=== PATIENT | female | born 1985 | race American Indian/Alaskan Native ===

== ENCOUNTER 2017-01-06 18:04 | Emergency (ER) | payer MEDICAID ==
[2017-01-06 18:30] VITALS: BP 163/99
[2017-01-06] MEDS ORDERED: Diazepam 5 MG Tab ONE (18:40)
[2017-01-06] MEDS ORDERED: Diazepam 5 MG Tab PO ONE (18:43)
[2017-01-06] MEDS ORDERED: Lidocaine 1% 20 ML MDV ONE (18:58)
[2017-01-06] MEDS ORDERED: Lidocaine 1% 20 ML MDV INJECT ONE (19:10)
[2017-01-06] MEDS ORDERED: Bacitracin Oint 30 GM Tube TOP ONE (19:45)
[2017-01-06] MEDS ORDERED: Cephalexin 250 MG Cap PO ONE (19:50)
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
[2017-01-06] MEDS ORDERED: Cephalexin 250 MG Cap ONE (19:56)
== END 2017-01-06 20:10 | disposition home or self-care (01) ==
LOC: KA.ED 18:04
DX: S61.412A Laceration without foreign body of left hand, initial encounter (principal); J45.909 Unspecified asthma, uncomplicated; F41.9 Anxiety disorder, unspecified; F32.9 Major depressive disorder, single episode, unspecified; F17.210 Nicotine dependence, cigarettes, uncomplicated; Z91.09 Other allergy status, other than to drugs and biological substances; Z98.890 Other specified postprocedural states; W26.8XXA Contact with other sharp object(s), not elsewhere classified, initial encounter; Y92.009 Unspecified place in unspecified non-institutional (private) residence as the place of occurrence of the external cause
CPT/HCPCS: 12002; 99283; A9270

== ENCOUNTER 2017-12-05 03:00 | Emergency (ER) | payer MEDICAID ==
[2017-12-05 03:12] VITALS: BP 149/95
[2017-12-05] MEDS: Ibuprofen 600 MG Tab PO ONE (03:30)
[2017-12-05] MEDS: Acetaminophen 500 MG Tab PO ONE (03:30)
[2017-12-05] MEDS ORDERED: Ibuprofen 200 MG Tab PO ONE (03:30)
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
[2017-12-05] MEDS: Ibuprofen 200 MG Tab ONE (03:58)
[2017-12-05] MEDS: Acetaminophen 500 MG Tab ONE (03:58)
== END 2017-12-05 03:50 | disposition home or self-care (01) ==
LOC: KA.ED 03:00
DX: S46.912A Strain of unspecified muscle, fascia and tendon at shoulder and upper arm level, left arm, initial encounter (principal); J45.909 Unspecified asthma, uncomplicated; F17.210 Nicotine dependence, cigarettes, uncomplicated; Z91.011 Allergy to milk products; Z79.899 Other long term (current) drug therapy; X58.XXXA Exposure to other specified factors, initial encounter
CPT/HCPCS: 99283; A9270-GY

== ENCOUNTER 2018-05-27 16:28 | Emergency (ER) | payer MEDICAID ==
[2018-05-27 16:46] VITALS: BP 145/101
[2018-05-27] MEDS: Sodium Chloride 0.9% 1,000 ML IV ONE ×2 (17:00→18:25)
[2018-05-27] MEDS: Ondansetron 4 MG/2 ML SDV IVPUSH ONE ×2 (17:07→18:23)
[2018-05-27 17:25] LABS: ANION GAP 20.3 mmol/L (5-15); CHLORIDE,CL 95 mmol/L (98-115); SODIUM,NA 137 mmol/L (136-145)
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
[2018-05-27] MEDS: HYDROmorphone 1 MG/ML Syringe IVPUSH ONE (18:23)
[2018-05-27] MEDS: LORazepam 2 MG/ML SDV IVPUSH ONE (18:43)
== END 2018-05-27 18:55 ==
LOC: KA.ED 16:33
DX: K81.9 Cholecystitis, unspecified (principal); R11.2 Nausea with vomiting, unspecified; F17.210 Nicotine dependence, cigarettes, uncomplicated; J45.909 Unspecified asthma, uncomplicated; Z91.011 Allergy to milk products
CPT/HCPCS: 80053; 81001; 83690; 85025; 96361; 96374; 96375; 96376; 99285; J1170; J2060; J2405; J7030

== ENCOUNTER 2018-06-07 01:05 | Emergency (ER) | payer MEDICAID ==
[2018-06-07] MEDS: Sodium Chloride 0.9% 5 ML Syringe FLUSH PRN ×2 (01:05→02:05)
[2018-06-07] MEDS ORDERED: Ketorolac 30 MG/ML SDV IVPUSH ONE (02:00)
[2018-06-07 02:02] LABS: ANION GAP 19.8 mmol/L (5-15); CHLORIDE,CL 105 mmol/L (98-115); SODIUM,NA 144 mmol/L (136-145)
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
[2018-06-07] MEDS ORDERED: Sodium Chloride 0.9% 1,000 ML IV ONE (02:05)
[2018-06-07] MEDS ORDERED: Famotidine 20 MG/2 ML SDV IVPUSH ONE (02:25)
[2018-06-07 02:47] VITALS: BP 110/68
== END 2018-06-07 03:00 | disposition home or self-care (01) ==
LOC: KA.ED 01:05
DX: R10.11 Right upper quadrant pain (principal); F10.129 Alcohol abuse with intoxication, unspecified; Y90.8 Blood alcohol level of 240 mg/100 ml or more; Z91.011 Allergy to milk products; Z79.899 Other long term (current) drug therapy
CPT/HCPCS: 80053; 83690; 85025; 85027; 96361; 96374; 96375; 99284; G0480; J1885; J3490; J7030

== ENCOUNTER 2018-07-02 20:25 | Emergency (ER) | payer MEDICAID ==
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
[2018-07-02 21:43] LABS: CHLORIDE,CL 107 mmol/L (98-115); SODIUM,NA 145 mmol/L (136-145)
[2018-07-02] MEDS: Naloxone 0.4 MG/ML Syringe IVPUSH ONE (21:59)
[2018-07-02] MEDS: Naloxone 0.4 MG/ML SDV IVPUSH ONE (21:59)
[2018-07-02 22:44] VITALS: BP 123/78
== END 2018-07-02 22:30 | disposition home or self-care (01) ==
LOC: KA.ED 20:25
DX: F10.920 Alcohol use, unspecified with intoxication, uncomplicated (principal); Z91.011 Allergy to milk products; Z79.899 Other long term (current) drug therapy
CPT/HCPCS: 80053; 80305-QW; 83605; 85025; 96374; 99285; G0480; J2310

== ENCOUNTER 2019-06-18 10:53 | Emergency (ER) | payer MEDICAID ==
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
[2019-06-18] MEDS ORDERED: Sodium Chloride 0.9% 1,000 ML IV ONE (11:10)
[2019-06-18] MEDS ORDERED: Ondansetron 4 MG/2 ML SDV IVPUSH ONE ×2 (11:10→12:25)
[2019-06-18 11:36] VITALS: PULSE 91
[2019-06-18 11:39] LABS: ANION GAP 21.5 mmol/L (5-15); CHLORIDE,CL 100 mmol/L (98-115); SODIUM,NA 141 mmol/L (136-145)
[2019-06-18 11:58] LABS: BARBITURATE SCREEN,URINE NEGATIVE (NEGATIVE); BENZODIAZEPINES SCREEN,URINE NEGATIVE (NEGATIVE); TCA SCREEN,URINE NEGATIVE (NEGATIVE); THC SCREEN,URINE 50 NG/ML NEGATIVE (NEGATIVE)
[2019-06-18 12:20] VITALS: BP 132/69
[2019-06-18] MEDS ORDERED: hydrOXYzine HCl 25 MG Tab PO ONE (14:14)
== END 2019-06-18 14:26 ==
LOC: KA.ED 10:53
DX: F10.230 Alcohol dependence with withdrawal, uncomplicated (principal); K21.9 Gastro-esophageal reflux disease without esophagitis; Z79.899 Other long term (current) drug therapy; Z91.011 Allergy to milk products; Z98.890 Other specified postprocedural states; Z98.51 Tubal ligation status
CPT/HCPCS: 80048; 80305; 80320; 81003; 85025; 96361; 96374; 96376; 99285; A9270; J2405; J7030; G0480

== ENCOUNTER 2019-11-01 17:41 | Inpatient (IN) | payer MEDICAID ==
[2019-11-01] MEDS ORDERED: Sodium Chloride 0.9% 1,000 ML IV ONE (17:48)
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
--- NOTE | 2019-11-01 18:34 | CT ---
[id number] CT/CT Head WO IV EXAM: CT Head WO IV CLINICAL DATA: VOMITING COMPARISON STUDY: CT from 2010. MRI from 2013. FINDINGS: No intracranial hemorrhage, extra-axial fluid collection, mass, or acute ischemia. No hydrocephalus. Mild mucosal thickening in the paranasal sinuses with a small air-fluid level on the left, possibly sinusitis. Mastoid air cells are clear. IMPRESSION: Normal examination of the brain. Mild sinusitis. Kade Velasquez MD 11/01/19 [id number] Thank you for allowing us to participate in the care of your patient.
[2019-11-01 18:48] LABS: ANION GAP 18.9 mmol/L (5-15); CHLORIDE,CL 92 mmol/L (98-115); SODIUM,NA 139 mmol/L (136-145)
[2019-11-01] MEDS ORDERED: D5 1/2 NS w/ 20 mEq/L KCl 1,000 ML IV SCH (19:00)
[2019-11-01] MEDS ORDERED: MVI, Adult with Vitamin K 10 ML in Sodium Chloride 0.9% 1,000 ML IV ONE ×2 (19:01)
[2019-11-01] MEDS ORDERED: Thiamine 100 MG in Sodium Chloride 0.9% 100 ML IV ONE (19:01)
[2019-11-01] MEDS ORDERED: Potassium Chloride 20 MEQ Tab.ER PO ONE (19:02)
[2019-11-01] MEDS ORDERED: chlordiazePOXIDE 25 MG Cap PO ONE (19:02)
[2019-11-01] MEDS ORDERED: Lactulose Soln 10 GM/15 ML 30 ML UD Cup PO PRN (19:04)
[2019-11-01] MEDS ORDERED: Folic Acid 50 MG/10 ML MDV IV SCH (19:15)
[2019-11-01] MEDS ORDERED: Ondansetron 4 MG/2 ML SDV IV PRN (19:22)
[2019-11-01] MEDS ORDERED: chlordiazePOXIDE 25 MG Cap PO PRN (19:24)
[2019-11-01] MEDS ORDERED: THIAMINE IV SCH ×4 (19:26)
[2019-11-01] MEDS ORDERED: FOLIC ACID IV SCH ×4 (19:26)
[2019-11-01] MEDS ORDERED: [UNRECOGNIZED DRUG - OTHER] IV SCH ×4 (19:26)
[2019-11-01] MEDS ORDERED: VITAMIN K IV SCH ×4 (19:26)
[2019-11-01] MEDS ORDERED: MVI IV SCH ×4 (19:26)
[2019-11-01] MEDS ORDERED: FOLIC ACID IV ONE ×4 (19:30)
[2019-11-01] MEDS ORDERED: MVI IV ONE ×4 (19:30)
[2019-11-01] MEDS ORDERED: THIAMINE IV ONE ×4 (19:30)
[2019-11-01] MEDS ORDERED: [UNRECOGNIZED DRUG - OTHER] IV ONE ×4 (19:30)
[2019-11-01] MEDS ORDERED: VITAMIN K IV ONE ×4 (19:30)
[2019-11-01] MEDS ORDERED: Atropine 0.1 MG/ML 10 ML Syringe IVPUSH PRN (20:01)
[2019-11-01] MEDS ORDERED: Lidocaine 2% 100 MG/5 ML Syringe IVPUSH PRN (20:01)
[2019-11-01] MEDS ORDERED: EPINEPHrine 1:10,000 1 MG/10 ML Syringe IVPUSH PRN (20:01)
[2019-11-01] MEDS ORDERED: Nitroglycerin 0.4 MG Tab.SL SL PRN (20:01)
[2019-11-01] MEDS: Non-Formulary Medication 1 Each ONE (20:36)
[2019-11-01] MEDS ORDERED: Mirtazapine 15 MG Tab PO PRN (21:19)
[2019-11-01] MEDS ORDERED: Simethicone 80 MG Tab.Chew PO PRN (21:19)
[2019-11-01] MEDS ORDERED: LORazepam 2 MG/ML SDV IVPUSH PRN (21:23)
[2019-11-02 07:53] LABS: ANION GAP 18.7 mmol/L (5-15); CHLORIDE,CL 97 mmol/L (98-115); SODIUM,NA 141 mmol/L (136-145)
[2019-11-02] MEDS ORDERED: ARIPiprazole 5 MG Tab PO SCH ×3 (09:00→21:00)
[2019-11-02] MEDS: Formoterol/Mometasone 200-5 MCG 8.8 GM Inhaler IH SCH (09:16)
[2019-11-02] MEDS ORDERED: LORazepam 0.5 MG Tab PO PRN (09:34)
[2019-11-02] MEDS ORDERED: Ondansetron 4 MG Tab.DIS PO PRN (09:34)
[2019-11-02] MEDS ORDERED: Albuterol 8 GM Inhaler INH PRN (09:34)
[2019-11-02] MEDS: Omeprazole 20 MG Cap.CR PO SCH (10:27)
[2019-11-02] MEDS: Thiamine 100 MG Tab PO SCH (10:28)
[2019-11-02] MEDS: Meclizine 25 MG Tab PO SCH ×2 (10:28→18:17)
[2019-11-02] MEDS: Potassium Chloride 20 MEQ Tab.ER PO SCH ×2 (10:29→21:21)
[2019-11-02] MEDS: Cholecalciferol (Vitamin D3) 25 MCG Tab PO SCH (10:30)
[2019-11-02] MEDS: Lactulose Soln 10 GM/15 ML 30 ML UD Cup PO SCH (10:30)
[2019-11-02] MEDS: Folic Acid 1 MG Tab PO SCH (10:30)
[2019-11-02] MEDS: Azithromycin 250 MG Tab PO SCH (11:18)
[2019-11-02] MEDS: LORazepam 0.5 MG Tab PO SCH ×2 (15:05→21:20)
[2019-11-02] MEDS: Sodium Chloride 0.9% 10 ML Syringe FLUSH PRN (15:10)
--- NOTE | 2019-11-02 15:10 | US ---
[id number] US/US Abdomen Limited EXAM: ULTRASOUND ABDOMEN LIMITED. INDICATION: ABDOMINAL DISTENTION,RULE OUT ASCITES. COMPARISON: Complete abdominal ultrasound 01/12/2019. DISCUSSION: There is no free fluid identified within the abdomen. It still note is made of gallbladder sludge. No gallbladder wall thickening or pericholecystic fluid. The contestant coordinator reports a positive sonographic Conway's sign. Coarse echotexture of liver consistent with hepatic steatosis. IMPRESSION: 1. No ascites. 2. Hepatic steatosis. 3. Gallbladder sludge without definite sonographic evidence of acute cholecystitis. Raymundo Astorga DO 11/02/19 [id number] Thank you for allowing us to participate in the care of your patient.
[2019-11-02] MEDS: Sodium Chloride 0.9% 1,000 ML IV SCH (15:11)
[2019-11-02] MEDS: Non-Formulary Medication 1 Each ONE (15:59)
[2019-11-02] MEDS: Montelukast 10 MG Tab PO SCH (21:21)
[2019-11-02] MEDS: traZODone 50 MG Tab PO SCH (21:21)
[2019-11-03] MEDS: Meclizine 25 MG Tab PO SCH ×3 (02:39→17:07)
[2019-11-03] MEDS: Sodium Chloride 0.9% 1,000 ML IV SCH ×2 (02:39→16:33)
[2019-11-03 07:49] LABS: ANION GAP 14.7 mmol/L (5-15); CHLORIDE,CL 101 mmol/L (98-115); SODIUM,NA 138 mmol/L (136-145)
--- NOTE | 2019-11-03 08:56 | PN ---
11/02/2019 PATIENT NAME: LA LEA HISTORY OF PRESENT ILLNESS: This is a 34-year-old female, who is admitted through the emergency room last evening, on November 01, 2019, by CHANDRA Ferrara. She was seen in the clinic on 10/30/2019, with vertical and possible labyrinthitis. She was treated with azithromycin as well as meclizine and ondansetron. She had minimal improvement. Apparently last evening, she had a new onset of mild confusion with associated dizziness and nausea and vomiting. The patient states the patient woke up yesterday morning, confused and disoriented. The patient does have a history of significant alcohol use in the past. The reported to the ER provider that the patient has not been drinking a lot lately. The patient did have three glasses of red wine on the day of admission. The reported that he is not clear that that is true since they have no wine in the house. The patient reports to me that her last drink was on . Significant lab data from the emergency room showed a normal CBC with the exception of a mildly low hemoglobin of 11.7 with a normal being 12-16. Her ammonia level was 38 with a normal range being 11-32, and she was given a dose of lactulose 20 mg daily. AST is elevated at 154 with a normal range being 15- 37. ALT is normal at 54 with a normal range being 12-78. Total bilirubin 3.8 with a normal being 0.2-1.0. BUN and creatinine are normal at 15 and 0.65 respectively with a GFR of greater than 60. She did have a blood alcohol level of less than 3. Urine had protein as well as glucose and ketones. Large amount of bilirubin, greater than 8.0, urobilinogen. In the emergency room, she received folic acid, she received IV fluids, a liter bolus of D5 and half with 20 mEq KCl. She was given thiamine as well. She was given a banana bag. She was given a one time dose of potassium. Librium p.r.n. She did have a CT of her brain which was negative. Today, lab work is reviewed and the following abnormalities are noted. Hemoglobin 10.6; potassium 2.7; total bilirubin 3.0. AST 131. Liver function studies have improved. Ammonia level today is 36, previously 38. Janie, the patient's nurse caring for her, is concerned that she does have some abdominal distention and is concerned that she may have some ascites. She does have some jaundice. She is , so the jaundice is only noticed in her sclera. The patient is also complaining of some lower extremity discomfort, possibly related to her hypokalemia. I did frankly address her alcohol intake with her. I had a mariel discussion with her regarding the fact that her alcohol use is starting to affect her overall health with damage to her liver as well as impairment of the liver's ability to filter out ammonia. She did seem to understand the conversation. PHYSICAL EXAMINATION: VITAL SIGNS: Temp is 98, pulse 111, respirations 20, blood pressure 110/70, O2 saturation is 96% on room air. SKIN: Warm and dry to touch. She does have scleral jaundice. CARDIAC: Reveals S1, S2 to be normal. Rate and rhythm are regular. No murmur, click, or gallop is auscultated. LUNGS: Clear with possible diminished lung sounds in the bases. The patient is a smoker. ABDOMEN: Somewhat distended and somewhat bloated. Bowel sounds are present in all four quadrants. There is no pedal edema. IMPRESSION: 1. Labyrinthitis, treated with azithromycin as well as meclizine and ondansetron. Little relief in failure of outpatient treatment. 2. Acute confusion, etiology unclear. Possibly related to alcohol use and elevated ammonia level. 3. Elevated bilirubin as well as AST, most likely related to alcoholism. 4. Hypokalemia. She will be given 40 mg of potassium today orally b.i.d. 5. Abdominal distention, possible ascites. She will be scheduled for an abdominal ultrasound today. 6. Lower extremity discomfort, most likely related to hypokalemia. 7. The nursing staff is also concerned of the concentration of her liver, most likely related to elevated bilirubin. We will start her on IV fluids of normal saline with potassium at 75 mL an hour. We will continue to follow closely. I anticipate her being in the hospital now for the next couple of days. Possible discharge in mid to later in the week. /[id number]/MODL
[2019-11-03] MEDS ORDERED: Potassium Bicarbonate 25 MEQ Tab.EFF PO SCH (09:00)
[2019-11-03] MEDS ORDERED: Non-Formulary Medication 1 Each (Cyanocobalamin (Vitamin B-12) [Vitamin B-12] 100 MCG) PO SCH (09:00)
[2019-11-03] MEDS ORDERED: Iopamidol 755 Mg/ML 100 ML Bottle IV ONE (09:14)
[2019-11-03] MEDS ORDERED: Sodium Chloride 0.9% 50 ML IV SCH (09:15)
[2019-11-03] MEDS: Formoterol/Mometasone 200-5 MCG 8.8 GM Inhaler IH SCH (09:42)
[2019-11-03] MEDS ORDERED: Magnesium Sulfate/Water 2 GM in Premix Bag 1 BAG IV ONE (10:39)
[2019-11-03] MEDS: LORazepam 0.5 MG Tab PO SCH ×2 (11:29→20:48)
[2019-11-03] MEDS: Folic Acid 1 MG Tab PO SCH (11:29)
[2019-11-03] MEDS: Lactulose Soln 10 GM/15 ML 30 ML UD Cup PO SCH (11:29)
[2019-11-03] MEDS: Cholecalciferol (Vitamin D3) 25 MCG Tab PO SCH (11:30)
[2019-11-03] MEDS: Thiamine 100 MG Tab PO SCH (11:30)
[2019-11-03] MEDS: Potassium Chloride 20 MEQ Tab.ER PO SCH ×2 (11:30→20:49)
[2019-11-03] MEDS: Omeprazole 20 MG Cap.CR PO SCH (11:30)
[2019-11-03] MEDS: Azithromycin 250 MG Tab PO SCH (11:30)
--- NOTE | 2019-11-03 12:10 | CT ---
[id number] CT/CT Chest Abdomen Pelvis W IV EXAM: CT Chest Abdomen Pelvis W IV CLINICAL DATA: ELEVATED LIVER ENZYMES, ABDOMINAL DISTENTION. COMPARISON STUDY: CT from June 2018. FINDINGS: No suspicious lung nodules or masses. Subsegmental atelectasis and/or scarring in both lung bases. Heart is normal in size and contour. No pericardial effusion. Thoracic aorta is normal in caliber. No dissection. No mediastinal or hilar lymphadenopathy. Abdomen/pelvis: Liver demonstrates changes of diffuse steatosis and hepatomegaly. There is geographic hyperdensity in the superior right hepatic lobe. However no focal lesions or biliary ductal dilation. Portal vein is normal in caliber. Gallbladder is distended but otherwise unremarkable. Pancreas, adrenal glands, spleen, and kidneys are unremarkable. No ascites. No lymphadenopathy in the abdomen or pelvis. Uterus and adnexal regions are unremarkable. Bones/soft tissues: Unremarkable. IMPRESSION: Hepatomegaly and diffuse steatosis. No focal hepatic lesions, described above. Gallbladder distention without radiographic evidence of cholelithiasis or acute cholecystitis. Findings are similar to prior CT examination from 2018. Other findings are described above. Kade Velasquez MD 11/03/19 [id number] Thank you for allowing us to participate in the care of your patient.
[2019-11-03] MEDS: Montelukast 10 MG Tab PO SCH (20:48)
[2019-11-03] MEDS: traZODone 50 MG Tab PO SCH (20:49)
[2019-11-04] MEDS: Meclizine 25 MG Tab PO SCH ×3 (02:31→17:50)
[2019-11-04] MEDS: Sodium Chloride 0.9% 1,000 ML IV SCH ×2 (06:42→20:32)
[2019-11-04 07:57] LABS: CHLORIDE,CL 104 mmol/L (98-115); SODIUM,NA 139 mmol/L (136-145)
[2019-11-04] MEDS: Cholecalciferol (Vitamin D3) 25 MCG Tab PO SCH (08:19)
[2019-11-04] MEDS: LORazepam 0.5 MG Tab PO SCH ×2 (08:19→20:41)
[2019-11-04] MEDS: Azithromycin 250 MG Tab PO SCH (08:19)
[2019-11-04] MEDS: Potassium Chloride 20 MEQ Tab.ER PO SCH ×2 (08:19→20:44)
[2019-11-04] MEDS: Lactulose Soln 10 GM/15 ML 30 ML UD Cup PO SCH ×4 (08:19→20:45)
[2019-11-04] MEDS: Folic Acid 1 MG Tab PO SCH (08:20)
[2019-11-04] MEDS: Thiamine 100 MG Tab PO SCH (08:20)
[2019-11-04] MEDS: Omeprazole 20 MG Cap.CR PO SCH (08:20)
[2019-11-04] MEDS: Formoterol/Mometasone 200-5 MCG 8.8 GM Inhaler IH SCH (08:23)
--- NOTE | 2019-11-04 09:31 | PCM.PN ---
- General Info Date of Service: 11/04/19 Admission Dx/Problem (Free Text): Altered mental status, hypokalemia. - Review of Systems Systems Review Comment:: Archana is seen today in inpatient rounds. She was admitted on 11/01/2019 with altered mental status and hypokalemia. She had been seen the previous day in the clinic and diagnosed with labyrinthitis. She has a hx of alcohol abuse and her ammonia level was elevated upon admission. She was started on lactulose 20 grams PO daily. Ammonia was normal yesterday at 29 but today is 51. She notes this morning on rounds she feels more confused. She oriented, however. She is resting soundly when I see her. She denies any other concerns. She as having muscle cramping yesterday and her magnesium was noted to be low and that was replaced and she feels better. Her potassium is normal now. - Patient Data Vitals - Most Recent: Last Vital Signs Temp 96.5 F 11/04/19 06:48 Pulse 88 11/04/19 06:48 Resp 24 H 11/04/19 06:48 BP 115/73 11/04/19 06:48 Pulse Ox 95 11/04/19 06:48 Weight - Most Recent: 152 lb 9 oz I&O - Last 24 Hours: Intake & Output 11/03/19 11/04/19 11/04/19 22:59 06:59 14:59 Intake Total 1409 772 Output Total 500 450 Balance 909 322 Lab Results Last 24 Hours: Laboratory Results - last 24 hr 11/03/19 11/04/19 11/04/19 Range/Units 07:05 07:00 07:00 WBC 11.40 H (5.00-10.00) 10^3/uL RBC 2.86 L (3.80-5.50) 10^6/uL Hgb 9.8 L (12.0-16.0) g/dL Hct 30.4 L (37.0-47.0) % MCV 106.3 H (82.0-92.0) fL MCH 34.3 H (27.0-31.0) pg MCHC 32.2 (32.0-36.0) g/dL RDW 16.6 H (11.5-14.5) % Plt Count 233 (150-400) 10^3/uL MPV 9.5 (7.4-10.4) fL Add Manual Diff Yes Neutrophils % (Manual) 68 (50-70) % Lymphocytes % (Manual) 18 L (20-40) % Monocytes % (Manual) 12 H (2-8) % Eosinophils % (Manual) 2 (1-3) % Absolute Neutrophils 7.7520 Lymphocytes # (Manual) 2.0520 Monocytes # (Manual) 1.3680 Eosinophils # (Manual) 0.2280 Sodium 139 (136-145) mmol/L Potassium 4.2 (3.3-5.3) mmol/L Chloride 104 (98-115) mmol/L Carbon Dioxide 23.2 (21.0-32.0) mmol/L Anion Gap 16.0 H (5-15) mmol/L BUN 5 L (6-25) mg/dL Creatinine 0.50 L (0.51-1.17) mg/dL Est Cr Clr Drug Dosing 112.80 mL/min Estimated GFR (MDRD) > 60 mL/min Glucose 103 H (75 - 99) mg/dL Calcium 8.5 L (8.7-10.3) mg/dL Magnesium 1.5 L 1.9 (1.8-2.4) mg/dL Total Bilirubin 2.6 H (0.2-1.0) mg/dL AST 75 H (15-37) U/L ALT 31 (12-78) U/L Alkaline Phosphatase 103 (46-116) IU/L Ammonia (11-32) umol/L Total Protein 6.2 L (6.4-8.2) g/dL Albumin 2.60 L (3.00-4.80) g/dL 11/04/19 Range/Units 07:00 WBC (5.00-10.00) 10^3/uL RBC (3.80-5.50) 10^6/uL Hgb (12.0-16.0) g/dL Hct (37.0-47.0) % MCV (82.0-92.0) fL MCH (27.0-31.0) pg MCHC (32.0-36.0) g/dL RDW (11.5-14.5) % Plt Count (150-400) 10^3/uL MPV (7.4-10.4) fL Add Manual Diff Neutrophils % (Manual) (50-70) % Lymphocytes % (Manual) (20-40) % Monocytes % (Manual) (2-8) % Eosinophils % (Manual) (1-3) % Absolute Neutrophils Lymphocytes # (Manual) Monocytes # (Manual) Eosinophils # (Manual) Sodium (136-145) mmol/L Potassium (3.3-5.3) mmol/L Chloride (98-115) mmol/L Carbon Dioxide (21.0-32.0) mmol/L Anion Gap (5-15) mmol/L BUN (6-25) mg/dL Creatinine (0.51-1.17) mg/dL Est Cr Clr Drug Dosing mL/min Estimated GFR (MDRD) mL/min Glucose (75 - 99) mg/dL Calcium (8.7-10.3) mg/dL Magnesium (1.8-2.4) mg/dL Total Bilirubin (0.2-1.0) mg/dL AST (15-37) U/L ALT (12-78) U/L Alkaline Phosphatase (46-116) IU/L Ammonia 51 H (11-32) umol/L Total Protein (6.4-8.2) g/dL Albumin (3.00-4.80) g/dL Med Orders - Current: Current Medications Albuterol (Ventolin Hfa) 0 gm INH Q4H PRN PRN Reason: Wheezing Atropine Sulfate (Atropine 0.1 Mg/Ml) 0 mg IVPUSH ASDIRECTED PRN PRN Reason: Heart. Azithromycin (Zithromax) 250 mg PO DAILY [facility] Last Admin: 11/04/19 08:19 Dose: 250 mg Cholecalciferol (Vitamin D3) 50 mcg PO DAILY [facility] Last Admin: 11/04/19 08:19 Dose: 50 mcg Epinephrine HCl (Epinephrine 1:10,000) 1 mg IVPUSH ASDIRECTED PRN PRN Reason: Heart. Folic Acid (Folic Acid) 1 mg PO DAILY [facility] Last Admin: 11/04/19 08:20 Dose: 1 mg Sodium Chloride (Normal Saline) 1,000 mls @ 75 mls/hr IV ASDIRECTED [facility] Last Admin: 11/04/19 06:42 Dose: 75 mls/hr Sodium Chloride (Normal Saline) 50 mls @ 200 mls/min IV ASDIRECTED [facility] Last Admin: 11/03/19 11:17 Dose: 200 mls/min Lactulose (Cephulac) 20 gm PO TID [facility] Lidocaine HCl (Xylocaine 2%) 0 mg IVPUSH ASDIRECTED PRN PRN Reason: Heart. Lorazepam (Ativan) 1 mg IVPUSH Q4H PRN PRN Reason: Withdrawal Symptoms Lorazepam (Ativan) 0.5 mg PO BID [facility] Last Admin: 11/04/19 08:19 Dose: 0.5 mg Meclizine HCl (Antivert) 25 mg PO Q8H [facility] Last Admin: 11/04/19 02:31 Dose: 25 mg Mirtazapine (Remeron) 15 mg PO DAILY PRN PRN Reason: Insomnia Mometasone Furoate/Formoterol Fumar (Dulera 200-5 Mcg) 2 puff IH DAILY [facility] Last Admin: 11/04/19 08:23 Dose: 2 puff Montelukast Sodium (Singulair) 10 mg PO BEDTIME [facility] Last Admin: 11/03/19 20:48 Dose: 10 mg Nitroglycerin (Nitrostat) 0.4 mg SL ASDIRECTED PRN PRN Reason: Heart. Omeprazole (Omeprazole) 40 mg PO DAILY [facility] Last Admin: 11/04/19 08:20 Dose: 40 mg Ondansetron HCl (Zofran) 4 mg IV Q6H PRN PRN Reason: Nausea/Vomiting Ondansetron HCl (Zofran Odt) 4 mg PO Q6H PRN PRN Reason: Nausea/Vomiting Potassium Chloride (Klor-Con M20) 40 meq PO BID [facility] Last Admin: 11/04/19 08:19 Dose: 40 meq Simethicone (Simethicone) 80 mg PO DAILY PRN PRN Reason: Dyspepsia Sodium Chloride (Saline Flush) 10 ml FLUSH Q8HR PRN PRN Reason: keep vein open Last Admin: 11/02/19 15:10 Dose: 10 ml Thiamine HCl (Vitamin B-1) 100 mg PO DAILY [facility] Last Admin: 11/04/19 08:20 Dose: 100 mg Trazodone HCl (Trazodone) 100 mg PO BEDTIME [facility] Last Admin: 11/03/19 20:49 Dose: 100 mg Discontinued Medications Chlordiazepoxide HCl (Librium) 50 mg PO ONETIME ONE Stop: 11/01/19 19:03 Last Admin: 11/01/19 20:24 Dose: 50 mg Chlordiazepoxide HCl (Librium) 25 mg PO TID PRN PRN Reason: Agitation Sodium Chloride (Normal Saline) 1,000 mls @ 999 mls/hr IV .BOLUS ONE Stop: 11/01/19 18:48 Last Admin: 11/01/19 18:52 Dose: 999 mls/hr Folic Acid 1 mg/ Multivitamins /Minerals 10 ml/ Thiamine HCl 100 mg/ Potassium Chloride/Dextrose/Sod Cl 1,011.2 mls @ as directed IV .STK-MED ONE Stop: 11/01/19 19:31 Folic Acid 1 mg/ Multivitamins /Minerals 10 ml/ Thiamine HCl 100 mg/ Potassium Chloride/Dextrose/Sod Cl 1,011.2 mls @ 100 mls/hr IV ASDIRECTED [facility] Last Admin: 11/01/19 19:32 Dose: 100 mls/hr Magnesium Sulfate 2 gm/ Premix 50 mls @ 100 mls/hr IV ONETIME ONE Stop: 11/03/19 11:08 Last Admin: 11/03/19 11:34 Dose: 100 mls/hr Iopamidol (Isovue-370 (76%)) 100 ml IV ONETIME ONE Stop: 11/03/19 09:15 Last Admin: 11/03/19 11:17 Dose: 100 ml Lactulose (Cephulac) 20 gm PO DAILY PRN PRN Reason: Agitation Lactulose (Cephulac) 20 gm PO DAILY [facility] Last Admin: 11/04/19 08:19 Dose: 20 gm Lorazepam (Ativan) 1 mg PO BEDTIME PRN PRN Reason: Anxiety Non-Formulary Medication (Nf Drug) 1 each .XX ONETIME ONE Stop: 11/01/19 19:28 Last Admin: 11/02/19 15:59 Dose: Not Given Potassium Bicarbonate (Klor-Con Ef) 25 meq PO DAILY [facility] Potassium Chloride (Klor-Con M20) 40 meq PO ONETIME ONE Stop: 11/01/19 19:03 Last Admin: 11/01/19 20:23 Dose: 40 meq - Exam General: Alert, Oriented, Cooperative, No Acute Distress Lungs: Clear to Auscultation, Normal Respiratory Effort Cardiovascular: Regular Rate, Regular Rhythm, No Murmurs GI/Abdominal Exam: Normal Bowel Sounds, Soft, Non-Tender Extremities: No Pedal Edema Sepsis Event Note - Evaluation Sepsis Screening Result: Severe Sepsis Risk - Focused Exam Vital Signs: Vital Signs Temp Pulse Resp BP Pulse Ox 11/04/19 06:48 96.5 F 88 24 H 115/73 95 11/04/19 02:43 97.1 F 100 24 H 106/64 93 L 11/03/19 23:00 96.1 F 98 24 H 103/65 97 Date Exam was Performed: 11/04/19 Time Exam was Performed: 09:25 - Problem List Review Problem List Initiated/Reviewed/Updated: Yes - My Orders Last 24 Hours: My Active Orders 11/03/19 09:15 Sodium Chloride 0.9% [Normal Saline] 50 ml IV ASDIRECTED 11/04/19 09:00 Lactulose [Cephulac] 20 gm PO TID - Assessment Assessment:: Altered mental status Hypokalemia Hyperammonemia Hx of alcohol abuse Hypomagnesemia Bipolar disorder Anemia, chronic - Plan Plan:: Altered mental status, subjectively more confused today with elevated ammonia today. Will increase lactulose. Hypokalemia, resolved. Hyperammonemia,m increase lactulose to 20 grams PO TID. She will likely need to be on his as an outpatient. Hx of alcohol abuse Hypomagnesemia, resolved with replacement. Bipolar disorder, continue outpatient meds. Anemia, chronic, no indication for blood transfusion.
--- NOTE | 2019-11-04 11:30 | PN ---
11/03/2019 PATIENT NAME: LA LEA HISTORY OF PRESENT ILLNESS: This is a 34-year-old female who was admitted through the emergency room on 11/01/2019. She was initially seen in the clinic on 10/30/2019, with vertigo and possible labyrinthitis. She was treated with azithromycin as well as meclizine and ondansetron. She had minimal improvement. She had presented to the ER on the with confusion associated with dizziness, nausea, and vomiting. She had woke up the day of admission with confusion and disorientation. The patient does have a history of alcohol abuse and possible alcoholism. She did report to the ER provider that she had three glasses of wine on the day of admission, however, her declined this was true due to the fact that they had no wine in house. The patient's last drink was on , 10/29/2019. Yesterday, there was concern that she had abdominal distention. We did do an ultrasound of her abdomen which showed some steatosis of the liver, however, no ascites. She continues to have some abdominal distention as well as some shortness of breath. She has been hypokalemic since admission and was treated with oral potassium replacement. Today, her potassium is normal at 3.4. She had an elevated ammonia level at 38 on admission which decreased to 36 yesterday and now after 2 days of lactulose her ammonia level is 29. Liver function tests are improving. ALT has been normal. AST has been elevated as high as 154 on admission and now is 99, which is still elevated. Her renal function is good. She has just a little bit of a white count today of 10,000. It has been normal up until this point. She does not have any fever. We did check a magnesium today and found to be 1.5. The patient has been complaining of some lower extremity discomfort, which prompted us to check her magnesium. There has been mariel discussion with the patient in regard to her alcohol use and the effect that it is having on her health. PHYSICAL EXAMINATION: VITAL SIGNS: Temp is 97, pulse 95, respirations 16, blood pressure 111/77, and O2 saturation is 94% on room air. SKIN: Warm and dry to touch. HEENT: Sclerae are jaundice. CARDIAC: Reveals S1, S2 to be normal. Rate and rhythm are regular. No murmur, click, or gallop is auscultated. LUNGS: She does have some fine rales in the right lower lobe. The remainder of the lung [place] are clear. ABDOMEN: Distended, nontender. No hepatosplenomegaly or masses palpated. Bowel sounds are present in all four quadrants. There is no pedal edema. IMPRESSION: 1. Labyrinthitis. She is being treated with azithromycin as well as meclizine and ondansetron. She did have little relief as an outpatient and did fail outpatient treatment. She continues on both in the hospital. 2. Acute confusion, etiology unclear. CT scan in the emergency room was negative. This may be related to her alcohol abuse and elevated ammonia level. 3. Elevated bilirubin as well as AST, most likely related to alcoholism. These are trending downward. As previously mentioned, her AST was initially 154 and is now 19. Her total bilirubin has improved from 3.1 to 2.8. 4. Hypokalemia. She is now normal clinic with a potassium of 3.4. We will continue potassium supplementation. 5. Abdominal distention with ascites ruled out by ultrasound. We did do an abdominal and pelvis CT with contrast, which did not show any acute findings. 6. Lower extremity discomfort, most likely related to hypomagnesemia. 7. Hypomagnesemia. She was given 2 g of magnesium today intravenously. We will check her magnesium beginning tomorrow. 8. She did have quite concentrated urine and was possibly dry yesterday. We did start her on normal saline at 75 mL an hour. 9. Shortness of breath with activity as well as rales in the right lower quadrant. We did do a CT of her chest, which showed no acute findings either. We will continue to monitor closely. Thankfully, the patient is improving. We will entertain possibly discharging her from the hospital on or Saturday of this week. I have communicated my findings with Dr. La Nena Miller, who will see the patient tomorrow in my absence. I will see the patient again on and plan for her discharge. I did address the patient's alcohol abuse with her and willing to be of any assistance I can as far as getting her into the proper treatment program. She will consider this. /[id number]/MODL
[2019-11-04] MEDS: Ibuprofen 600 MG Tab PO PRN (15:28)
[2019-11-04] MEDS: Montelukast 10 MG Tab PO SCH (20:43)
[2019-11-04] MEDS: traZODone 50 MG Tab PO SCH (20:44)
[2019-11-05] MEDS: Meclizine 25 MG Tab PO SCH ×3 (01:12→16:49)
[2019-11-05] MEDS: Ibuprofen 600 MG Tab PO PRN (07:56)
[2019-11-05 08:10] LABS: ANION GAP 17.2 mmol/L (5-15); CHLORIDE,CL 107 mmol/L (98-115); SODIUM,NA 144 mmol/L (136-145)
[2019-11-05] MEDS: Lactulose Soln 10 GM/15 ML 30 ML UD Cup PO SCH ×4 (08:18→20:38)
[2019-11-05] MEDS: Folic Acid 1 MG Tab PO SCH (08:18)
[2019-11-05] MEDS: LORazepam 0.5 MG Tab PO SCH ×2 (08:18→20:38)
[2019-11-05] MEDS: Potassium Chloride 20 MEQ Tab.ER PO SCH (08:18)
[2019-11-05] MEDS: Thiamine 100 MG Tab PO SCH (08:18)
[2019-11-05] MEDS: Cholecalciferol (Vitamin D3) 25 MCG Tab PO SCH (08:18)
[2019-11-05] MEDS: Omeprazole 20 MG Cap.CR PO SCH (08:18)
[2019-11-05] MEDS: Formoterol/Mometasone 200-5 MCG 8.8 GM Inhaler IH SCH (08:47)
[2019-11-05] MEDS: traZODone 50 MG Tab PO SCH (20:37)
[2019-11-05] MEDS: Montelukast 10 MG Tab PO SCH (20:37)
[2019-11-05] MEDS: Sodium Chloride 0.9% 10 ML Syringe FLUSH PRN (20:44)
[2019-11-06] MEDS: Meclizine 25 MG Tab PO SCH ×2 (02:47→09:25)
[2019-11-06] MEDS: Folic Acid 1 MG Tab PO SCH (08:31)
[2019-11-06] MEDS: Lactulose Soln 10 GM/15 ML 30 ML UD Cup PO SCH (08:31)
[2019-11-06] MEDS: Omeprazole 20 MG Cap.CR PO SCH (08:31)
[2019-11-06] MEDS: LORazepam 0.5 MG Tab PO SCH (08:31)
[2019-11-06] MEDS: Thiamine 100 MG Tab PO SCH (08:31)
[2019-11-06] MEDS: Formoterol/Mometasone 200-5 MCG 8.8 GM Inhaler IH SCH (08:32)
[2019-11-06] MEDS: Cholecalciferol (Vitamin D3) 25 MCG Tab PO SCH (08:32)
[2019-11-06 08:35] LABS: ANION GAP 22.1 mmol/L (5-15); CHLORIDE,CL 100 mmol/L (98-115); SODIUM,NA 139 mmol/L (136-145)
--- NOTE | 2019-11-06 08:43 | PN ---
11/05/2019 PATIENT NAME: LA LEA HISTORY OF PRESENT ILLNESS: This is a 34-year-old female, who was admitted through the emergency room on 11/01/2019 with vertigo and possible labyrinthitis as well as mental confusion. She was seen in the clinic on 10/30/2019 for the same and was treated with azithromycin as well as meclizine and ondansetron. The patient does have a history of alcohol abuse and her ammonia level was elevated on admission. She was started on lactulose 20 mg p.o. daily. Her ammonia was normal on 11/03/2019; however, yesterday went up to 51. Lactulose was increased to t.i.d. Initially, her ammonia level was reported out this morning as 27; however, was corrected to be 68. We will increase her lactulose to q.i.d. The patient reports she feels more confused and has thought that she was talking to people that were not there and that people have visited her that have not been there. She is oriented though. She was having muscle cramping in her legs on 11/03/2019; however, this was improved with magnesium. Pertinent lab results, she does have a mild white count of 10,520. CMP is normal with the exception of an elevated bilirubin of 3.0, which is about where it has been during this hospitalization. Her AST has improved from 154 to 68. Total protein and albumin are low at 5.9 and 2.49 respectively. Iron studies were performed, which showed a normal serum iron, elevated ferritin of 887, TIBC of 247, and unsaturated IBC of 106. Magnesium was normal yesterday after being replaced with oral magnesium. Her potassium today was 5.0. Ammonia level today was 68 as previously reported. The patient continues to complain of some abdominal distention. She has had CT scans of her head, chest, abdomen and pelvis with no acute findings. PHYSICAL EXAMINATION: VITAL SIGNS: Temperature is 96.9, pulse 96, respirations 20, blood pressure 105/63, O2 saturation is 93% on room air. EYES: Sclerae are jaundiced. SKIN: Warm and dry to touch. CARDIAC: Reveals S1, S2 to be normal. Rhythm is normal. She is somewhat tachycardic in the 115s. No murmur, click, or gallop is appreciated. LUNGS: Clear without rales, wheezes, or rhonchi. ABDOMEN: Soft, somewhat distended, with positive bowel sounds in all 4 quadrants. There is no pedal edema. IMPRESSION: 1. Labyrinthitis. We did discontinue her azithromycin since she has been treated with the antibiotic for 6 days. She will continue on meclizine as well as ondansetron. 2. Confusion, etiology unclear. CT of the head was negative. This may be related to the elevated ammonia level. 3. Elevated bilirubin. This continues to be elevated and is not trending downward. 4. Elevated aspartate aminotransferase. This is still elevated; however, is trending downward. 5. Hypokalemia. She is now normokalemic and we will discontinue her potassium supplement. 6. Abdominal distention with ascites ruled out by ultrasound as well as CT. 7. Lower extremity discomfort, improved after magnesium replacement. 8. Hypomagnesemia. She was given 2 g of magnesium on 11/03/2019, and now her magnesium is normal. 9. She is drinking adequately and having regular voids. We did discontinue her IV fluids today. 10.Shortness of breath with activity. She did have rales two days ago. We did do a CT of her chest, which was negative. She is becoming somewhat deconditioned. I did request the nursing staff to get her up and walk her today. We will entertain discharge tomorrow with her going home on oral lactulose. We have again had a mariel discussion about her alcohol use and the fact that she should consider never drinking alcohol again. She verbalizes understanding. We will continue to monitor. I will see her tomorrow and consider discharge if everything is stable. We did add a hepatitis panel onto her lab work today to rule out any kind of hepatitis etiology for liver dysfunction. /[id number]/MODL
[2019-11-06] MEDS: Ibuprofen 600 MG Tab PO PRN (10:47)
[2019-11-06 11:53] VITALS: BP 114/69; PULSE 105
--- NOTE | 2019-11-09 08:29 | DISCH ---
DISCHARGE/TRANSFER NOTE This is a 34-year-old female, who has been hospitalized with vertigo, possible labyrinthitis, mental confusion, elevated bilirubin, elevated aspartate aminotransferase, hypomagnesemia, hypokalemia, and elevated ammonia level. She was initially seen in the clinic a week ago on 10/30/2019 for what was thought to be labyrinthitis. She was treated with azithromycin as well as meclizine and ondansetron. She came into the emergency room on 11/01/2019 with vertigo, mental confusion, and some disorientation. The patient does have a history of alcohol abuse and her ammonia level was elevated on admission. She was started on lactulose 20 mg p.o. daily. She did have a normal ammonia level on 11/03/2019 and lactulose was continued. On 11/04/2019, her ammonia level went up to 51. Her lactulose was increased by my colleague, Dr. La Nena Caldera to 20 mg t.i.d. Yesterday morning, her ammonia level was 68. We increased her lactulose to q.i.d., continuing the 20 mg dose. This morning, her ammonia level is 21. She was hypokalemic upon admission and was treated with oral potassium. This has corrected and her potassium today is 4.9. She did have a low magnesium of 1.5 on 11/03/2019. This was replaced with 2 g of IV magnesium and her magnesium was 1.9 the following day. BUN and creatinine have been normal. She does have a mild white count of 11,150. Typically when I go in to see the patient, her is not with her. Today, her was with her and she was crying, reporting that she felt so short of breath as well as had quite a bit of abdominal distention and pain. She is having regular bowel movements. She was also complaining of increase in vertigo and nystagmus symptoms. She has had some mental confusion and some nystagmus and visual changes which I felt were possibly related to her elevated ammonia level. She did have multiple CT scans including a CT of her head without IV contrast which was reported as normal. She has also had CT scans of her chest, abdomen, and pelvis, which were really not conclusive for any acute findings. I did request a physical therapy consultation today for possible Catrachito maneuver. Physical therapist reported to me that her nystagmus is quite profound. Also, a part of the patient's history that I only learned yesterday afternoon was the fact that she has a history of pituitary tumor, which was considered benign and was followed for several years; however, has not been followed in the last 3 to 4 years. This did not appear on her CT scan; however, she does need an MRI of the brain. This is not a service I can offer to the patient at this time as we will not have MRI until next week. PHYSICAL EXAMINATION: VITAL SIGNS: Temp is 98.8, pulse 95, respirations 18, blood pressure 113/74, O2 sat is 97% on room air. SKIN: Warm and dry to touch. CARDIAC: Reveals S1, S2 to be normal. Rate and rhythm are regular. No murmur, click, or gallop is auscultated. LUNGS: Clear without rales, wheezes, or rhonchi. ABDOMEN: Somewhat distended without any hepatosplenomegaly. Bowel sounds are present in all 4 quadrants. There is no pedal edema. NEUROLOGIC: The patient is alert and oriented to time, place, person and self; however, she does report some delusions of people visiting, which have not been there and also some confusion as to where she is at. She does have considerable nystagmus noted mostly on the right side. Physical therapy reported nystagmus in all visual [place]. There is no upper or lower extremity weakness. The patient does have intact deep tendon reflexes. IMPRESSION: 1. Persistent mental confusion, delusions as well as nystagmus, not improved with correction of her ammonia level. I believe she does need an MRI of the brain with contrast. I am not able to offer that service at this time in this facility. Her initially wanted the patient left here for possible physical therapy; however, the patient is unable to ambulate with nystagmus she is experiencing. I do question whether there is a pituitary tumor there that is possibly encroaching on her optic chiasm. The patient is not improving from this standpoint and I feel transfer is important if not urgent. 2. Hypokalemia. This has resolved. 3. Hypomagnesemia. This has resolved. 4. Elevated ammonia level secondary to alcohol abuse. This is now corrected. We will continue lactulose. 5. Labyrinthitis. She has been treated fully for this with azithromycin as well as meclizine and ondansetron. She was treated with 6 days of azithromycin. This has not improved. 6. Elevated bilirubin. This continues to be elevated, is not trending downward; in fact, is going up. 7. Abdominal distention with ascites ruled out. 8. Lower extremity discomfort which improved and resolved after magnesium replacement. I did contact [facility] in [place]. I spoke with the [facility] nurse who connected me with Dr. Campbell, an ER physician at the [facility] in [place] [id number]. I presented the case to him. He did feel that transfer was necessary. I did speak with the patient's who was agreeable to this plan of care. Hopefully, she will be able to have MRI imaging of her brain with contrast to rule out any kind of involvement of this pituitary tumor that she has a history of. All lab and progress notes as well as imaging will be included in the patient's discharge/transfer packet. Hopefully, the patient's condition will improve. /[id number]/MODL
== END 2019-11-06 13:00 | DRG 640 ==
LOC: KA.ED 17:41 → KA.MS 19:21
PROVIDERS: ADMIT Physician Assistant Medical; ATTEND Internal Medicine
DX: E87.6 Hypokalemia (principal); G93.41 Metabolic encephalopathy; E72.4 Disorders of ornithine metabolism; F10.230 Alcohol dependence with withdrawal, uncomplicated; E83.42 Hypomagnesemia; F31.9 Bipolar disorder, unspecified; D64.9 Anemia, unspecified; D49.7 Neoplasm of unspecified behavior of endocrine glands and other parts of nervous system; F22 Delusional disorders; H55.00 Unspecified nystagmus; K21.9 Gastro-esophageal reflux disease without esophagitis; H83.09 Labyrinthitis, unspecified ear; Z79.899 Other long term (current) drug therapy
CPT/HCPCS: 36415; 70450; 71260; 74177; 76705; 80053; 80074; 81001; 82140; 82728; 83540; 83550; 83690; 83735; 84703; 85025; 94640; 96360; 97162-GP; 99285-25; A9270-GY; G0480; J3411; J3475; J3480; J3490; J7030; J7050; Q9967

== ENCOUNTER 2019-11-17 12:29 | Inpatient (IN) | payer MEDICAID ==
[2019-11-17] MEDS ORDERED: Albuterol 8 GM Inhaler INH PRN (15:16)
[2019-11-17] MEDS ORDERED: Mirtazapine 15 MG Tab PO PRN (15:16)
[2019-11-17] MEDS ORDERED: Meclizine 25 MG Tab PO PRN (15:50)
[2019-11-17] MEDS ORDERED: OMEGA PO SCH (17:00)
[2019-11-17] MEDS ORDERED: [UNRECOGNIZED DRUG - OTHER] PO SCH (17:00)
[2019-11-17] MEDS ORDERED: FISH OIL PO SCH (17:00)
[2019-11-17] MEDS ORDERED: EPA PO SCH (17:00)
[2019-11-17] MEDS ORDERED: DHA PO SCH (17:00)
[2019-11-17] MEDS: METHYLPREDNISOLONE 4 MG PO SCH ×2 (19:15→22:43)
--- NOTE | 2019-11-17 19:34 | HP ---
TIME: At approximately 3 p.m. HISTORY OF PRESENT ILLNESS: This is a 34-year-old female who was transferred from our facility to [place] on 11/07/2019, for continued care and lack of improvement. She was admitted to our facility on 11/01/2019, with vertigo, possible labyrinthitis, mental confusion, elevated bilirubin, elevated aspartate aminotransferase, hypomagnesemia, hypokalemia, and elevated ammonia as well. Her electrolyte imbalances did improve, however, she did not improve from a dizziness and mental confusion standpoint. She was transferred to [place] and had a working diagnosis of dizziness, hepatomegaly, and bilirubinemia, history of anxiety, depression, personality disorder, acute right-sided pneumonia which was treated with antibiotics, concern for dyspepsia, history of alcohol abuse, and low back pain. She was also found to have mononucleosis with positive Jose- Call virus titers. She does have splenomegaly from the same. She is here to continue physical therapy for deconditioning. She looks and feels much better than she did before. Nystagmus has improved quite a bit, however, she still continues to have some scleral jaundice. I do have labs ordered for tomorrow as well as a PT consultation. The patient reports she does not remember a lot from when she was here before and she does not remember a lot of the early days of when she was in [place]. She was even quite confused that she really was never told what was wrong with her. She was in [place] by herself quite a bit, so perhaps this information was presented to her and there was maybe a lack of understanding by the patient. . PHYSICAL EXAMINATION: VITAL SIGNS: Temperature is 96.8, pulse 89, respirations 16, blood pressure 112/71, O2 saturation on room air is 95%. Weight is 149.3 pounds with a height of 4 feet 11 inches. SKIN: Warm and dry to touch. CARDIAC: Reveals S1, S2 to be normal. Rate and rhythm are regular. No murmur, click, or gallop is auscultated. LUNGS: Have some diminished sounds throughout. ABDOMEN: Does have some distention with possible hepatosplenomegaly. EXTREMITIES: There is no pedal edema. IMPRESSION: 1. Deconditioning from extended hospital stay. She will be working with Physical Therapy while she is here. 2. Dizziness. This is improving somewhat. She has had PT for vestibular rehab in [place]. She has had an MRI of the brain which obtained which did not show any sign of acute cerebrovascular accident, and she was seen by Neurology as well. She was noted to have some horizontal nystagmus. She was suspected to have thiamine deficiency. However, her thiamine level was normal. She does continue on thiamin supplementation. 3. Hepatomegaly with bilirubinemia. We will repeat lab work in the morning. She did have an MRCP, which did not show any intra or extrahepatic biliary distention or obstruction. The gallbladder appeared to be normal. She did have a GI consult in [place]. 4. History of anxiety, depression, personality disorder. The patient had not been taking any medications for this at home and this was not continued in the hospital. We will continue to monitor on an out outpatient basis once she finishes her swing bed stay. 5. Acute right-sided pneumonia. This was treated with ceftriaxone, azithromycin, and metronidazole. Blood cultures were negative so far. Infectious Disease was consulted. Lumbar puncture was obtained to rule out aseptic meningitis. Meningitis was ruled out. 6. Concern for dyspepsia. She is on GI protection previously with famotidine as well as simethicone. This was switched to Protonix. 7. History of alcohol abuse. She has not had a drink in several weeks. 8. Low back pain. She was treated with muscle relaxers as well as tramadol. 9. She does have itching and has been treated with p.r.n. Benadryl. We will continue that in the hospital. 10.She did have positive Jose-Call virus titers signifying mononucleosis. She does have splenomegaly secondary to the same. We will continue to monitor. PT will be her primary treatment while in the hospital, and we will continue to follow up on swing bed rounds. /[id number]/MODL
[2019-11-17] MEDS: diphenhydrAMINE 25 MG Cap PO PRN (19:56)
[2019-11-17] MEDS ORDERED: TRAZODONE HCL 50 MG PO SCH (21:00)
[2019-11-17] MEDS ORDERED: Non-Formulary Medication 1 Each (Aripiprazole [Abilify] 20 MG) PO SCH (21:00)
[2019-11-17] MEDS ORDERED: Famotidine 20 MG Tab PO SCH (21:00)
[2019-11-17] MEDS: Formoterol/Mometasone 100-5 MCG 8.8 GM Inhaler IH SCH (21:46)
[2019-11-17] MEDS: Montelukast 10 MG Tab PO SCH (21:48)
[2019-11-18] MEDS: Formoterol/Mometasone 100-5 MCG 8.8 GM Inhaler IH SCH ×2 (07:29→20:39)
[2019-11-18] MEDS: METHYLPREDNISOLONE 4 MG PO SCH ×4 (07:40→20:39)
[2019-11-18] MEDS: Pantoprazole 40 MG Tab.CR PO SCH (07:43)
[2019-11-18 08:01] LABS: ANION GAP 16.3 mmol/L (5-15); CHLORIDE,CL 102 mmol/L (98-115); SODIUM,NA 136 mmol/L (136-145)
[2019-11-18] MEDS: Multivitamins with Minerals/Iron/Folic Acid/Lycopene Tab PO SCH (08:46)
[2019-11-18] MEDS: Thiamine 100 MG Tab PO SCH (08:47)
[2019-11-18] MEDS: Folic Acid 1 MG Tab PO SCH (08:47)
[2019-11-18] MEDS: Cyanocobalamin (Vitamin B12) 500 MCG Tab PO SCH (08:47)
[2019-11-18] MEDS ORDERED: Docusate Sodium 100 MG Cap PO SCH (09:00)
[2019-11-18] MEDS: Montelukast 10 MG Tab PO SCH (20:39)
[2019-11-18] MEDS: diphenhydrAMINE 25 MG Cap PO PRN (20:43)
[2019-11-18] MEDS: Melatonin 3 MG Tab PO PRN (22:40)
[2019-11-19] MEDS: Acetaminophen 325 MG Tab PO PRN (00:13)
[2019-11-19] MEDS: METHYLPREDNISOLONE 4 MG PO SCH ×3 (08:10→20:09)
[2019-11-19] MEDS: Cyanocobalamin (Vitamin B12) 500 MCG Tab PO SCH (08:10)
[2019-11-19] MEDS: Multivitamins with Minerals/Iron/Folic Acid/Lycopene Tab PO SCH (08:12)
[2019-11-19] MEDS: Thiamine 100 MG Tab PO SCH (08:12)
[2019-11-19] MEDS: Folic Acid 1 MG Tab PO SCH (08:12)
[2019-11-19] MEDS: Pantoprazole 40 MG Tab.CR PO SCH (08:12)
[2019-11-19] MEDS: Formoterol/Mometasone 100-5 MCG 8.8 GM Inhaler IH SCH ×2 (08:16→20:08)
[2019-11-19] MEDS ORDERED: LORazepam 0.5 MG Tab PO PRN (16:45)
[2019-11-19] MEDS: ARIPiprazole 5 MG Tab PO SCH (20:09)
[2019-11-19] MEDS: Montelukast 10 MG Tab PO SCH (20:09)
[2019-11-19] MEDS: diphenhydrAMINE 25 MG Cap PO PRN (20:39)
[2019-11-19] MEDS ORDERED: Mirtazapine 15 MG Tab PO SCH (21:00)
[2019-11-19] MEDS: Mirtazapine 15 MG Tab PO SCH (21:38)
[2019-11-19] MEDS: Melatonin 3 MG Tab PO PRN (21:38)
[2019-11-20] MEDS: METHYLPREDNISOLONE 4 MG PO SCH (06:39)
[2019-11-20] MEDS: Pantoprazole 40 MG Tab.CR PO SCH (06:39)
[2019-11-20] MEDS: Folic Acid 1 MG Tab PO SCH (08:15)
[2019-11-20] MEDS: ARIPiprazole 5 MG Tab PO SCH ×2 (08:15→21:19)
[2019-11-20] MEDS: Cyanocobalamin (Vitamin B12) 500 MCG Tab PO SCH (08:15)
[2019-11-20] MEDS: Thiamine 100 MG Tab PO SCH (08:15)
[2019-11-20] MEDS: Multivitamins with Minerals/Iron/Folic Acid/Lycopene Tab PO SCH (08:15)
[2019-11-20] MEDS: Formoterol/Mometasone 100-5 MCG 8.8 GM Inhaler IH SCH ×2 (08:17→21:23)
[2019-11-20] MEDS: Mirtazapine 15 MG Tab PO SCH (21:19)
[2019-11-20] MEDS: Montelukast 10 MG Tab PO SCH (21:20)
[2019-11-20] MEDS: diphenhydrAMINE 25 MG Cap PO PRN (21:23)
[2019-11-20] MEDS: Melatonin 3 MG Tab PO PRN (21:29)
[2019-11-21] MEDS: Pantoprazole 40 MG Tab.CR PO SCH (06:29)
[2019-11-21] MEDS: Acetaminophen 325 MG Tab PO PRN (06:29)
[2019-11-21] MEDS: METHYLPREDNISOLONE 4 MG PO SCH (07:58)
[2019-11-21] MEDS: Multivitamins with Minerals/Iron/Folic Acid/Lycopene Tab PO SCH (08:00)
[2019-11-21] MEDS: ARIPiprazole 5 MG Tab PO SCH ×2 (08:00→20:24)
[2019-11-21] MEDS: Thiamine 100 MG Tab PO SCH (08:00)
[2019-11-21] MEDS: Cyanocobalamin (Vitamin B12) 500 MCG Tab PO SCH (08:00)
[2019-11-21] MEDS: Folic Acid 1 MG Tab PO SCH (08:00)
[2019-11-21] MEDS: Formoterol/Mometasone 100-5 MCG 8.8 GM Inhaler IH SCH ×2 (08:01→20:24)
[2019-11-21] MEDS: Melatonin 3 MG Tab PO PRN (20:24)
[2019-11-21] MEDS: diphenhydrAMINE 25 MG Cap PO PRN (20:24)
[2019-11-21] MEDS: Mirtazapine 15 MG Tab PO SCH (20:25)
[2019-11-21] MEDS: Montelukast 10 MG Tab PO SCH (20:25)
[2019-11-22] MEDS ORDERED: Bisacodyl 5 MG Tab PO PRN (05:58)
[2019-11-22] MEDS: Pantoprazole 40 MG Tab.CR PO SCH (06:30)
[2019-11-22] MEDS: Formoterol/Mometasone 100-5 MCG 8.8 GM Inhaler IH SCH ×2 (08:28→20:28)
[2019-11-22] MEDS: Thiamine 100 MG Tab PO SCH (08:29)
[2019-11-22] MEDS: ARIPiprazole 5 MG Tab PO SCH ×2 (08:29→20:29)
[2019-11-22] MEDS: Cyanocobalamin (Vitamin B12) 500 MCG Tab PO SCH (08:29)
[2019-11-22] MEDS: Folic Acid 1 MG Tab PO SCH (08:29)
[2019-11-22] MEDS: Multivitamins with Minerals/Iron/Folic Acid/Lycopene Tab PO SCH (08:30)
[2019-11-22 14:55] LABS: ANION GAP 18.8 mmol/L (5-15); CHLORIDE,CL 102 mmol/L (98-115); SODIUM,NA 139 mmol/L (136-145)
[2019-11-22] MEDS: diphenhydrAMINE 25 MG Cap PO PRN (16:59)
[2019-11-22] MEDS ORDERED: Baclofen 10 MG Tab PO PRN (18:07)
[2019-11-22] MEDS: Montelukast 10 MG Tab PO SCH (20:28)
[2019-11-22] MEDS: Mirtazapine 15 MG Tab PO SCH (20:29)
[2019-11-22] MEDS: Acetaminophen 325 MG Tab PO PRN (20:29)
[2019-11-22] MEDS: Melatonin 3 MG Tab PO PRN (20:29)
[2019-11-23] MEDS: Pantoprazole 40 MG Tab.CR PO SCH (06:30)
[2019-11-23 06:32] VITALS: BP 106/63; PULSE 80
[2019-11-23] MEDS: Folic Acid 1 MG Tab PO SCH (08:07)
[2019-11-23] MEDS: Cyanocobalamin (Vitamin B12) 500 MCG Tab PO SCH (08:07)
[2019-11-23] MEDS: Thiamine 100 MG Tab PO SCH (08:07)
[2019-11-23] MEDS: ARIPiprazole 5 MG Tab PO SCH (08:07)
[2019-11-23] MEDS: Multivitamins with Minerals/Iron/Folic Acid/Lycopene Tab PO SCH (08:07)
[2019-11-23] MEDS: Formoterol/Mometasone 100-5 MCG 8.8 GM Inhaler IH SCH (08:08)
--- NOTE | 2019-11-24 11:44 | DISCH ---
HOSPITAL COURSE: This is a 34-year-old female who was admitted to [facility] on 11/[facility]/2019 after an extended hospitalization with diagnoses of deconditioning from extended hospital stay, dizziness, hepatomegaly with bilirubinemia, anxiety, depression, and personality disorder, history of alcohol abuse. She was hospitalized here and then transferred to [place] where she was positive for Jose-Call virus as well as acute right-sided pneumonia. She came here more for physical therapy and has reached improvement to the point where she is ready to go home. She still does have a little bit of nystagmus per her report. Physical Therapy has been working with her aggressively. The patient was started back on psychiatric medications including lorazepam as well as Abilify. The patient is anxious to go home. She is concerned about taking care of her children and is applying for childcare assistance. PHYSICAL EXAMINATION: VITAL SIGNS: Temperature 97.6, pulse 80, respirations 16, blood pressure 106/63, O2 saturation is 93%. SKIN: Warm and dry to touch. CARDIAC: S1, S2 to be normal. Rate and rhythm are regular. No murmur, click, or gallop is auscultated. LUNGS: Clear without rales, wheezes, or rhonchi. ABDOMEN: Soft, nontender. Bowel sounds present in all 4 quadrants. EXTREMITIES: There is no pedal edema. IMPRESSION: 1. Deconditioning. This has improved considerably and she is ready for discharge. Physical Therapy has worked with her aggressively. 2. Dizziness. This is not much as much of an issue for her, however, she does still complain of some nystagmus. She did have a brain MRI, which did not show any acute cerebrovascular accident. She was evaluated by Neurology while in [place]. She has had two separate PT interventions for the Catrachito maneuver. 3. Hepatomegaly with bilirubinemia. This has been stable. 4. History of anxiety, depression, and personality disorder. We did start her back on Abilify as well as lorazepam. 5. Right-sided pneumonia, this is resolved. She was treated in [place] with ceftriaxone, azithromycin, and metronidazole. 6. Concern for dyspepsia. She was on GI protection with famotidine. We did change her to Protonix. The stress of extended hospitalization as well as steroid use while hospitalized, which now have been discontinued, however, GI prophylaxis is important. 7. History of alcohol abuse. She has not had a drink in several weeks. She does not plan to resume drinking alcohol. 8. Jose-Call virus signifying [place]. She is feeling better from this standpoint. No complaints of fatigue. She will follow up with me in 1 week. Should she have any questions or concerns, she was urged to call the clinic or hospital. /[id number]/MODL
== END 2019-11-23 17:10 | disposition home or self-care (01) | DRG 149 ==
LOC: UNDOADMIN 15:07 → KA.MS 15:07
DX: R42 Dizziness and giddiness (principal); J18.9 Pneumonia, unspecified organism; F41.9 Anxiety disorder, unspecified; F32.9 Major depressive disorder, single episode, unspecified; F60.9 Personality disorder, unspecified; R16.0 Hepatomegaly, not elsewhere classified; E80.4 Gilbert syndrome; R10.13 Epigastric pain; R41.0 Disorientation, unspecified; B27.00 Gammaherpesviral mononucleosis without complication
CPT/HCPCS: 36415; 80053; 82140; 83735; 85025; 94640; 97110-GP; 97112-GP; 97162-GP; A9270-GY

== ENCOUNTER 2020-01-05 00:07 | Emergency (ER) | payer MEDICAID ==
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
[2020-01-05 00:47] VITALS: BP 124/64; PULSE 109
[2020-01-05 01:07] LABS: BARBITURATE SCREEN,URINE NEGATIVE (NEGATIVE); BENZODIAZEPINES SCREEN,URINE NEGATIVE (NEGATIVE); TCA SCREEN,URINE NEGATIVE (NEGATIVE); THC SCREEN,URINE 50 NG/ML NEGATIVE (NEGATIVE)
[2020-01-05 01:15] LABS: ANION GAP 23.2 mmol/L (5-15); CHLORIDE,CL 104 mmol/L (98-115); SODIUM,NA 149 mmol/L (136-145)
[2020-01-05] MEDS: ARIPiprazole 5 MG Tab PO ONE (02:26)
[2020-01-05] MEDS: Mirtazapine 15 MG Tab PO ONE (02:26)
== END 2020-01-05 02:28 ==
LOC: KA.ED 00:07
DX: F10.120 Alcohol abuse with intoxication, uncomplicated (principal); F91.8 Other conduct disorders; J45.909 Unspecified asthma, uncomplicated; K21.9 Gastro-esophageal reflux disease without esophagitis; Z91.011 Allergy to milk products; Z79.899 Other long term (current) drug therapy
CPT/HCPCS: 36415; 80053; 80305; 80307; 81001; 85025; 99284; A9270

== ENCOUNTER 2020-10-14 13:23 | Emergency (ER) | payer MEDICAID ==
[2020-10-14 13:29] VITALS: BP 121/86; PULSE 121
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
[2020-10-14 14:48] LABS: ANION GAP 21.4 mmol/L (5-15); CHLORIDE,CL 105 mmol/L (98-107); SODIUM,NA 140 mmol/L (136-145)
[2020-10-14 15:32] LABS: BARBITURATE SCREEN,URINE NEGATIVE (NEGATIVE); BENZODIAZEPINES SCREEN,URINE POSITIVE (NEGATIVE); TCA SCREEN,URINE NEGATIVE (NEGATIVE); THC SCREEN,URINE 50 NG/ML POSITIVE (NEGATIVE)
== END 2020-10-14 16:28 ==
LOC: KA.ED 13:23
DX: F31.9 Bipolar disorder, unspecified (principal); J45.909 Unspecified asthma, uncomplicated; E66.9 Obesity, unspecified; Z68.30 Body mass index [BMI] 30.0-30.9, adult; Z91.048 Other nonmedicinal substance allergy status; Z79.899 Other long term (current) drug therapy
CPT/HCPCS: 36415; 80048; 80305-QW; 80307; 84703; 85025; 99284; 99285

== ENCOUNTER 2020-12-29 03:47 | Emergency (ER) | payer MEDICAID ==
[2020-12-29 04:00] VITALS: BP 129/86; PULSE 106
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
[2020-12-29 05:20] LABS: BARBITURATE SCREEN,URINE NEGATIVE (NEGATIVE); BENZODIAZEPINES SCREEN,URINE NEGATIVE (NEGATIVE)
[2020-12-29 05:21] LABS: TCA SCREEN,URINE NEGATIVE (NEGATIVE); THC SCREEN,URINE 50 NG/ML NEGATIVE (NEGATIVE)
[2020-12-29 05:32] LABS: CHLORIDE,CL 103 mmol/L (98-107); SODIUM,NA 141 mmol/L (136-145)
== END 2020-12-29 06:30 | disposition home or self-care (01) ==
LOC: KA.ED 03:47
DX: R45.851 Suicidal ideations (principal); F41.9 Anxiety disorder, unspecified; F10.120 Alcohol abuse with intoxication, uncomplicated; J45.909 Unspecified asthma, uncomplicated; E66.9 Obesity, unspecified; Z68.27 Body mass index [BMI] 27.0-27.9, adult; Y90.7 Blood alcohol level of 200-239 mg/100 ml; Z72.0 Tobacco use; Z91.011 Allergy to milk products; Z79.899 Other long term (current) drug therapy
CPT/HCPCS: 80048; 80305-QW; 80307; 81003; 85025; 99284

== ENCOUNTER 2021-03-03 09:23 | Emergency (ER) | payer MEDICAID ==
[2021-03-03] MEDS: Ondansetron 4 MG/2 ML SDV IVPUSH ONE ×2 (09:47→11:07)
[2021-03-03] MEDS: Sodium Chloride 0.9% 1,000 ML IV ONE (09:51)
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
[2021-03-03 10:24] LABS: ANION GAP 21.7 mmol/L (5-15); CHLORIDE,CL 97 mmol/L (98-107); SODIUM,NA 139 mmol/L (136-145)
[2021-03-03 10:34] LABS: BARBITURATE SCREEN,URINE NEGATIVE (NEGATIVE); BENZODIAZEPINES SCREEN,URINE POSITIVE (NEGATIVE); THC SCREEN,URINE 50 NG/ML POSITIVE (NEGATIVE)
[2021-03-03 10:35] LABS: TCA SCREEN,URINE NEGATIVE (NEGATIVE)
[2021-03-03] MEDS: Ondansetron 4 MG/2 ML SDV ONE (11:04)
[2021-03-03] MEDS: LORazepam 2 MG/ML SDV ONE (11:04)
[2021-03-03] MEDS: LORazepam 2 MG/ML SDV IVPUSH ONE (11:05)
[2021-03-03] MEDS: Sodium Chloride 0.9% 10 ML Syringe FLUSH PRN (11:07)
[2021-03-03 11:36] VITALS: BP 125/68; PULSE 86
== END 2021-03-03 12:28 | disposition home or self-care (01) ==
LOC: KA.ED 09:23
DX: K29.20 Alcoholic gastritis without bleeding (principal); F31.9 Bipolar disorder, unspecified; F32.9 Major depressive disorder, single episode, unspecified; K21.9 Gastro-esophageal reflux disease without esophagitis; E66.9 Obesity, unspecified; Z79.899 Other long term (current) drug therapy; Z88.0 Allergy status to penicillin; Z91.011 Allergy to milk products; Z72.0 Tobacco use
CPT/HCPCS: 36415; 80053; 80305-QW; 80307; 81001; 81025; 83690; 85025; 96374; 96375; 96376; 99284; 99284-25; J2060; J2405; J7030

== ENCOUNTER 2021-04-17 01:09 | Emergency (ER) | payer MEDICAID ==
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
[2021-04-17 02:06] VITALS: BP 128/83; PULSE 99
[2021-04-17 02:14] LABS: BARBITURATE SCREEN,URINE NEGATIVE (NEGATIVE); BENZODIAZEPINES SCREEN,URINE NEGATIVE (NEGATIVE); TCA SCREEN,URINE NEGATIVE (NEGATIVE); THC SCREEN,URINE 50 NG/ML NEGATIVE (NEGATIVE)
[2021-04-17 02:21] LABS: ANION GAP 22.1 mmol/L (5-15); CHLORIDE,CL 98 mmol/L (98-107); SODIUM,NA 138 mmol/L (136-145)
== END 2021-04-17 03:14 ==
LOC: KA.ED 01:09
DX: F10.129 Alcohol abuse with intoxication, unspecified (principal); F32.9 Major depressive disorder, single episode, unspecified; Y90.8 Blood alcohol level of 240 mg/100 ml or more; E66.9 Obesity, unspecified; Z68.30 Body mass index [BMI] 30.0-30.9, adult; Z88.0 Allergy status to penicillin; Z91.011 Allergy to milk products
CPT/HCPCS: 36415; 80053; 80143; 80305-QW; 80307; 81003; 84703; 85025; 93005; 99284; 99285-25

== ENCOUNTER 2021-12-10 23:33 | Emergency (ER) | payer MEDICAID ==
[2021-12-10 23:53] VITALS: BP 141/92; PULSE 105
== END 2021-12-11 01:10 | disposition home or self-care (01) ==
LOC: KA.ED 23:33
DX: F32.A Depression, unspecified (principal); F10.10 Alcohol abuse, uncomplicated; K21.9 Gastro-esophageal reflux disease without esophagitis; E11.9 Type 2 diabetes mellitus without complications; E66.9 Obesity, unspecified; Z68.29 Body mass index [BMI] 29.0-29.9, adult; Z88.0 Allergy status to penicillin; Z91.011 Allergy to milk products; Z79.899 Other long term (current) drug therapy; Z72.0 Tobacco use
CPT/HCPCS: 99283; 99284

== ENCOUNTER 2022-03-09 17:10 | Emergency (ER) | payer MEDICAID ==
[2022-03-09] MEDS: Ondansetron 4 MG/2 ML SDV IVPUSH ONE (17:41)
[2022-03-09] MEDS: Sodium Chloride 0.9% 1,000 ML IV ONE (17:42)
[2022-03-09] MEDS: Sodium Chloride 0.9% 10 ML Syringe FLUSH PRN (17:42)
[2022-03-09 17:59] LABS: ANION GAP 21.5 mmol/L (5-15); CHLORIDE,CL 100 mmol/L (98-107); SODIUM,NA 140 mmol/L (136-145)
[2022-03-09 18:02] LABS: ESTIMATED GFR > 60 mL/min
[2022-03-09 18:11] LABS: BARBITURATE SCREEN,URINE NEGATIVE (NEGATIVE); BENZODIAZEPINES SCREEN,URINE POSITIVE (NEGATIVE); TCA SCREEN,URINE NEGATIVE (NEGATIVE); THC SCREEN,URINE 50 NG/ML POSITIVE (NEGATIVE)
[2022-03-09 19:02] VITALS: BP 113/65; PULSE 83
== END 2022-03-09 18:58 | disposition home or self-care (01) ==
LOC: KA.ED 17:10
DX: F10.929 Alcohol use, unspecified with intoxication, unspecified (principal); F12.188 Cannabis abuse with other cannabis-induced disorder; E87.6 Hypokalemia; R82.5 Elevated urine levels of drugs, medicaments and biological substances; J45.909 Unspecified asthma, uncomplicated; E11.9 Type 2 diabetes mellitus without complications; E66.9 Obesity, unspecified; Z68.32 Body mass index [BMI] 32.0-32.9, adult; Z79.899 Other long term (current) drug therapy; Z79.84 Long term (current) use of oral hypoglycemic drugs; Z88.0 Allergy status to penicillin; Z91.011 Allergy to milk products
CPT/HCPCS: 36415; 71045; 80053; 80305-QW; 80307; 81001; 82150; 83690; 83735; 84484; 85025; 96361; 96374; 99284; 99284-25; J2405; J3490; J7030

== ENCOUNTER 2022-03-17 09:00 | Emergency (ER) | payer MEDICAID ==
[2022-03-17] MEDS: Sodium Chloride 0.9% 1,000 ML IV ONE (09:28)
[2022-03-17] MEDS: Ondansetron 4 MG/2 ML SDV IVPUSH ONE (09:29)
[2022-03-17] MEDS: Pantoprazole 40 MG Vial IVPUSH ONE (09:29)
[2022-03-17] MEDS: Sodium Chloride 0.9% 10 ML Syringe FLUSH PRN (09:29)
[2022-03-17 09:49] LABS: ANION GAP 28.7 mmol/L (5-15); CHLORIDE,CL 93 mmol/L (98-107); SODIUM,NA 136 mmol/L (136-145)
[2022-03-17 09:51] LABS: ESTIMATED GFR > 60 mL/min
[2022-03-17 09:53] LABS: BARBITURATE SCREEN,URINE NEGATIVE (NEGATIVE); BENZODIAZEPINES SCREEN,URINE POSITIVE (NEGATIVE); TCA SCREEN,URINE NEGATIVE (NEGATIVE); THC SCREEN,URINE 50 NG/ML POSITIVE (NEGATIVE)
[2022-03-17] MEDS: Promethazine 25 MG in Sodium Chloride 0.9% 100 ML IV PRN (10:35)
[2022-03-17] MEDS: NS + KCl 20mEq/L 1,000 ML IV SCH (11:10)
[2022-03-17 11:27] VITALS: BP 115/66; PULSE 104
== END 2022-03-17 12:06 | disposition home or self-care (01) ==
LOC: KA.ED 09:00
DX: K57.30 Diverticulosis of large intestine without perforation or abscess without bleeding (principal); K76.0 Fatty (change of) liver, not elsewhere classified; R11.10 Vomiting, unspecified; F32.A Depression, unspecified; R94.5 Abnormal results of liver function studies; R31.0 Gross hematuria; K21.9 Gastro-esophageal reflux disease without esophagitis; E11.9 Type 2 diabetes mellitus without complications; E66.9 Obesity, unspecified; Z88.0 Allergy status to penicillin; Z91.011 Allergy to milk products; Z79.84 Long term (current) use of oral hypoglycemic drugs; Z68.31 Body mass index [BMI] 31.0-31.9, adult
CPT/HCPCS: 36415; 71046; 74177; 80053; 80305-QW; 80307; 81001; 82140; 82150; 83605; 83690; 83735; 85025; 96361; 96365; 96367; 96375; 99284; 99284-25; C9113; J2405; J2550; J3480; J3490; J7030

== ENCOUNTER 2022-03-30 09:30 | Emergency (ER) | payer MEDICAID ==
[2022-03-30] MEDS ORDERED: Sodium Chloride 0.9% 10 ML Syringe FLUSH PRN (09:35)
[2022-03-30] MEDS: Ondansetron 4 MG/2 ML SDV IVPUSH ONE (10:11)
[2022-03-30] MEDS: MVI, Adult with Vitamin K 10 ML, Folic Acid 1 MG, Thiamine 100 MG in D5 1/2 NS w/ 20 mE... IV ONE ×4 (10:12)
[2022-03-30] MEDS: Sodium Chloride 0.9% 1,000 ML IV ONE (10:12)
[2022-03-30 10:19] LABS: ANION GAP 26.9 mmol/L (5-15)
[2022-03-30] MEDS: NS with KCl 40mEq 1,000 ML IV SCH (11:09)
[2022-03-30 11:45] VITALS: BP 117/76; PULSE 103
[2022-03-30 12:28] LABS: TCA SCREEN,URINE NEGATIVE (NEGATIVE); THC SCREEN,URINE 50 NG/ML POSITIVE (NEGATIVE)
[2022-03-30 12:29] LABS: BARBITURATE SCREEN,URINE NEGATIVE (NEGATIVE); BENZODIAZEPINES SCREEN,URINE NEGATIVE (NEGATIVE)
== END 2022-03-30 12:20 ==
LOC: KA.ED 09:30
DX: K85.90 Acute pancreatitis without necrosis or infection, unspecified (principal); K70.30 Alcoholic cirrhosis of liver without ascites; F10.10 Alcohol abuse, uncomplicated; E87.1 Hypo-osmolality and hyponatremia; E87.6 Hypokalemia; E11.9 Type 2 diabetes mellitus without complications; K21.9 Gastro-esophageal reflux disease without esophagitis; E66.9 Obesity, unspecified; Z68.30 Body mass index [BMI] 30.0-30.9, adult; Z88.0 Allergy status to penicillin; Z91.011 Allergy to milk products; Z79.84 Long term (current) use of oral hypoglycemic drugs; Z20.822 Contact with and (suspected) exposure to COVID-19
CPT/HCPCS: 36415; 80053; 80305-QW; 80307; 81001; 82140; 83690; 83735; 84478; 85025; 96365; 96367; 96375; 99284; 99285-25; J2405; J3411; J3480; J3490; U0002

== ENCOUNTER 2022-05-27 01:04 | Emergency (ER) | payer MEDICAID ==
[2022-05-27] MEDS: Naloxone 0.4 MG/ML Syringe IVPUSH ONE (01:15)
[2022-05-27] MEDS ORDERED: Sodium Chloride 0.9% 10 ML Syringe FLUSH PRN (01:17)
[2022-05-27] MEDS: Naloxone 0.4 MG/ML SDV ONE (01:42)
[2022-05-27] MEDS: Sodium Chloride 0.9% 1,000 ML IV ONE (01:44)
[2022-05-27 01:54] LABS: CHLORIDE,CL 109 mmol/L (98-107); SODIUM,NA 145 mmol/L (136-145)
[2022-05-27 02:00] LABS: ESTIMATED GFR 129 mL/min (>=60)
[2022-05-27 02:02] LABS: ACETAMINOPHEN < 0.0 ug/mL (10.0-30.0)
[2022-05-27 02:23] LABS: BARBITURATE SCREEN,URINE NEGATIVE (NEGATIVE); BENZODIAZEPINES SCREEN,URINE NEGATIVE (NEGATIVE)
[2022-05-27 02:24] LABS: TCA SCREEN,URINE NEGATIVE (NEGATIVE); THC SCREEN,URINE 50 NG/ML NEGATIVE (NEGATIVE)
[2022-05-27] MEDS: Ondansetron 4 MG Tab.DIS PO ONE (03:23)
[2022-05-27 03:29] VITALS: BP 110/70; PULSE 92
[2022-05-27] MEDS: Potassium Chloride 20 MEQ Tab.ER PO ONE (03:40)
== END 2022-05-27 03:00 | disposition home or self-care (01) ==
LOC: KA.ED 01:04
DX: K86.0 Alcohol-induced chronic pancreatitis (principal); F10.929 Alcohol use, unspecified with intoxication, unspecified; E87.6 Hypokalemia; J45.909 Unspecified asthma, uncomplicated; E11.9 Type 2 diabetes mellitus without complications; E66.9 Obesity, unspecified; Z68.30 Body mass index [BMI] 30.0-30.9, adult; Z88.0 Allergy status to penicillin; Z91.011 Allergy to milk products; Z79.899 Other long term (current) drug therapy; Z79.84 Long term (current) use of oral hypoglycemic drugs
CPT/HCPCS: 36415; 70450; 71045; 80053; 80143; 80305-QW; 80307; 81001; 81025; 82140; 83605; 83690; 84484; 85025; 93005; 93010; 96361; 96374; 99284; 99285-25; J2310; J7030

== ENCOUNTER 2022-06-02 09:44 | Emergency (ER) | payer MEDICAID ==
[2022-06-02] MEDS: Sodium Chloride 0.9% 1,000 ML IV ONE ×3 (09:59→12:28)
[2022-06-02] MEDS: Ondansetron 4 MG/2 ML SDV IVPUSH ONE (10:07)
[2022-06-02] MEDS: Morphine 2 MG/ML SYRINGE IVPUSH ONE (10:12)
[2022-06-02 10:32] LABS: ANION GAP 15.7 mmol/L (5-15); CHLORIDE,CL 96 mmol/L (98-107); SODIUM,NA 133 mmol/L (136-145)
[2022-06-02 10:35] VITALS: BP 118/76; PULSE 101
[2022-06-02 10:50] LABS: ESTIMATED GFR 117 mL/min (>=60)
[2022-06-02] MEDS: Prochlorperazine 10 MG in Sodium Chloride 0.9% 50 ML IV ONE (11:00)
[2022-06-02 11:08] LABS: BARBITURATE SCREEN,URINE NEGATIVE (NEGATIVE)
[2022-06-02 11:09] LABS: BENZODIAZEPINES SCREEN,URINE NEGATIVE (NEGATIVE); TCA SCREEN,URINE NEGATIVE (NEGATIVE); THC SCREEN,URINE 50 NG/ML POSITIVE (NEGATIVE)
[2022-06-02] MEDS: Potassium Chloride 10 MEQ Tab.ER PO ONE (11:46)
[2022-06-02] MEDS: Potassium Chloride 20 MEQ in Premix Bag 1 BAG IV ONE (13:38)
[2022-06-02] MEDS ORDERED: Potassium Chloride 10 MEQ Tab.ER ONE (16:31)
[2022-06-02] MEDS: Potassium Chloride 10 MEQ Tab.ER PO SCH (16:34)
== END 2022-06-02 16:42 | disposition home or self-care (01) ==
LOC: KA.ED 09:44
DX: K70.30 Alcoholic cirrhosis of liver without ascites (principal); E87.6 Hypokalemia; J45.909 Unspecified asthma, uncomplicated; F10.29 Alcohol dependence with unspecified alcohol-induced disorder; I25.2 Old myocardial infarction; E11.9 Type 2 diabetes mellitus without complications; F17.210 Nicotine dependence, cigarettes, uncomplicated; E66.9 Obesity, unspecified; Z68.30 Body mass index [BMI] 30.0-30.9, adult; Z88.1 Allergy status to other antibiotic agents; Z91.011 Allergy to milk products; Z79.899 Other long term (current) drug therapy
CPT/HCPCS: 36415; 80053; 80305-QW; 80307; 81001; 81025; 82150; 83605; 83690; 84132; 84484; 85025; 93010; 96361; 96365; 96366; 96367; 96375; 99284; 99284-25; A9270-GY; J0780; J2270; J2405; J3480; J7030

== ENCOUNTER 2022-06-07 17:55 | Emergency (ER) | payer MEDICAID ==
[2022-06-07] MEDS ORDERED: Naloxone 0.4 MG/ML SDV ONE (18:02)
[2022-06-07] MEDS ORDERED: Naloxone 0.4 MG/ML SDV IVPUSH ONE (18:03)
[2022-06-07] MEDS ORDERED: Sodium Chloride 0.9% 10 ML Syringe FLUSH PRN (18:04)
[2022-06-07] MEDS ORDERED: Sodium Chloride 0.9% 1,000 ML IV ONE (18:10)
[2022-06-07] MEDS ORDERED: Ondansetron 4 MG/2 ML SDV IVPUSH ONE (18:22)
[2022-06-07 18:35] LABS: ANION GAP 13.8 mmol/L (5-15); CHLORIDE,CL 104 mmol/L (98-107); SODIUM,NA 140 mmol/L (136-145)
[2022-06-07 18:38] LABS: ESTIMATED GFR 124 mL/min (>=60)
[2022-06-07 18:40] LABS: ACETAMINOPHEN < 0.0 ug/mL (10.0-30.0)
[2022-06-07] MEDS: NS + KCl 20mEq/L 1,000 ML IV SCH (19:30)
[2022-06-07 20:37] LABS: BARBITURATE SCREEN,URINE NEGATIVE (NEGATIVE); BENZODIAZEPINES SCREEN,URINE NEGATIVE (NEGATIVE); TCA SCREEN,URINE NEGATIVE (NEGATIVE); THC SCREEN,URINE 50 NG/ML NEGATIVE (NEGATIVE)
[2022-06-07] MEDS ORDERED: Thiamine 100 MG in Sodium Chloride 0.9% 100 ML IV ONE (21:29)
[2022-06-07] MEDS ORDERED: Folic Acid 50 MG/10 ML MDV IV SCH (21:30)
[2022-06-07] MEDS ORDERED: NS + KCl 20mEq/L 1,000 ML IV SCH (22:00)
[2022-06-08] MEDS: NS + KCl 20mEq/L 1,000 ML IV SCH (01:57)
[2022-06-08] MEDS ORDERED: Ondansetron 4 MG/2 ML SDV IVPUSH ONE ×2 (02:32→04:39)
[2022-06-08] MEDS ORDERED: Promethazine 25 MG in Sodium Chloride 0.9% 100 ML IV ONE (04:41)
[2022-06-08 07:52] LABS: ANION GAP 10.7 mmol/L (5-15)
[2022-06-08 08:10] VITALS: BP 120/74; PULSE 87
== END 2022-06-08 08:45 | disposition home or self-care (01) ==
LOC: KA.ED 17:55
DX: F10.229 Alcohol dependence with intoxication, unspecified (principal); F32.A Depression, unspecified; Y90.8 Blood alcohol level of 240 mg/100 ml or more; E11.9 Type 2 diabetes mellitus without complications; E66.9 Obesity, unspecified; Z79.899 Other long term (current) drug therapy; Z88.0 Allergy status to penicillin; Z91.011 Allergy to milk products; Z20.822 Contact with and (suspected) exposure to COVID-19
CPT/HCPCS: 36415; 51702; 71045; 80053; 80143; 80305-QW; 80307; 81003; 83605; 84703; 85025; 87040; 93005; 93010; 96361; 96365; 96366; 96368; 96375; 96376; 99284; 99285-25; J2310; J2405; J2550; J3411; J3480; J3490; J7030; Q3014; U0002

== ENCOUNTER 2022-06-18 21:50 | Emergency (ER) | payer MEDICAID ==
[2022-06-18] MEDS ORDERED: MVI, Adult with Vitamin K 10 ML, Folic Acid 1 MG, Thiamine 100 MG in D5 1/2 NS w/ 20 mE... IV ONE ×4 (22:03)
[2022-06-18] MEDS ORDERED: Sodium Chloride 0.9% 10 ML Syringe FLUSH PRN (22:03)
[2022-06-18 22:27] LABS: ACETAMINOPHEN 1.2 ug/mL (10.0-30.0); ANION GAP 15.9 mmol/L (5-15); CHLORIDE,CL 106 mmol/L (98-107); SODIUM,NA 143 mmol/L (136-145)
[2022-06-18 22:33] LABS: ESTIMATED GFR 128 mL/min (>=60)
[2022-06-18 22:50] LABS: BARBITURATE SCREEN,URINE NEGATIVE (NEGATIVE); BENZODIAZEPINES SCREEN,URINE NEGATIVE (NEGATIVE)
[2022-06-18 22:51] LABS: TCA SCREEN,URINE NEGATIVE (NEGATIVE); THC SCREEN,URINE 50 NG/ML NEGATIVE (NEGATIVE)
[2022-06-19 03:30] VITALS: BP 116/72; PULSE 93
== END 2022-06-18 23:30 | disposition home or self-care (01) ==
LOC: KA.ED 21:50
DX: F10.129 Alcohol abuse with intoxication, unspecified (principal); E78.00 Pure hypercholesterolemia, unspecified; E11.9 Type 2 diabetes mellitus without complications; E66.9 Obesity, unspecified; Z68.30 Body mass index [BMI] 30.0-30.9, adult; Z88.0 Allergy status to penicillin; Z91.011 Allergy to milk products; Y90.8 Blood alcohol level of 240 mg/100 ml or more
CPT/HCPCS: 36415; 80053; 80143; 80305-QW; 80307; 81001; 83690; 85025; 99284

== ENCOUNTER 2022-07-04 19:25 | Observation (INO) | payer MEDICAID ==
[2022-07-04] MEDS ORDERED: Sodium Chloride 0.9% 1,000 ML IV ONE ×2 (19:40→21:10)
[2022-07-04] MEDS ORDERED: Sodium Chloride 0.9% 1,000 ML ONE (19:43)
[2022-07-04 20:44] LABS: ANION GAP 15.5 mmol/L (5-15); CHLORIDE,CL 105 mmol/L (98-107); SODIUM,NA 143 mmol/L (136-145)
[2022-07-04 20:50] LABS: ACETAMINOPHEN < 10.0 ug/mL (10.0-30.0); ESTIMATED GFR 130 mL/min (>=60)
[2022-07-04] MEDS: D5 1/2 NS w/ 20 mEq/L KCl 1,000 ML IV SCH (23:17)
[2022-07-04 23:59] LABS: BARBITURATE SCREEN,URINE NEGATIVE (NEGATIVE); BENZODIAZEPINES SCREEN,URINE POSITIVE (NEGATIVE)
[2022-07-05] LABS: TCA SCREEN,URINE NEGATIVE (NEGATIVE); THC SCREEN,URINE 50 NG/ML NEGATIVE (NEGATIVE)
[2022-07-05] MEDS: D5 1/2 NS w/ 20 mEq/L KCl 1,000 ML IV SCH ×2 (09:15→19:12)
[2022-07-05 10:59] LABS: ANION GAP 14.2 mmol/L (5-15)
[2022-07-05] MEDS ORDERED: Potassium Bicarbonate 25 MEQ Tab.EFF PO ONE ×2 (11:45→17:30)
[2022-07-05] MEDS: Folic Acid 1 MG Tab PO SCH (12:38)
[2022-07-05] MEDS ORDERED: Thiamine 200 MG/2 ML MDV IM ONE (17:07)
[2022-07-05] MEDS: guaiFENesin/Dextromethorphan 100-10 MG/5 ML Soln 5 ML Cup PO PRN ×2 (17:34→22:08)
[2022-07-05] MEDS ORDERED: Benzonatate 100 MG Cap PO PRN (23:44)
[2022-07-05] MEDS: Albuterol/Ipratropium 3.0-0.5 MG/3 ML Neb Soln NEB PRN (23:54)
[2022-07-06] MEDS: guaiFENesin/Dextromethorphan 100-10 MG/5 ML Soln 5 ML Cup PO PRN (02:54)
[2022-07-06] MEDS: Albuterol/Ipratropium 3.0-0.5 MG/3 ML Neb Soln NEB PRN (04:56)
[2022-07-06] MEDS: D5 1/2 NS w/ 20 mEq/L KCl 1,000 ML IV SCH (04:59)
[2022-07-06 06:09] VITALS: BP 113/58; PULSE 97
[2022-07-06 07:40] LABS: ANION GAP 12.6 mmol/L (5-15)
[2022-07-06] MEDS: Folic Acid 1 MG Tab PO SCH (08:07)
[2022-07-06] MEDS ORDERED: Potassium Chloride 10 MEQ Tab.ER PO ONE (17:07)
== END 2022-07-06 11:30 | disposition home or self-care (01) ==
LOC: KA.ED 19:25 → KA.MS 22:55 → UNDOADMOB 23:00 → KA.MS 23:00
PROVIDERS: ADMIT Internal Medicine; ATTEND Internal Medicine
DX: T42.4X2A Poisoning by benzodiazepines, intentional self-harm, initial encounter (principal); F10.10 Alcohol abuse, uncomplicated; E87.8 Other disorders of electrolyte and fluid balance, not elsewhere classified; Z20.822 Contact with and (suspected) exposure to COVID-19; E66.9 Obesity, unspecified; Z68.30 Body mass index [BMI] 30.0-30.9, adult
CPT/HCPCS: 36415; 71046; 80048; 80053; 80143; 80305-QW; 80307; 81001; 85025; 94640; 96360; 96361; 96372; 99285-25; A9270-GY; G0378; J3411; J3480; J7030; J7620-GY; U0002

== ENCOUNTER 2022-07-21 23:08 | Emergency (ER) | payer MEDICAID ==
[~2022-07-21 23:08] MED LIST: methylPREDNISolone Sodium Succinate 125 MG/2 ML SDV IM ONE
[2022-07-21] MEDS ORDERED: Albuterol/Ipratropium 3.0-0.5 MG/3 ML Neb Soln INH ONE ×2 (23:28)
== END 2022-07-22 00:28 | disposition home or self-care (01) ==
LOC: KA.ED 23:08
DX: J20.9 Acute bronchitis, unspecified (principal); H66.92 Otitis media, unspecified, left ear; Z88.0 Allergy status to penicillin; Z88.1 Allergy status to other antibiotic agents
CPT/HCPCS: 71046; 96372; 99283; A9270; J2930; J7620-GY

== ENCOUNTER 2022-09-13 23:18 | Emergency (ER) | payer MEDICAID ==
[2022-09-14 03:57] VITALS: BP 113/75; PULSE 97
== END 2022-09-14 00:06 | disposition home or self-care (01) ==
LOC: KA.ED 23:18
DX: F41.0 Panic disorder [episodic paroxysmal anxiety] (principal); F43.9 Reaction to severe stress, unspecified; I25.2 Old myocardial infarction; J45.909 Unspecified asthma, uncomplicated; E11.9 Type 2 diabetes mellitus without complications; Z88.0 Allergy status to penicillin; Z91.011 Allergy to milk products; Z79.899 Other long term (current) drug therapy
CPT/HCPCS: 99284

== ENCOUNTER 2022-10-18 10:40 | Emergency (ER) | payer MEDICAID ==
[2022-10-18] MEDS: Aspirin 81 MG Tab.Chew PO ONE (11:00)
[2022-10-18] MEDS: Sodium Chloride 0.9% 1,000 ML IV ONE (11:10)
[2022-10-18] MEDS ORDERED: Sodium Chloride 0.9% 10 ML Syringe FLUSH PRN (11:21)
[2022-10-18 11:28] LABS: ANION GAP 14.9 mmol/L (5-15)
[2022-10-18] MEDS: Aspirin 81 MG Tab.Chew ONE (11:46)
[2022-10-18] MEDS: Sodium Chloride 0.9% 1,000 ML ONE (11:46)
[2022-10-18 11:57] VITALS: BP 106/60; PULSE 84
== END 2022-10-18 12:17 | disposition home or self-care (01) ==
LOC: KA.ED 10:40
DX: S43.102A Unspecified dislocation of left acromioclavicular joint, initial encounter (principal); F10.220 Alcohol dependence with intoxication, uncomplicated; I25.2 Old myocardial infarction; K21.9 Gastro-esophageal reflux disease without esophagitis; E11.9 Type 2 diabetes mellitus without complications; E66.9 Obesity, unspecified; Z68.31 Body mass index [BMI] 31.0-31.9, adult; Z88.0 Allergy status to penicillin; Z91.011 Allergy to milk products; Y90.8 Blood alcohol level of 240 mg/100 ml or more
CPT/HCPCS: 71046; 80053; 80307; 84484; 85025; 93010; 96360; 99284; 99285-25; A9270-GY; J7030

== ENCOUNTER 2023-05-08 17:53 | Emergency (ER) | payer MEDICAID ==
[2023-05-08 18:22] LABS: BASOPHILS ABSOLUTE AUTO 0.05 10^3/uL (0.00-0.10); BASOPHILS PERCENT AUTO 0.5 % (0.0-1.0); EOSINOPHILS PERCENT AUTO 4.3 % (1.0-3.0); HEMATOCRIT 37.5 % (37.0-47.0); HEMOGLOBIN 12.2 g/dL (12.0-16.0); IMMATURE GRAN ABSOLUTE AUTO 0.02 10^3/uL (0.00-0.50); IMMATURE GRAN PERCENT AUTO 0.2 % (0.0-5.0); LYMPHOCYTES PERCENT AUTO 37.3 % (20.0-40.0); MEAN CORPUSCULAR HEMOGLOBIN 27.8 pg (27.0-31.0); MEAN CORPUSCULAR HGB CONC 32.5 g/dL (32.0-36.0); MEAN CORPUSCULAR VOLUME 85.4 fL (82.0-92.0); MEAN PLATELET VOLUME 9.2 fL (7.4-10.4); MONOCYTES ABSOLUTE AUTO 0.37 10^3/uL (0.10-0.80); MONOCYTES PERCENT AUTO 3.9 % (2.0-8.0); NEUTROPHILS ABSOLUTE AUTO 5.04 10^3/uL (2.50-7.00); NEUTROPHILS PERCENT AUTO 53.8 % (50.0-70.0); PLATELET COUNT,PLT 190 10^3/uL (150-400); RED BLOOD CELL COUNT 4.39 10^6/uL (3.80-5.50); RED CELL DISTRIBUTION WIDTH 14.1 % (11.5-14.5); WHITE BLOOD CELL COUNT,WBC 9.38 10^3/uL (5.00-10.00)
[2023-05-08 18:32] LABS: APPEARANCE,URINE CLEAR (CLEAR); BILIRUBIN,URINE NEGATIVE (NEGATIVE); COLOR,URINE YELLOW (YELLOW); GLUCOSE,URINE NEGATIVE (NEGATIVE); KETONES,URINE NEGATIVE (NEGATIVE); LEUKOCYTE ESTERASE,URINE NEGATIVE (NEGATIVE); NITRITE,URINE NEGATIVE (NEGATIVE); OCCULT BLOOD,URINE NEGATIVE (NEGATIVE); PH,URINE 5.5 (5.0-9.0); PROTEIN,URINE NEGATIVE (NEGATIVE); UROBILINOGEN,URINE 0.2 E.U./dL (0.2-1.0)
[2023-05-08 18:45] LABS: ALBUMIN 3.74 g/dL (3.40-5.00); ANION GAP 15.7 mmol/L (5-15); BILIRUBIN TOTAL 0.3 mg/dL (0.2-1.0); CALCIUM 8.6 mg/dL (8.7-10.3); CARBON DIOXIDE,CO2 25.1 mmol/L (21.0-32.0); CREATININE 0.67 mg/dL (0.51-1.17); EST CRCL DRUG DOSING (CG) 80.97 mL/min; POTASSIUM,K 3.8 mmol/L (3.5-5.1); PROTEIN TOTAL,TP 8.1 g/dL (6.4-8.2); TSH ULTRASENSITIVE 1.182 uIU/mL (0.340-4.820)
[2023-05-08 19:22] VITALS: BP 125/75; PULSE 68
== END 2023-05-08 19:24 | disposition home or self-care (01) ==
LOC: KA.ED 17:53
DX: R53.83 Other fatigue (principal); E78.00 Pure hypercholesterolemia, unspecified; I25.2 Old myocardial infarction; J45.909 Unspecified asthma, uncomplicated; E11.9 Type 2 diabetes mellitus without complications; E66.9 Obesity, unspecified; Z68.28 Body mass index [BMI] 28.0-28.9, adult; Z79.899 Other long term (current) drug therapy; Z88.1 Allergy status to other antibiotic agents; Z88.8 Allergy status to other drugs, medicaments and biological substances
CPT/HCPCS: 36415; 80053; 81003; 83690; 84443; 85025; 99283; 99284

== ENCOUNTER 2023-05-17 00:24 | Emergency (ER) | payer MEDICAID ==
[2023-05-17] MEDS ORDERED: Aspirin 81 MG Tab.Chew PO ONE (00:45)
[2023-05-17] MEDS ORDERED: Sodium Chloride 0.9% 10 ML Syringe FLUSH PRN (00:45)
[2023-05-17] MEDS ORDERED: Aspirin 81 MG Tab.Chew ONE (00:49)
[2023-05-17 01:13] LABS: BASOPHILS ABSOLUTE AUTO 0.04 10^3/uL (0.00-0.10); BASOPHILS PERCENT AUTO 0.4 % (0.0-1.0); EOSINOPHILS ABSOLUTE AUTO 0.42 10^3/uL (0.10-0.30); EOSINOPHILS PERCENT AUTO 4.4 % (1.0-3.0); HEMATOCRIT 33.9 % (37.0-47.0); HEMOGLOBIN 11.1 g/dL (12.0-16.0); IMMATURE GRAN ABSOLUTE AUTO 0.01 10^3/uL (0.00-0.50); IMMATURE GRAN PERCENT AUTO 0.1 % (0.0-5.0); LYMPHOCYTES ABSOLUTE AUTO 3.48 10^3/uL (1.00-4.00); LYMPHOCYTES PERCENT AUTO 36.3 % (20.0-40.0); MEAN CORPUSCULAR HEMOGLOBIN 28.1 pg (27.0-31.0); MEAN CORPUSCULAR HGB CONC 32.7 g/dL (32.0-36.0); MEAN CORPUSCULAR VOLUME 85.8 fL (82.0-92.0); MEAN PLATELET VOLUME 9.4 fL (7.4-10.4); MONOCYTES ABSOLUTE AUTO 0.42 10^3/uL (0.10-0.80); MONOCYTES PERCENT AUTO 4.4 % (2.0-8.0); NEUTROPHILS ABSOLUTE AUTO 5.21 10^3/uL (2.50-7.00); NEUTROPHILS PERCENT AUTO 54.4 % (50.0-70.0); PLATELET COUNT,PLT 166 10^3/uL (150-400); RED BLOOD CELL COUNT 3.95 10^6/uL (3.80-5.50); RED CELL DISTRIBUTION WIDTH 14.3 % (11.5-14.5); WHITE BLOOD CELL COUNT,WBC 9.58 10^3/uL (5.00-10.00)
[2023-05-17 01:31] LABS: ANION GAP 13.2 mmol/L (5-15); BLOOD UREA NITROGEN,BUN 8 mg/dL (7-18); CALCIUM 8.3 mg/dL (8.7-10.3); CARBON DIOXIDE,CO2 26.1 mmol/L (21.0-32.0); CHLORIDE,CL 100 mmol/L (98-107); CREATININE 0.57 mg/dL (0.51-1.17); GLUCOSE RANDOM 93 mg/dL (70-140); POTASSIUM,K 3.3 mmol/L (3.5-5.1); SODIUM,NA 136 mmol/L (136-145)
[2023-05-17 01:33] LABS: ESTIMATED GFR 118 mL/min (>=60)
[2023-05-17] MEDS ORDERED: LORazepam 0.5 MG Tab PO ONE (01:48)
[2023-05-17] MEDS ORDERED: Pantoprazole 40 MG Tab.CR PO ONE (01:49)
[2023-05-17] MEDS ORDERED: Potassium Chloride 10 MEQ Tab.ER PO ONE (02:30)
[2023-05-17 03:32] VITALS: BP 97/53; PULSE 66
== END 2023-05-17 03:50 | disposition home or self-care (01) ==
LOC: KA.ED 00:24
DX: R07.9 Chest pain, unspecified (principal); R51.9 Headache, unspecified; E87.6 Hypokalemia; K21.9 Gastro-esophageal reflux disease without esophagitis; I25.2 Old myocardial infarction; E78.00 Pure hypercholesterolemia, unspecified; J45.909 Unspecified asthma, uncomplicated; E11.9 Type 2 diabetes mellitus without complications; E66.9 Obesity, unspecified; Z79.899 Other long term (current) drug therapy; Z88.1 Allergy status to other antibiotic agents; Z91.011 Allergy to milk products; Z68.29 Body mass index [BMI] 29.0-29.9, adult
CPT/HCPCS: 36415; 80048; 84484; 85025; 93005; 93010; 99284; 99285; A9270-GY; J3490

== ENCOUNTER 2023-05-27 23:15 | Observation (INO) | payer MEDICAID ==
[2023-05-27] MEDS ORDERED: Sodium Chloride 0.9% 10 ML Syringe FLUSH PRN (23:44)
[2023-05-27] MEDS ORDERED: Sodium Chloride 0.9% 1,000 ML IV ONE (23:44)
[2023-05-28 00:24] LABS: APPEARANCE,URINE SLIGHTLY CLOUDY (CLEAR); BILIRUBIN,URINE NEGATIVE (NEGATIVE); COLOR,URINE YELLOW (YELLOW); GLUCOSE,URINE NEGATIVE (NEGATIVE); KETONES,URINE NEGATIVE (NEGATIVE); LEUKOCYTE ESTERASE,URINE NEGATIVE (NEGATIVE); NITRITE,URINE NEGATIVE (NEGATIVE); OCCULT BLOOD,URINE NEGATIVE (NEGATIVE); PH,URINE 6.5 (5.0-9.0); PROTEIN,URINE NEGATIVE (NEGATIVE)
[2023-05-28 00:37] LABS: AMPHETAMINES SCREEN, URINE NEGATIVE (NEGATIVE); BARBITURATE SCREEN,URINE NEGATIVE (NEGATIVE); BENZODIAZEPINES SCREEN,URINE POSITIVE (NEGATIVE); COCAINE METABOLITES,URINE NEGATIVE (NEGATIVE); METHADONE SCREEN, URINE NEGATIVE (NEGATIVE); METHAMPHETAMINES SCREEN, URINE NEGATIVE (NEGATIVE); OXYCODONE SCREEN,URINE NEGATIVE (NEGATIVE); PCP SCREEN,URINE NEGATIVE (NEGATIVE); PROPOXYPHENE SCREEN,URINE NEGATIVE (NEGATIVE); TCA SCREEN,URINE NEGATIVE (NEGATIVE); THC SCREEN,URINE 50 NG/ML POSITIVE (NEGATIVE)
[2023-05-28 00:37] LABS: BASOPHILS ABSOLUTE AUTO 0.04 10^3/uL (0.00-0.10); BASOPHILS PERCENT AUTO 0.5 % (0.0-1.0); EOSINOPHILS ABSOLUTE AUTO 0.27 10^3/uL (0.10-0.30); EOSINOPHILS PERCENT AUTO 3.1 % (1.0-3.0); HEMATOCRIT 31.2 % (37.0-47.0); HEMOGLOBIN 10.3 g/dL (12.0-16.0); IMMATURE GRAN ABSOLUTE AUTO 0.02 10^3/uL (0.00-0.50); IMMATURE GRAN PERCENT AUTO 0.2 % (0.0-5.0); LYMPHOCYTES ABSOLUTE AUTO 2.98 10^3/uL (1.00-4.00); LYMPHOCYTES PERCENT AUTO 34.3 % (20.0-40.0); MEAN CORPUSCULAR HEMOGLOBIN 28.4 pg (27.0-31.0); MEAN PLATELET VOLUME 9.1 fL (7.4-10.4); MONOCYTES ABSOLUTE AUTO 0.36 10^3/uL (0.10-0.80); MONOCYTES PERCENT AUTO 4.1 % (2.0-8.0); NEUTROPHILS ABSOLUTE AUTO 5.03 10^3/uL (2.50-7.00); NEUTROPHILS PERCENT AUTO 57.8 % (50.0-70.0); PLATELET COUNT,PLT 154 10^3/uL (150-400); RED BLOOD CELL COUNT 3.63 10^6/uL (3.80-5.50); RED CELL DISTRIBUTION WIDTH 14.5 % (11.5-14.5)
[2023-05-28 00:51] LABS: BACTERIA,URINE OCCASIONAL /HPF (NONE TO FEW); EPITHELIAL CELLS,URINE FEW /LPF; MUCUS,URINE RARE /LPF (NEGATIVE); RBC,URINE 0-5 /HPF (0-5); WBC,URINE 0-5 /HPF (0-5)
[2023-05-28 00:56] LABS: HCG QUALITATIVE,SERUM NEGATIVE (NEGATIVE)
[2023-05-28 00:58] LABS: ALANINE AMINOTRANSFERASE,ALT 15 U/L (14-63); ALBUMIN 3.01 g/dL (3.40-5.00); ALKALINE PHOSPHATASE 67 U/L (46-116); ANION GAP 15.6 mmol/L (5-15); ASPARTATE AMNIOTRANSFERASE,AST 13 U/L (15-37); BILIRUBIN TOTAL 0.3 mg/dL (0.2-1.0); BLOOD UREA NITROGEN,BUN 8 mg/dL (7-18); CALCIUM 7.7 mg/dL (8.7-10.3); CARBON DIOXIDE,CO2 23.8 mmol/L (21.0-32.0); CHLORIDE,CL 107 mmol/L (98-107); CREATININE 0.54 mg/dL (0.51-1.17); EST CRCL DRUG DOSING (CG) 100.47 mL/min; GLUCOSE RANDOM 103 mg/dL (70-140); POTASSIUM,K 3.4 mmol/L (3.5-5.1); PROTEIN TOTAL,TP 6.6 g/dL (6.4-8.2); SODIUM,NA 143 mmol/L (136-145)
[2023-05-28 01:01] LABS: ESTIMATED GFR 120 mL/min (>=60); ETHANOL BLOOD MEDICAL 1 mg/dL (NOT DETECTED)
[2023-05-28] MEDS ORDERED: Dextrose 5%-0.45% NaCl 1,000 ML IV SCH (02:15)
[2023-05-28] MEDS ORDERED: Albuterol 0.083% 2.5 MG/3 ML Neb Soln NEB PRN (02:17)
[2023-05-28] MEDS ORDERED: Albuterol/Ipratropium 3.0-0.5 MG/3 ML Neb Soln NEB PRN (02:17)
[2023-05-28] MEDS ORDERED: Ondansetron 4 MG/2 ML SDV IV PRN (02:17)
[2023-05-28] MEDS ORDERED: Lactulose Soln 10 GM/15 ML 30 ML UD Cup PO PRN (02:21)
[2023-05-28] MEDS: D5 1/2 NS w/ 20 mEq/L KCl 1,000 ML IV SCH ×2 (03:41→14:38)
[2023-05-28] MEDS: Pantoprazole 40 MG Tab.CR PO SCH ×3 (05:56→18:02)
[2023-05-28 07:32] LABS: HEMOGLOBIN 10.4 g/dL (12.0-16.0); MEAN CORPUSCULAR HGB CONC 32.5 g/dL (32.0-36.0); MEAN CORPUSCULAR VOLUME 86.3 fL (82.0-92.0); MEAN PLATELET VOLUME 9.2 fL (7.4-10.4); PLATELET COUNT,PLT 152 10^3/uL (150-400); RED BLOOD CELL COUNT 3.71 10^6/uL (3.80-5.50); RED CELL DISTRIBUTION WIDTH 14.5 % (11.5-14.5); WHITE BLOOD CELL COUNT,WBC 7.79 10^3/uL (5.00-10.00)
[2023-05-28 07:49] LABS: ALBUMIN 2.81 g/dL (3.40-5.00); ANION GAP 14.4 mmol/L (5-15); BILIRUBIN TOTAL 0.3 mg/dL (0.2-1.0); CALCIUM 7.7 mg/dL (8.7-10.3); CARBON DIOXIDE,CO2 23.3 mmol/L (21.0-32.0); CREATININE 0.52 mg/dL (0.51-1.17); EST CRCL DRUG DOSING (CG) 104.33 mL/min; POTASSIUM,K 3.7 mmol/L (3.5-5.1); PROTEIN TOTAL,TP 6.3 g/dL (6.4-8.2)
[2023-05-28] MEDS: FLUoxetine 10 MG Cap PO SCH (08:46)
[2023-05-28] MEDS: Magnesium Chloride 64 MG Tab.ER PO SCH (08:46)
[2023-05-28] MEDS: Formoterol/Mometasone 200-5 MCG 8.8 GM Inhaler IH SCH ×2 (08:46→20:32)
[2023-05-28] MEDS ORDERED: Non-Formulary Medication 1 Each (Fluticasone Propion/Salmeterol [Advair 250-50 Diskus] 1 E INH SCH (09:00)
[2023-05-28] MEDS: Potassium Chloride 20 MEQ Tab.ER PO SCH (09:29)
[2023-05-28] MEDS: Metoclopramide 10 MG/2 ML SDV IVPUSH SCH ×2 (10:50→17:53)
[2023-05-28] MEDS: Lactulose Soln 10 GM/15 ML 30 ML UD Cup PO SCH ×2 (14:38→20:32)
[2023-05-28] MEDS ORDERED: PRAZOSIN 1 MG PO SCH (21:00)
[2023-05-29] MEDS ORDERED: Simethicone 80 MG Tab.Chew PO PRN (02:01)
[2023-05-29] MEDS: Pantoprazole 40 MG Tab.CR PO SCH ×2 (06:03→06:36)
[2023-05-29] MEDS: FLUoxetine 10 MG Cap PO SCH (08:48)
[2023-05-29] MEDS: Magnesium Chloride 64 MG Tab.ER PO SCH (08:48)
[2023-05-29] MEDS: Lactulose Soln 10 GM/15 ML 30 ML UD Cup PO SCH (08:48)
[2023-05-29] MEDS: Potassium Chloride 20 MEQ Tab.ER PO SCH (08:49)
[2023-05-29] MEDS: Formoterol/Mometasone 200-5 MCG 8.8 GM Inhaler IH SCH (08:49)
[2023-05-29 10:26] LABS: BASOPHILS ABSOLUTE AUTO 0.03 10^3/uL (0.00-0.10); BASOPHILS PERCENT AUTO 0.3 % (0.0-1.0); EOSINOPHILS ABSOLUTE AUTO 0.19 10^3/uL (0.10-0.30); EOSINOPHILS PERCENT AUTO 2.1 % (1.0-3.0); HEMATOCRIT 34.2 % (37.0-47.0); HEMOGLOBIN 11.2 g/dL (12.0-16.0); IMMATURE GRAN ABSOLUTE AUTO 0.01 10^3/uL (0.00-0.50); IMMATURE GRAN PERCENT AUTO 0.1 % (0.0-5.0); LYMPHOCYTES ABSOLUTE AUTO 2.36 10^3/uL (1.00-4.00); MEAN CORPUSCULAR HEMOGLOBIN 27.9 pg (27.0-31.0); MEAN CORPUSCULAR HGB CONC 32.7 g/dL (32.0-36.0); MEAN CORPUSCULAR VOLUME 85.3 fL (82.0-92.0); MEAN PLATELET VOLUME 8.9 fL (7.4-10.4); MONOCYTES PERCENT AUTO 3.3 % (2.0-8.0); NEUTROPHILS ABSOLUTE AUTO 6.18 10^3/uL (2.50-7.00); NEUTROPHILS PERCENT AUTO 68.2 % (50.0-70.0); PLATELET COUNT,PLT 155 10^3/uL (150-400); RED BLOOD CELL COUNT 4.01 10^6/uL (3.80-5.50); RED CELL DISTRIBUTION WIDTH 14.5 % (11.5-14.5); WHITE BLOOD CELL COUNT,WBC 9.07 10^3/uL (5.00-10.00)
[2023-05-29 10:43] LABS: ANION GAP 13.1 mmol/L (5-15); CALCIUM 9.2 mg/dL (8.7-10.3); CREATININE 0.61 mg/dL (0.51-1.17); EST CRCL DRUG DOSING (CG) 88.94 mL/min; MAGNESIUM 1.5 mg/dL (1.8-2.4); POTASSIUM,K 4.1 mmol/L (3.5-5.1)
[2023-05-29 10:48] VITALS: BP 110/61; PULSE 64
[2023-05-29] MEDS ORDERED: Magnesium Oxide 500 MG Tab PO SCH (11:00)
== END 2023-05-29 11:27 | disposition home or self-care (01) ==
LOC: KA.ED 23:15 → KA.MS 05-28 01:22 → UNDOADMOB 05-28 01:25
PROVIDERS: ADMIT Family Medicine; ATTEND Family Medicine
DX: K70.30 Alcoholic cirrhosis of liver without ascites (principal); K76.0 Fatty (change of) liver, not elsewhere classified; F10.10 Alcohol abuse, uncomplicated; K76.82 Hepatic encephalopathy; K21.9 Gastro-esophageal reflux disease without esophagitis; E78.00 Pure hypercholesterolemia, unspecified; I25.2 Old myocardial infarction; G93.40 Encephalopathy, unspecified; D63.8 Anemia in other chronic diseases classified elsewhere; F31.31 Bipolar disorder, current episode depressed, mild; E86.0 Dehydration; M25.511 Pain in right shoulder; F41.0 Panic disorder [episodic paroxysmal anxiety]; F32.A Depression, unspecified; E11.9 Type 2 diabetes mellitus without complications; E87.6 Hypokalemia; Z90.89 Acquired absence of other organs; Z98.51 Tubal ligation status; Y90.9 Presence of alcohol in blood, level not specified; Z88.1 Allergy status to other antibiotic agents; Z88.0 Allergy status to penicillin; Z91.011 Allergy to milk products; Z79.899 Other long term (current) drug therapy
CPT/HCPCS: 36415; 70450; 71045; 80048; 80053; 80305-QW; 80307; 81001; 82140; 83605; 83735; 84484; 84703; 85025; 85027; 96360; 99285-25; A9270-GY; J2765; J3480; J7030; J7042; Q3014

== ENCOUNTER 2024-04-22 00:14 | Emergency (ER) | payer MEDICAID ==
[2024-04-22 01:07] LABS: BASOPHILS ABSOLUTE AUTO 0.08 10^3/uL (0.00-0.10); EOSINOPHILS PERCENT AUTO 2.4 % (1.0-3.0); IMMATURE GRAN ABSOLUTE AUTO 0.01 10^3/uL (0.00-0.50); IMMATURE GRAN PERCENT AUTO 0.1 % (0.0-5.0); LYMPHOCYTES ABSOLUTE AUTO 3.81 10^3/uL (1.00-4.00); LYMPHOCYTES PERCENT AUTO 46.5 % (20.0-40.0); MEAN CORPUSCULAR HEMOGLOBIN 30.4 pg (27.0-31.0); MEAN CORPUSCULAR HGB CONC 33.3 g/dL (32.0-36.0); MEAN CORPUSCULAR VOLUME 91.3 fL (82.0-92.0); MEAN PLATELET VOLUME 8.8 fL (7.4-10.4); MONOCYTES PERCENT AUTO 6.1 % (2.0-8.0); NEUTROPHILS ABSOLUTE AUTO 3.59 10^3/uL (2.50-7.00); NEUTROPHILS PERCENT AUTO 43.9 % (50.0-70.0); PLATELET COUNT,PLT 187 10^3/uL (150-400); RED CELL DISTRIBUTION WIDTH 14.7 % (11.5-14.5); WHITE BLOOD CELL COUNT,WBC 8.19 10^3/uL (5.00-10.00)
[2024-04-22 01:17] LABS: ALANINE AMINOTRANSFERASE,ALT 46 U/L (14-63); ALKALINE PHOSPHATASE 58 U/L (46-116); ANION GAP 17.5 mmol/L (5-15); ASPARTATE AMNIOTRANSFERASE,AST 82 U/L (15-37); BILIRUBIN TOTAL 0.6 mg/dL (0.2-1.0); BLOOD UREA NITROGEN,BUN 3 mg/dL (7-18); CARBON DIOXIDE,CO2 24.1 mmol/L (21.0-32.0); CHLORIDE,CL 105 mmol/L (98-107); CREATININE 0.55 mg/dL (0.51-1.17); ESTIMATED GFR 119 mL/min (>=60); ETHANOL BLOOD MEDICAL 233 mg/dL (NOT DETECTED); GLUCOSE RANDOM 83 mg/dL (70-140); LIPASE 36 U/L (16-77); POTASSIUM,K 3.6 mmol/L (3.5-5.1); PROTEIN TOTAL,TP 7.3 g/dL (6.4-8.2); SODIUM,NA 143 mmol/L (136-145)
[2024-04-22 01:20] LABS: APPEARANCE,URINE CLEAR (CLEAR); BILIRUBIN,URINE NEGATIVE (NEGATIVE); COLOR,URINE YELLOW (YELLOW); GLUCOSE,URINE NEGATIVE (NEGATIVE); KETONES,URINE NEGATIVE (NEGATIVE); LEUKOCYTE ESTERASE,URINE NEGATIVE (NEGATIVE); NITRITE,URINE NEGATIVE (NEGATIVE); OCCULT BLOOD,URINE NEGATIVE (NEGATIVE); PH,URINE 6.5 (5.0-9.0); PROTEIN,URINE NEGATIVE (NEGATIVE)
[2024-04-22] MEDS: Sodium Chloride 0.9% 10 ML Syringe FLUSH PRN (01:23)
[2024-04-22] MEDS: Sodium Chloride 0.9% 1,000 ML IV ONE (01:46)
[2024-04-22] MEDS: Sodium Chloride 0.9% 50 ML IV SCH (01:48)
[2024-04-22] MEDS: Iopamidol 755 Mg/ML 100 ML Bottle IV ONE (01:48)
[2024-04-22] MEDS: Metoclopramide 10 MG/2 ML SDV IVPUSH ONE (02:30)
[2024-04-22] MEDS: Famotidine 20 MG/2 ML SDV IVPUSH ONE (02:33)
[2024-04-22 03:28] VITALS: BP 125/81; PULSE 106
== END 2024-04-22 02:53 | disposition home or self-care (01) ==
LOC: KA.ED 00:14
DX: K29.20 Alcoholic gastritis without bleeding (principal); R11.2 Nausea with vomiting, unspecified; F10.220 Alcohol dependence with intoxication, uncomplicated; I25.2 Old myocardial infarction; K21.9 Gastro-esophageal reflux disease without esophagitis; E11.9 Type 2 diabetes mellitus without complications; E66.9 Obesity, unspecified; Z68.31 Body mass index [BMI] 31.0-31.9, adult; Z79.899 Other long term (current) drug therapy; Z88.1 Allergy status to other antibiotic agents; Z88.0 Allergy status to penicillin; Z91.011 Allergy to milk products
CPT/HCPCS: 36415; 74018; 74177; 80053; 80307; 81003; 82140; 83690; 84484; 85025; 96361; 96374; 96375; 99285-25; J2765; J3490; J7030; Q9967

== ENCOUNTER 2024-05-02 00:40 | Emergency (ER) | payer MEDICAID ==
[2024-05-02] MEDS: Sodium Chloride 0.9% 10 ML Syringe FLUSH PRN (01:26)
[2024-05-02] MEDS: Lactated Ringers 1,000 ML IV ONE (01:33)
[2024-05-02 01:48] LABS: BASOPHILS ABSOLUTE AUTO 0.04 10^3/uL (0.00-0.10); BASOPHILS PERCENT AUTO 0.7 % (0.0-1.0); EOSINOPHILS ABSOLUTE AUTO 0.02 10^3/uL (0.10-0.30); EOSINOPHILS PERCENT AUTO 0.4 % (1.0-3.0); HEMATOCRIT 42.1 % (37.0-47.0); HEMOGLOBIN 14.7 g/dL (12.0-16.0); IMMATURE GRAN ABSOLUTE AUTO 0.01 10^3/uL (0.00-0.50); IMMATURE GRAN PERCENT AUTO 0.2 % (0.0-5.0); LYMPHOCYTES ABSOLUTE AUTO 2.04 10^3/uL (1.00-4.00); LYMPHOCYTES PERCENT AUTO 35.8 % (20.0-40.0); MEAN CORPUSCULAR HEMOGLOBIN 31.7 pg (27.0-31.0); MEAN CORPUSCULAR HGB CONC 34.9 g/dL (32.0-36.0); MEAN CORPUSCULAR VOLUME 90.7 fL (82.0-92.0); MEAN PLATELET VOLUME 9.1 fL (7.4-10.4); MONOCYTES ABSOLUTE AUTO 0.38 10^3/uL (0.10-0.80); MONOCYTES PERCENT AUTO 6.7 % (2.0-8.0); NEUTROPHILS ABSOLUTE AUTO 3.21 10^3/uL (2.50-7.00); NEUTROPHILS PERCENT AUTO 56.2 % (50.0-70.0); PLATELET COUNT,PLT 157 10^3/uL (150-400); RED BLOOD CELL COUNT 4.64 10^6/uL (3.80-5.50); RED CELL DISTRIBUTION WIDTH 14.2 % (11.5-14.5)
[2024-05-02 02:11] LABS: ALANINE AMINOTRANSFERASE,ALT 49 U/L (14-63); ALBUMIN 3.79 g/dL (3.40-5.00); ALKALINE PHOSPHATASE 68 U/L (46-116); ASPARTATE AMNIOTRANSFERASE,AST 73 U/L (15-37); BILIRUBIN TOTAL 0.8 mg/dL (0.2-1.0); BLOOD UREA NITROGEN,BUN 7 mg/dL (7-18); CALCIUM 8.7 mg/dL (8.7-10.3); CARBON DIOXIDE,CO2 20.2 mmol/L (21.0-32.0); CHLORIDE,CL 101 mmol/L (98-107); CREATININE 0.58 mg/dL (0.51-1.17); EST CRCL DRUG DOSING (CG) 92.61 mL/min; ESTIMATED GFR 117 mL/min (>=60); GLUCOSE RANDOM 145 mg/dL (70-140); POTASSIUM,K 3.2 mmol/L (3.5-5.1); PROTEIN TOTAL,TP 8.2 g/dL (6.4-8.2); SODIUM,NA 140 mmol/L (136-145)
[2024-05-02 02:13] LABS: ACETAMINOPHEN < 0.0 ug/mL (10.0-30.0); ETHANOL BLOOD MEDICAL 248 mg/dL (NOT DETECTED)
[2024-05-02 02:19] LABS: APPEARANCE,URINE CLEAR (CLEAR); BILIRUBIN,URINE NEGATIVE (NEGATIVE); COLOR,URINE YELLOW (YELLOW); GLUCOSE,URINE NEGATIVE (NEGATIVE); KETONES,URINE NEGATIVE (NEGATIVE); LEUKOCYTE ESTERASE,URINE NEGATIVE (NEGATIVE); NITRITE,URINE NEGATIVE (NEGATIVE); OCCULT BLOOD,URINE SMALL (NEGATIVE); PROTEIN,URINE NEGATIVE (NEGATIVE); UROBILINOGEN,URINE 0.2 E.U./dL (0.2-1.0)
[2024-05-02 02:25] LABS: BACTERIA,URINE RARE /HPF (NONE TO FEW); EPITHELIAL CELLS,URINE RARE /LPF; WBC,URINE 0-5 /HPF (0-5)
[2024-05-02] MEDS: Ondansetron 4 MG/2 ML SDV IVPUSH ONE (02:26)
[2024-05-02 02:29] LABS: AMPHETAMINES SCREEN, URINE NEGATIVE (NEGATIVE); BARBITURATE SCREEN,URINE NEGATIVE (NEGATIVE); BENZODIAZEPINES SCREEN,URINE NEGATIVE (NEGATIVE); COCAINE METABOLITES,URINE NEGATIVE (NEGATIVE); METHADONE SCREEN, URINE NEGATIVE (NEGATIVE); METHAMPHETAMINES SCREEN, URINE NEGATIVE (NEGATIVE); OXYCODONE SCREEN,URINE NEGATIVE (NEGATIVE); PCP SCREEN,URINE NEGATIVE (NEGATIVE); TCA SCREEN,URINE NEGATIVE (NEGATIVE); THC SCREEN,URINE 50 NG/ML POSITIVE (NEGATIVE)
[2024-05-02] MEDS: Sodium Chloride 0.9% 1,000 ML IV SCH (02:50)
[2024-05-02 08:42] VITALS: BP 120/72; PULSE 78
== END 2024-05-02 08:47 ==
LOC: KA.ED 00:40
DX: T42.4X2A Poisoning by benzodiazepines, intentional self-harm, initial encounter (principal); T44.6X2A Poisoning by alpha-adrenoreceptor antagonists, intentional self-harm, initial encounter; F10.220 Alcohol dependence with intoxication, uncomplicated; R45.851 Suicidal ideations; I25.2 Old myocardial infarction; K21.9 Gastro-esophageal reflux disease without esophagitis; E11.9 Type 2 diabetes mellitus without complications; E66.9 Obesity, unspecified; Z68.30 Body mass index [BMI] 30.0-30.9, adult; Z79.899 Other long term (current) drug therapy; Z88.0 Allergy status to penicillin; Z88.1 Allergy status to other antibiotic agents; Z91.011 Allergy to milk products
CPT/HCPCS: 36415; 80053; 80143; 80305-QW; 80307; 81001; 81025; 85025; 93010; 96361; 96374; 99284; 99285-25; J2405; J3490; J7030; J7120

== ENCOUNTER 2024-06-26 23:50 | Emergency (ER) | payer MEDICAID ==
[2024-06-27 00:07] VITALS: BP 115/84; PULSE 93
[2024-06-27] MEDS: Codeine/guaiFENesin 10-100 MG/5 ML Syrup 5 ML Cup PO ONE (00:33)
[2024-06-27] MEDS: Codeine/guaiFENesin 10-100 MG/5 ML Syrup 5 ML Cup ONE (00:36)
[2024-06-27] MEDS: Pseudoephedrine 30 MG Tab PO ONE (00:55)
== END 2024-06-27 01:04 | disposition home or self-care (01) ==
LOC: KA.ED 23:50
DX: H65.01 Acute serous otitis media, right ear (principal); R05.9 Cough, unspecified; F17.210 Nicotine dependence, cigarettes, uncomplicated; Z88.0 Allergy status to penicillin; Z88.1 Allergy status to other antibiotic agents; Z91.011 Allergy to milk products; Z79.899 Other long term (current) drug therapy
CPT/HCPCS: 99283; A9270

== ENCOUNTER 2024-07-10 14:18 | Emergency (ER) | payer SELFPAY ==
[2024-07-10] MEDS ORDERED: Ondansetron 4 MG Tab.DIS PO ONE (14:19)
[2024-07-10 14:33] LABS: BASOPHILS ABSOLUTE AUTO 0.06 10^3/uL (0.00-0.10); BASOPHILS PERCENT AUTO 0.9 % (0.0-1.0); EOSINOPHILS ABSOLUTE AUTO 0.25 10^3/uL (0.10-0.30); EOSINOPHILS PERCENT AUTO 3.8 % (1.0-3.0); HEMATOCRIT 41.9 % (37.0-47.0); HEMOGLOBIN 14.4 g/dL (12.0-16.0); IMMATURE GRAN ABSOLUTE AUTO 0.01 10^3/uL (0.00-0.50); IMMATURE GRAN PERCENT AUTO 0.2 % (0.0-5.0); LYMPHOCYTES ABSOLUTE AUTO 1.58 10^3/uL (1.00-4.00); MEAN CORPUSCULAR HEMOGLOBIN 31.9 pg (27.0-31.0); MEAN CORPUSCULAR HGB CONC 34.4 g/dL (32.0-36.0); MEAN CORPUSCULAR VOLUME 92.9 fL (82.0-92.0); MEAN PLATELET VOLUME 9.3 fL (7.4-10.4); MONOCYTES ABSOLUTE AUTO 0.47 10^3/uL (0.10-0.80); MONOCYTES PERCENT AUTO 7.2 % (2.0-8.0); NEUTROPHILS PERCENT AUTO 63.9 % (50.0-70.0); PLATELET COUNT,PLT 157 10^3/uL (150-400); RED BLOOD CELL COUNT 4.51 10^6/uL (3.80-5.50); RED CELL DISTRIBUTION WIDTH 13.4 % (11.5-14.5); WHITE BLOOD CELL COUNT,WBC 6.57 10^3/uL (5.00-10.00)
[2024-07-10 15:01] LABS: ALANINE AMINOTRANSFERASE,ALT 54 U/L (14-63); ALBUMIN 4.12 g/dL (3.40-5.00); ALKALINE PHOSPHATASE 76 U/L (46-116); AMYLASE 24 U/L (25-125); ANION GAP 19.7 mmol/L (5-15); ASPARTATE AMNIOTRANSFERASE,AST 132 U/L (15-37); BILIRUBIN TOTAL 1.6 mg/dL (0.2-1.0); BLOOD UREA NITROGEN,BUN 13 mg/dL (7-18); C-REACTIVE PROTEIN 1.19 mg/dL (0.00-0.50); CARBON DIOXIDE,CO2 22.1 mmol/L (21.0-32.0); CHLORIDE,CL 95 mmol/L (98-107); GLUCOSE RANDOM 105 mg/dL (70-140); LIPASE 34 U/L (16-77); POTASSIUM,K 2.8 mmol/L (3.5-5.1); PROTEIN TOTAL,TP 8.7 g/dL (6.4-8.2); SODIUM,NA 134 mmol/L (136-145)
[2024-07-10 15:01] LABS: APPEARANCE,URINE SLIGHTLY CLOUDY (CLEAR); BILIRUBIN,URINE LARGE (NEGATIVE); COLOR,URINE DARK YELLOW (YELLOW); GLUCOSE,URINE NEGATIVE (NEGATIVE); KETONES,URINE >=160 mg/dL (NEGATIVE); LEUKOCYTE ESTERASE,URINE NEGATIVE (NEGATIVE); NITRITE,URINE NEGATIVE (NEGATIVE); OCCULT BLOOD,URINE NEGATIVE (NEGATIVE); PROTEIN,URINE 100 mg/dL (NEGATIVE)
[2024-07-10 15:04] LABS: ESTIMATED GFR 116 mL/min (>=60); ETHANOL BLOOD MEDICAL < 3 mg/dL (<3)
[2024-07-10 15:07] LABS: BACTERIA,URINE FEW /HPF (NONE TO FEW); EPITHELIAL CELLS,URINE FEW /LPF; MUCUS,URINE FEW /LPF (NEGATIVE); RBC,URINE 0-5 /HPF (0-5); WBC,URINE 0-5 /HPF (0-5)
[2024-07-10] MEDS: Ondansetron 4 MG/2 ML SDV IVPUSH ONE (15:08)
[2024-07-10] MEDS: Iopamidol 755 Mg/ML 100 ML Bottle IV ONE (15:39)
[2024-07-10] MEDS: Sodium Chloride 0.9% 50 ML IV SCH (15:39)
[2024-07-10] MEDS: Sodium Chloride 0.9% 1,000 ML IV ONE (15:55)
[2024-07-10 16:19] LABS: INFLUENZA A NAA NEGATIVE (NEGATIVE); INFLUENZA B NAA NEGATIVE (NEGATIVE); RESPIRATORY SYNCYTIAL VIR NAA NEGATIVE (NEGATIVE)
[2024-07-10 16:20] LABS: CORONAVIRUS COVID-19 NAA NEGATIVE (NEGATIVE)
[2024-07-10] MEDS: Ondansetron 4 MG Tab.DIS PO PRN (18:15)
[2024-07-10 21:14] VITALS: BP 136/88; PULSE 89
== END 2024-07-10 18:17 | disposition home or self-care (01) ==
LOC: KA.ED 14:18
DX: R11.2 Nausea with vomiting, unspecified (principal); R19.7 Diarrhea, unspecified; I25.2 Old myocardial infarction; K21.9 Gastro-esophageal reflux disease without esophagitis; E11.9 Type 2 diabetes mellitus without complications; E66.9 Obesity, unspecified; Z79.51 Long term (current) use of inhaled steroids; Z79.899 Other long term (current) drug therapy; Z91.011 Allergy to milk products; Z88.0 Allergy status to penicillin; Z88.1 Allergy status to other antibiotic agents; Z68.31 Body mass index [BMI] 31.0-31.9, adult
CPT/HCPCS: 0241U; 36415; 71046; 74177; 80053; 80307; 81001; 82140; 82150; 83690; 85025; 86140; 96361; 96374; 99284-25; A9270-GY; J2405; J3490; J7030; Q9967

== ENCOUNTER 2024-08-03 00:50 | Emergency (ER) | payer SELFPAY ==
[2024-08-03] MEDS ORDERED: Sodium Chloride 0.9% 10 ML Syringe FLUSH PRN (01:15)
[2024-08-03] MEDS: Ondansetron 4 MG/2 ML SDV IVPUSH ONE (01:22)
[2024-08-03] MEDS: Sodium Chloride 0.9% 1,000 ML IV ONE (01:25)
[2024-08-03 01:37] LABS: BASOPHILS ABSOLUTE AUTO 0.09 10^3/uL (0.00-0.10); BASOPHILS PERCENT AUTO 1.1 % (0.0-1.0); EOSINOPHILS ABSOLUTE AUTO 0.29 10^3/uL (0.10-0.30); EOSINOPHILS PERCENT AUTO 3.4 % (1.0-3.0); HEMATOCRIT 43.6 % (37.0-47.0); HEMOGLOBIN 15.1 g/dL (12.0-16.0); IMMATURE GRAN ABSOLUTE AUTO 0.02 10^3/uL (0.00-0.50); IMMATURE GRAN PERCENT AUTO 0.2 % (0.0-5.0); LYMPHOCYTES ABSOLUTE AUTO 4.25 10^3/uL (1.00-4.00); LYMPHOCYTES PERCENT AUTO 49.6 % (20.0-40.0); MEAN CORPUSCULAR HEMOGLOBIN 32.2 pg (27.0-31.0); MEAN CORPUSCULAR HGB CONC 34.6 g/dL (32.0-36.0); MEAN PLATELET VOLUME 9.2 fL (7.4-10.4); MONOCYTES ABSOLUTE AUTO 0.44 10^3/uL (0.10-0.80); MONOCYTES PERCENT AUTO 5.1 % (2.0-8.0); NEUTROPHILS ABSOLUTE AUTO 3.48 10^3/uL (2.50-7.00); NEUTROPHILS PERCENT AUTO 40.6 % (50.0-70.0); PLATELET COUNT,PLT 209 10^3/uL (150-400); RED BLOOD CELL COUNT 4.69 10^6/uL (3.80-5.50); RED CELL DISTRIBUTION WIDTH 13.5 % (11.5-14.5); WHITE BLOOD CELL COUNT,WBC 8.57 10^3/uL (5.00-10.00)
[2024-08-03] MEDS: Famotidine 20 MG/2 ML SDV IVPUSH ONE (01:51)
[2024-08-03 02:01] LABS: ALANINE AMINOTRANSFERASE,ALT 35 U/L (14-63); ALBUMIN 3.77 g/dL (3.40-5.00); ALKALINE PHOSPHATASE 71 U/L (46-116); ASPARTATE AMNIOTRANSFERASE,AST 76 U/L (15-37); BILIRUBIN TOTAL 0.7 mg/dL (0.2-1.0); CALCIUM 8.5 mg/dL (8.7-10.3); CHLORIDE,CL 101 mmol/L (98-107); CREATININE 0.54 mg/dL (0.51-1.17); GLUCOSE RANDOM 113 mg/dL (70-140); LIPASE 35 U/L (16-77); MAGNESIUM 1.2 mg/dL (1.8-2.4); PROTEIN TOTAL,TP 8.3 g/dL (6.4-8.2)
[2024-08-03 02:09] LABS: ANION GAP 18.5 mmol/L (5-15); BLOOD UREA NITROGEN,BUN 3 mg/dL (7-18); CARBON DIOXIDE,CO2 23.5 mmol/L (21.0-32.0); SODIUM,NA 140 mmol/L (136-145)
[2024-08-03 02:15] LABS: ESTIMATED GFR 119 mL/min (>=60)
[2024-08-03 02:16] LABS: ETHANOL BLOOD MEDICAL 280 mg/dL (<3)
[2024-08-03 06:16] VITALS: BP 141/107; PULSE 131
== END 2024-08-03 03:15 | disposition left against medical advice (07) ==
LOC: KA.ED 00:50
DX: E87.6 Hypokalemia (principal); E83.42 Hypomagnesemia; E78.00 Pure hypercholesterolemia, unspecified; K21.9 Gastro-esophageal reflux disease without esophagitis; Z79.899 Other long term (current) drug therapy; Z91.011 Allergy to milk products; Z88.1 Allergy status to other antibiotic agents; Z88.0 Allergy status to penicillin
CPT/HCPCS: 80053; 80307; 82140; 83690; 83735; 85025; 96361; 96374; 96375; 99284-25; J2405; J3490; J7030

== ENCOUNTER 2024-08-03 11:07 | Emergency (ER) | payer SELFPAY ==
[2024-08-03 12:24] VITALS: BP 127/86; PULSE 90
[2024-08-03] MEDS: Ondansetron 4 MG/2 ML SDV IVPUSH ONE (12:40)
[2024-08-03] MEDS ORDERED: Sodium Chloride 0.9% 250 ML IV SCH (12:45)
[2024-08-03] MEDS: Potassium Chloride 20 MEQ in Premix Bag 1 BAG IV ONE (12:58)
[2024-08-03] MEDS: Magnesium Sulfate/Water Premix 2 GM in Premix Bag 1 BAG IV ONE (12:58)
[2024-08-03] MEDS: LORazepam 2 MG/ML SDV IVPUSH ONE (15:29)
[2024-08-03 15:46] LABS: MAGNESIUM 2.2 mg/dL (1.8-2.4); POTASSIUM,K 3.6 mmol/L (3.5-5.1)
[2024-08-03] MEDS: Ondansetron 4 MG Tab.DIS PO ONE (15:59)
[2024-08-03] MEDS: Ondansetron 4 MG Tab.DIS ONE (18:37)
== END 2024-08-03 16:45 | disposition home or self-care (01) ==
LOC: KA.ED 11:07
DX: E87.6 Hypokalemia (principal); E83.42 Hypomagnesemia; E78.00 Pure hypercholesterolemia, unspecified; J45.909 Unspecified asthma, uncomplicated; K21.9 Gastro-esophageal reflux disease without esophagitis; Z79.899 Other long term (current) drug therapy; Z88.1 Allergy status to other antibiotic agents; Z91.011 Allergy to milk products; Z88.0 Allergy status to penicillin
CPT/HCPCS: 36415; 83735; 84132; 96365; 96366; 96368; 96375; 99284-25; A9270-GY; J2060; J2405; J3475; J3480

== ENCOUNTER 2024-08-13 16:20 | Observation (INO) | payer MEDICAID ==
[2024-08-13] MEDS: Sodium Chloride 0.9% 10 ML Syringe FLUSH PRN (16:34)
[2024-08-13 16:42] LABS: BASOPHILS ABSOLUTE AUTO 0.07 10^3/uL (0.00-0.10); EOSINOPHILS ABSOLUTE AUTO 0.15 10^3/uL (0.10-0.30); EOSINOPHILS PERCENT AUTO 2.2 % (1.0-3.0); HEMATOCRIT 44.6 % (37.0-47.0); HEMOGLOBIN 15.7 g/dL (12.0-16.0); IMMATURE GRAN ABSOLUTE AUTO 0.01 10^3/uL (0.00-0.50); IMMATURE GRAN PERCENT AUTO 0.1 % (0.0-5.0); LYMPHOCYTES ABSOLUTE AUTO 2.52 10^3/uL (1.00-4.00); LYMPHOCYTES PERCENT AUTO 37.3 % (20.0-40.0); MEAN CORPUSCULAR HGB CONC 35.2 g/dL (32.0-36.0); MEAN CORPUSCULAR VOLUME 90.8 fL (82.0-92.0); MEAN PLATELET VOLUME 9.8 fL (7.4-10.4); MONOCYTES ABSOLUTE AUTO 0.41 10^3/uL (0.10-0.80); MONOCYTES PERCENT AUTO 6.1 % (2.0-8.0); NEUTROPHILS ABSOLUTE AUTO 3.59 10^3/uL (2.50-7.00); NEUTROPHILS PERCENT AUTO 53.3 % (50.0-70.0); PLATELET COUNT,PLT 132 10^3/uL (150-400); RED BLOOD CELL COUNT 4.91 10^6/uL (3.80-5.50); RED CELL DISTRIBUTION WIDTH 13.4 % (11.5-14.5); WHITE BLOOD CELL COUNT,WBC 6.75 10^3/uL (5.00-10.00)
[2024-08-13 16:58] LABS: ALBUMIN 4.33 g/dL (3.40-5.00); ANION GAP 23.4 mmol/L (5-15); BILIRUBIN TOTAL 2.2 mg/dL (0.2-1.0); CALCIUM 8.3 mg/dL (8.7-10.3); CREATININE 0.74 mg/dL (0.51-1.17); EST CRCL DRUG DOSING (CG) 72.59 mL/min; PROTEIN TOTAL,TP 8.6 g/dL (6.4-8.2)
[2024-08-13 17:05] LABS: POTASSIUM,K 2.4 mmol/L (3.5-5.1)
[2024-08-13] MEDS: Sodium Chloride 0.9% 1,000 ML IV ONE ×2 (17:16→20:59)
[2024-08-13] MEDS: Potassium Chloride 20 MEQ in Premix Bag 1 BAG IV ONE (17:19)
[2024-08-13] MEDS: Magnesium Sulfate/Water Premix 2 GM in Premix Bag 1 BAG IV ONE (17:32)
[2024-08-13] MEDS: Ondansetron 4 MG Tab.DIS PO ONE (18:52)
[2024-08-13] MEDS: Ondansetron 4 MG/2 ML SDV IVPUSH ONE (19:44)
[2024-08-13] MEDS: Ketorolac 30 MG/ML SDV IVPUSH ONE (20:11)
[2024-08-13] MEDS: Scopalamine 1mg/3day Transdermal Patch TRDERM PRN (20:30)
[2024-08-13 20:37] LABS: MAGNESIUM 1.8 mg/dL (1.8-2.4); POTASSIUM,K 2.9 mmol/L (3.5-5.1)
[2024-08-13] MEDS: Lactated Ringers 1,000 ML IV SCH (23:04)
[2024-08-13] MEDS: Potassium Chloride 20 MEQ in Premix Bag 1 BAG IV SCH (23:20)
[2024-08-13] MEDS: NS with KCl 40mEq 1,000 ML IV SCH (23:36)
[2024-08-13] MEDS: Melatonin 3 MG Tab PO PRN (23:40)
[2024-08-14 02:39] LABS: CALCIUM 7.3 mg/dL (8.7-10.3); CARBON DIOXIDE,CO2 22.2 mmol/L (21.0-32.0); CREATININE 0.68 mg/dL (0.51-1.17); EST CRCL DRUG DOSING (CG) 82.99 mL/min; MAGNESIUM 1.4 mg/dL (1.8-2.4); POTASSIUM,K 3.2 mmol/L (3.5-5.1)
[2024-08-14] MEDS ORDERED: Albuterol 8 GM Inhaler INH PRN (02:41)
[2024-08-14] MEDS ORDERED: traZODone 50 MG Tab PO PRN (02:41)
[2024-08-14] MEDS: LORazepam 0.5 MG Tab PO PRN (02:52)
[2024-08-14 07:56] LABS: HEMATOCRIT 33.4 % (37.0-47.0); HEMOGLOBIN 11.4 g/dL (12.0-16.0); MEAN CORPUSCULAR HEMOGLOBIN 32.3 pg (27.0-31.0); MEAN CORPUSCULAR HGB CONC 34.1 g/dL (32.0-36.0); MEAN CORPUSCULAR VOLUME 94.6 fL (82.0-92.0); MEAN PLATELET VOLUME 10.2 fL (7.4-10.4); PLATELET COUNT,PLT 78 10^3/uL (150-400); RED BLOOD CELL COUNT 3.53 10^6/uL (3.80-5.50); RED CELL DISTRIBUTION WIDTH 13.9 % (11.5-14.5); WHITE BLOOD CELL COUNT,WBC 5.45 10^3/uL (5.00-10.00)
[2024-08-14 08:01] LABS: ANION GAP 14.7 mmol/L (5-15); CARBON DIOXIDE,CO2 24.7 mmol/L (21.0-32.0); CREATININE 0.66 mg/dL (0.51-1.17); EST CRCL DRUG DOSING (CG) 85.5 mL/min; POTASSIUM,K 3.4 mmol/L (3.5-5.1)
[2024-08-14] MEDS: Potassium Chloride 20 MEQ in Premix Bag 1 BAG IV ONE (09:26)
[2024-08-14] MEDS: Magnesium Sulfate/Water Premix 2 GM in Premix Bag 1 BAG IV ONE (09:26)
[2024-08-14] MEDS: Sodium Chloride 0.9% 250 ML IV SCH (09:26)
[2024-08-14] MEDS: Ondansetron 4 MG/2 ML SDV IV PRN (09:58)
[2024-08-14] MEDS ORDERED: hydrOXYzine HCl 25 MG Tab PO PRN (10:01)
[2024-08-14] MEDS ORDERED: Albuterol 0.083% 2.5 MG/3 ML Neb Soln INH PRN (10:26)
[2024-08-14] MEDS: Pantoprazole 40 MG Tab.CR PO SCH (10:44)
[2024-08-14 15:05] LABS: HEMOGLOBIN A1C 5.4 % (4.3-5.7)
[2024-08-14 15:24] LABS: ALBUMIN 3.26 g/dL (3.40-5.00); ANION GAP 14.3 mmol/L (5-15); BILIRUBIN TOTAL 2.1 mg/dL (0.2-1.0); CARBON DIOXIDE,CO2 23.5 mmol/L (21.0-32.0); CREATININE 0.68 mg/dL (0.51-1.17); EST CRCL DRUG DOSING (CG) 82.99 mL/min; POTASSIUM,K 3.8 mmol/L (3.5-5.1); PROTEIN TOTAL,TP 6.6 g/dL (6.4-8.2); TSH ULTRASENSITIVE 1.584 uIU/mL (0.340-4.820)
[2024-08-14] MEDS: Metoclopramide 10 MG Tab PO SCH (16:53)
[2024-08-14] MEDS: Formoterol/Mometasone 200-5 MCG 8.8 GM Inhaler INH SCH (21:27)
[2024-08-14] MEDS: Lactulose Soln 10 GM/15 ML 30 ML UD Cup PO ONE (21:56)
[2024-08-14] MEDS: Non-Formulary Medication 1 Each (Lactulose [Lactulose] 10 GM/15 ML Solution) PO SCH (22:11)
[2024-08-15 07:47] LABS: BASOPHILS ABSOLUTE AUTO 0.05 10^3/uL (0.00-0.10); BASOPHILS PERCENT AUTO 0.9 % (0.0-1.0); EOSINOPHILS ABSOLUTE AUTO 0.25 10^3/uL (0.10-0.30); EOSINOPHILS PERCENT AUTO 4.6 % (1.0-3.0); HEMATOCRIT 37.8 % (37.0-47.0); HEMOGLOBIN 12.7 g/dL (12.0-16.0); IMMATURE GRAN ABSOLUTE AUTO 0.01 10^3/uL (0.00-0.50); IMMATURE GRAN PERCENT AUTO 0.2 % (0.0-5.0); LYMPHOCYTES ABSOLUTE AUTO 1.48 10^3/uL (1.00-4.00); LYMPHOCYTES PERCENT AUTO 27.4 % (20.0-40.0); MEAN CORPUSCULAR HEMOGLOBIN 32.2 pg (27.0-31.0); MEAN CORPUSCULAR HGB CONC 33.6 g/dL (32.0-36.0); MEAN CORPUSCULAR VOLUME 95.7 fL (82.0-92.0); MEAN PLATELET VOLUME 9.3 fL (7.4-10.4); MONOCYTES ABSOLUTE AUTO 0.33 10^3/uL (0.10-0.80); MONOCYTES PERCENT AUTO 6.1 % (2.0-8.0); NEUTROPHILS ABSOLUTE AUTO 3.28 10^3/uL (2.50-7.00); NEUTROPHILS PERCENT AUTO 60.8 % (50.0-70.0); PLATELET COUNT,PLT 81 10^3/uL (150-400); RED BLOOD CELL COUNT 3.95 10^6/uL (3.80-5.50); RED CELL DISTRIBUTION WIDTH 13.6 % (11.5-14.5)
[2024-08-15 08:01] LABS: ANION GAP 16.6 mmol/L (5-15); CALCIUM 7.5 mg/dL (8.7-10.3); CARBON DIOXIDE,CO2 23.8 mmol/L (21.0-32.0); CREATININE 0.55 mg/dL (0.51-1.17); EST CRCL DRUG DOSING (CG) 102.6 mL/min; MAGNESIUM 1.6 mg/dL (1.8-2.4); POTASSIUM,K 3.4 mmol/L (3.5-5.1)
[2024-08-15] MEDS: Potassium Chloride 10 MEQ Tab.ER PO SCH (08:47)
[2024-08-15] MEDS: FLUoxetine 10 MG Cap PO SCH (08:47)
[2024-08-15] MEDS: Lactulose Soln 10 GM/15 ML 30 ML UD Cup PO SCH (08:48)
[2024-08-15] MEDS ORDERED: Non-Formulary Medication 1 Each (Magnesium Chloride [Magnesium] 64 MG Tablet) PO SCH (09:00)
[2024-08-15] MEDS: Magnesium Sulfate/Water Premix 2 GM in Premix Bag 1 BAG IV ONE (09:27)
[2024-08-15] MEDS: Potassium Chloride 20 MEQ Tab.ER PO SCH (09:27)
[2024-08-15 11:25] VITALS: BP 132/86; PULSE 67
== END 2024-08-15 11:40 | disposition home or self-care (01) ==
LOC: KA.ED 16:20 → KA.MS 20:35
PROVIDERS: ADMIT Internal Medicine; ATTEND Internal Medicine
DX: R10.84 Generalized abdominal pain (principal); R11.10 Vomiting, unspecified; E87.6 Hypokalemia; E87.1 Hypo-osmolality and hyponatremia; E87.20 Acidosis, unspecified; F10.929 Alcohol use, unspecified with intoxication, unspecified; E11.9 Type 2 diabetes mellitus without complications; K21.9 Gastro-esophageal reflux disease without esophagitis; E78.00 Pure hypercholesterolemia, unspecified; J45.909 Unspecified asthma, uncomplicated; Z79.899 Other long term (current) drug therapy; Z88.0 Allergy status to penicillin; Z88.1 Allergy status to other antibiotic agents
CPT/HCPCS: 36415; 74150; 80048; 80053; 80061; 80307; 83036; 83605; 83690; 83735; 84132; 84443; 85025; 85027; 96365; 96366; 96368; 96375; 99223-GT; 99233-GT; 99239-GT; 99284-25; A9270-GY; J1885; J2405; J3475; J3480; J3490; J7030; J7050; J7120; Q3014

== ENCOUNTER 2024-08-26 16:09 | Observation (INO) | payer MEDICAID ==
[2024-08-26 16:32] LABS: BASOPHILS ABSOLUTE AUTO 0.19 10^3/uL (0.00-0.10); EOSINOPHILS ABSOLUTE AUTO 0.18 10^3/uL (0.10-0.30); EOSINOPHILS PERCENT AUTO 1.9 % (1.0-3.0); HEMATOCRIT 45.2 % (37.0-47.0); HEMOGLOBIN 15.7 g/dL (12.0-16.0); IMMATURE GRAN ABSOLUTE AUTO 0.03 10^3/uL (0.00-0.50); IMMATURE GRAN PERCENT AUTO 0.3 % (0.0-5.0); LYMPHOCYTES ABSOLUTE AUTO 5.11 10^3/uL (1.00-4.00); LYMPHOCYTES PERCENT AUTO 53.3 % (20.0-40.0); MEAN CORPUSCULAR HEMOGLOBIN 31.9 pg (27.0-31.0); MEAN CORPUSCULAR HGB CONC 34.7 g/dL (32.0-36.0); MEAN CORPUSCULAR VOLUME 91.9 fL (82.0-92.0); MEAN PLATELET VOLUME 8.8 fL (7.4-10.4); MONOCYTES ABSOLUTE AUTO 0.35 10^3/uL (0.10-0.80); MONOCYTES PERCENT AUTO 3.7 % (2.0-8.0); NEUTROPHILS ABSOLUTE AUTO 3.72 10^3/uL (2.50-7.00); NEUTROPHILS PERCENT AUTO 38.8 % (50.0-70.0); PLATELET COUNT,PLT 435 10^3/uL (150-400); RED BLOOD CELL COUNT 4.92 10^6/uL (3.80-5.50); RED CELL DISTRIBUTION WIDTH 13.6 % (11.5-14.5); WHITE BLOOD CELL COUNT,WBC 9.58 10^3/uL (5.00-10.00)
[2024-08-26] MEDS: Sodium Chloride 0.9% 1,000 ML IV ONE (16:34)
[2024-08-26 16:38] LABS: ALBUMIN 4.13 g/dL (3.40-5.00); ANION GAP 23.9 mmol/L (5-15); BILIRUBIN TOTAL 0.9 mg/dL (0.2-1.0); CALCIUM 8.3 mg/dL (8.7-10.3); CARBON DIOXIDE,CO2 19.6 mmol/L (21.0-32.0); CREATININE 0.5 mg/dL (0.51-1.17); EST CRCL DRUG DOSING (CG) 107.43 mL/min; MAGNESIUM 1.6 mg/dL (1.8-2.4); POTASSIUM,K 3.5 mmol/L (3.5-5.1); PROTEIN TOTAL,TP 8.8 g/dL (6.4-8.2)
[2024-08-26] MEDS: Magnesium Sulfate/Water Premix 2 GM in Premix Bag 1 BAG IV ONE (17:22)
[2024-08-26] MEDS: Ondansetron 4 MG/2 ML SDV IVPUSH ONE (18:05)
[2024-08-26 19:07] LABS: AMPHETAMINES SCREEN, URINE NEGATIVE (NEGATIVE); BARBITURATE SCREEN,URINE NEGATIVE (NEGATIVE); BENZODIAZEPINES SCREEN,URINE NEGATIVE (NEGATIVE); COCAINE METABOLITES,URINE NEGATIVE (NEGATIVE); METHADONE SCREEN, URINE NEGATIVE (NEGATIVE); METHAMPHETAMINES SCREEN, URINE NEGATIVE (NEGATIVE); OXYCODONE SCREEN,URINE NEGATIVE (NEGATIVE); PCP SCREEN,URINE NEGATIVE (NEGATIVE); TCA SCREEN,URINE NEGATIVE (NEGATIVE); THC SCREEN,URINE 50 NG/ML POSITIVE (NEGATIVE)
[2024-08-26] MEDS ORDERED: Albuterol 8 GM Inhaler INH PRN (22:47)
[2024-08-26] MEDS ORDERED: Non-Formulary Medication 1 Each (Prazosin Hcl [Prazosin] 1 MG Capsule) PO PRN (22:47)
[2024-08-26] MEDS ORDERED: hydrOXYzine HCl 25 MG Tab PO PRN (22:47)
[2024-08-26] MEDS ORDERED: Sodium Chloride 0.9% 150 ML Bag IV ONE (23:00)
[2024-08-26] MEDS: Lactulose Soln 10 GM/15 ML 30 ML UD Cup PO SCH (23:44)
[2024-08-26] MEDS: ARIPiprazole 5 MG Tab PO SCH (23:44)
[2024-08-27] MEDS: ARIPiprazole 5 MG Tab ONE (00:19)
[2024-08-27] MEDS: Lactulose Soln 10 GM/15 ML 30 ML UD Cup ONE (00:19)
[2024-08-27] MEDS ORDERED: Sodium Chloride 0.9% 10 ML Syringe FLUSH PRN (02:00)
[2024-08-27] MEDS: Sodium Chloride 0.9% 1,000 ML IV SCH (02:07)
[2024-08-27] MEDS ORDERED: hydrOXYzine HCl 25 MG Tab PO PRN (04:10)
[2024-08-27] MEDS: Ondansetron 4 MG/2 ML SDV IV PRN (05:35)
[2024-08-27 07:27] LABS: BASOPHILS ABSOLUTE AUTO 0.11 10^3/uL (0.00-0.10); BASOPHILS PERCENT AUTO 1.5 % (0.0-1.0); EOSINOPHILS ABSOLUTE AUTO 0.11 10^3/uL (0.10-0.30); EOSINOPHILS PERCENT AUTO 1.5 % (1.0-3.0); HEMATOCRIT 36.5 % (37.0-47.0); HEMOGLOBIN 12.7 g/dL (12.0-16.0); IMMATURE GRAN ABSOLUTE AUTO 0.01 10^3/uL (0.00-0.50); IMMATURE GRAN PERCENT AUTO 0.1 % (0.0-5.0); LYMPHOCYTES ABSOLUTE AUTO 2.64 10^3/uL (1.00-4.00); LYMPHOCYTES PERCENT AUTO 35.1 % (20.0-40.0); MEAN CORPUSCULAR HEMOGLOBIN 32.6 pg (27.0-31.0); MEAN CORPUSCULAR HGB CONC 34.8 g/dL (32.0-36.0); MEAN CORPUSCULAR VOLUME 93.6 fL (82.0-92.0); MEAN PLATELET VOLUME 8.7 fL (7.4-10.4); MONOCYTES ABSOLUTE AUTO 0.41 10^3/uL (0.10-0.80); MONOCYTES PERCENT AUTO 5.5 % (2.0-8.0); NEUTROPHILS ABSOLUTE AUTO 4.24 10^3/uL (2.50-7.00); NEUTROPHILS PERCENT AUTO 56.3 % (50.0-70.0); PLATELET COUNT,PLT 332 10^3/uL (150-400); RED CELL DISTRIBUTION WIDTH 13.6 % (11.5-14.5); WHITE BLOOD CELL COUNT,WBC 7.52 10^3/uL (5.00-10.00)
[2024-08-27 07:31] LABS: APPEARANCE,URINE CLEAR (CLEAR); BILIRUBIN,URINE NEGATIVE (NEGATIVE); COLOR,URINE YELLOW (YELLOW); GLUCOSE,URINE NEGATIVE (NEGATIVE); KETONES,URINE 80 mg/dL (NEGATIVE); LEUKOCYTE ESTERASE,URINE NEGATIVE (NEGATIVE); NITRITE,URINE NEGATIVE (NEGATIVE); OCCULT BLOOD,URINE NEGATIVE (NEGATIVE); PROTEIN,URINE NEGATIVE (NEGATIVE)
[2024-08-27 07:40] LABS: BACTERIA,URINE RARE /HPF (NONE TO FEW); EPITHELIAL CELLS,URINE RARE /LPF; MUCUS,URINE RARE /LPF (NEGATIVE); RBC,URINE 0-5 /HPF (0-5); WBC,URINE 0-5 /HPF (0-5)
[2024-08-27 07:48] LABS: ALBUMIN 3.35 g/dL (3.40-5.00); ANION GAP 20.3 mmol/L (5-15); BILIRUBIN TOTAL 0.9 mg/dL (0.2-1.0); CARBON DIOXIDE,CO2 21.2 mmol/L (21.0-32.0); CREATININE 0.45 mg/dL (0.51-1.17); EST CRCL DRUG DOSING (CG) 119.37 mL/min; MAGNESIUM 1.4 mg/dL (1.8-2.4); POTASSIUM,K 3.5 mmol/L (3.5-5.1); PROTEIN TOTAL,TP 6.8 g/dL (6.4-8.2)
[2024-08-27 07:55] LABS: CALCIUM 6.9 mg/dL (8.7-10.3)
[2024-08-27] MEDS ORDERED: LORazepam 0.5 MG Tab PO PRN (10:53)
[2024-08-27] MEDS: Pantoprazole 40 MG Vial IVPUSH SCH (11:00)
[2024-08-27] MEDS ORDERED: Dextrose 5%-0.9% NaCl with KCl 1,000 ML IV SCH (11:00)
[2024-08-27] MEDS: Ketorolac 30 MG/ML SDV IVPUSH PRN (11:11)
[2024-08-27] MEDS: Metoclopramide 10 MG/2 ML SDV IVPUSH PRN (11:13)
[2024-08-27] MEDS: Naltrexone 50 MG Tab PO SCH (12:17)
[2024-08-27] MEDS: Magnesium Oxide 500 MG Tab PO SCH (12:17)
[2024-08-27] MEDS: Thiamine 100 MG Tab PO SCH (12:18)
[2024-08-27] MEDS: FLUoxetine 10 MG Cap PO SCH (12:18)
[2024-08-27] MEDS: Potassium Chloride 10 MEQ Tab.ER PO SCH (12:18)
[2024-08-27] MEDS: Folic Acid 1 MG Tab PO SCH (12:20)
[2024-08-27] MEDS: Enoxaparin 40 MG/0.4 ML Syringe SUBCUT SCH (12:20)
[2024-08-27] MEDS: LORazepam 0.5 MG Tab PO PRN (14:13)
[2024-08-27] MEDS: D5 1/2 NS w/ 20 mEq/L KCl 1,000 ML IV SCH (18:11)
[2024-08-27] MEDS ORDERED: Thiamine 100 MG Tab PO SCH (21:00)
[2024-08-28 07:16] LABS: ALBUMIN 3.24 g/dL (3.40-5.00); BILIRUBIN TOTAL 1.2 mg/dL (0.2-1.0); CALCIUM 7.4 mg/dL (8.7-10.3); CARBON DIOXIDE,CO2 22.4 mmol/L (21.0-32.0); CREATININE 0.47 mg/dL (0.51-1.17); EST CRCL DRUG DOSING (CG) 114.29 mL/min; POTASSIUM,K 3.4 mmol/L (3.5-5.1); PROTEIN TOTAL,TP 6.5 g/dL (6.4-8.2)
[2024-08-28 11:16] VITALS: BP 134/77; PULSE 64
== END 2024-08-28 12:51 | disposition home or self-care (01) ==
LOC: KA.ED 16:09 → KA.MS 18:44
PROVIDERS: ADMIT Internal Medicine; ATTEND Internal Medicine
DX: F10.129 Alcohol abuse with intoxication, unspecified (principal); E78.00 Pure hypercholesterolemia, unspecified; E11.9 Type 2 diabetes mellitus without complications; F31.9 Bipolar disorder, unspecified; K21.9 Gastro-esophageal reflux disease without esophagitis; Z79.899 Other long term (current) drug therapy; Z88.0 Allergy status to penicillin; Z88.1 Allergy status to other antibiotic agents
CPT/HCPCS: 36415; 80053; 80305-QW; 80307; 81001; 82140; 83690; 83735; 85025; 96361; 96365; 96372; 96375; 96376; 99223-GT; 99284; 99285-25; A9270-GY; G0378; J1650; J1885; J2405; J2470; J2765; J3475; J3480; J7030; Q3014

== ENCOUNTER 2024-09-06 21:23 | Observation (INO) | payer MEDICAID ==
[2024-09-06 22:10] LABS: BASOPHILS ABSOLUTE AUTO 0.07 10^3/uL (0.00-0.10); BASOPHILS PERCENT AUTO 1.2 % (0.0-1.0); EOSINOPHILS ABSOLUTE AUTO 0.03 10^3/uL (0.10-0.30); EOSINOPHILS PERCENT AUTO 0.5 % (1.0-3.0); HEMATOCRIT 41.5 % (37.0-47.0); HEMOGLOBIN 14.6 g/dL (12.0-16.0); IMMATURE GRAN ABSOLUTE AUTO 0.01 10^3/uL (0.00-0.50); IMMATURE GRAN PERCENT AUTO 0.2 % (0.0-5.0); LYMPHOCYTES ABSOLUTE AUTO 2.36 10^3/uL (1.00-4.00); LYMPHOCYTES PERCENT AUTO 38.9 % (20.0-40.0); MEAN CORPUSCULAR HEMOGLOBIN 32.2 pg (27.0-31.0); MEAN CORPUSCULAR HGB CONC 35.2 g/dL (32.0-36.0); MEAN CORPUSCULAR VOLUME 91.6 fL (82.0-92.0); MEAN PLATELET VOLUME 9.5 fL (7.4-10.4); MONOCYTES ABSOLUTE AUTO 0.31 10^3/uL (0.10-0.80); MONOCYTES PERCENT AUTO 5.1 % (2.0-8.0); NEUTROPHILS ABSOLUTE AUTO 3.28 10^3/uL (2.50-7.00); NEUTROPHILS PERCENT AUTO 54.1 % (50.0-70.0); PLATELET COUNT,PLT 174 10^3/uL (150-400); RED BLOOD CELL COUNT 4.53 10^6/uL (3.80-5.50); RED CELL DISTRIBUTION WIDTH 13.4 % (11.5-14.5); WHITE BLOOD CELL COUNT,WBC 6.06 10^3/uL (5.00-10.00)
[2024-09-06] MEDS: Sodium Chloride 0.9% 1,000 ML IV ONE (22:14)
[2024-09-06 22:27] LABS: ALANINE AMINOTRANSFERASE,ALT 53 U/L (14-63); ALBUMIN 4.33 g/dL (3.40-5.00); ALKALINE PHOSPHATASE 80 U/L (46-116); ANION GAP 19.7 mmol/L (5-15); ASPARTATE AMNIOTRANSFERASE,AST 143 U/L (15-37); BILIRUBIN TOTAL 1.4 mg/dL (0.2-1.0); BLOOD UREA NITROGEN,BUN 2 mg/dL (7-18); CALCIUM 7.7 mg/dL (8.7-10.3); CARBON DIOXIDE,CO2 24.4 mmol/L (21.0-32.0); CHLORIDE,CL 100 mmol/L (98-107); CREATININE 0.55 mg/dL (0.51-1.17); GLUCOSE RANDOM 98 mg/dL (70-140); MAGNESIUM 1.2 mg/dL (1.8-2.4); POTASSIUM,K 3.1 mmol/L (3.5-5.1); PROTEIN TOTAL,TP 8.3 g/dL (6.4-8.2); SODIUM,NA 141 mmol/L (136-145)
[2024-09-06 22:29] LABS: ESTIMATED GFR 119 mL/min (>=60)
[2024-09-06 22:30] LABS: ETHANOL BLOOD MEDICAL 437 mg/dL (<3)
[2024-09-06 22:37] LABS: APPEARANCE,URINE CLEAR (CLEAR); BILIRUBIN,URINE NEGATIVE (NEGATIVE); GLUCOSE,URINE NEGATIVE (NEGATIVE); KETONES,URINE NEGATIVE (NEGATIVE); LEUKOCYTE ESTERASE,URINE NEGATIVE (NEGATIVE); NITRITE,URINE NEGATIVE (NEGATIVE); PROTEIN,URINE 30 mg/dL (NEGATIVE); UROBILINOGEN,URINE 0.2 E.U./dL (0.2-1.0)
[2024-09-06 22:38] LABS: OCCULT BLOOD,URINE SMALL (NEGATIVE)
[2024-09-06 22:39] LABS: COLOR,URINE OTHER (YELLOW)
[2024-09-06 22:40] LABS: AMPHETAMINES SCREEN, URINE NEGATIVE (NEGATIVE); BACTERIA,URINE RARE /HPF (NONE TO FEW); EPITHELIAL CELLS,URINE RARE /LPF; WBC,URINE 0-5 /HPF (0-5)
[2024-09-06 22:41] LABS: BARBITURATE SCREEN,URINE NEGATIVE (NEGATIVE); BENZODIAZEPINES SCREEN,URINE NEGATIVE (NEGATIVE); COCAINE METABOLITES,URINE NEGATIVE (NEGATIVE); METHADONE SCREEN, URINE NEGATIVE (NEGATIVE); METHAMPHETAMINES SCREEN, URINE NEGATIVE (NEGATIVE); OXYCODONE SCREEN,URINE NEGATIVE (NEGATIVE); PCP SCREEN,URINE NEGATIVE (NEGATIVE); TCA SCREEN,URINE NEGATIVE (NEGATIVE); THC SCREEN,URINE 50 NG/ML POSITIVE (NEGATIVE)
[2024-09-06] MEDS: LORazepam 2 MG/ML SDV IVPUSH ONE (23:25)
[2024-09-07] MEDS: LORazepam 2 MG/ML SDV IVPUSH ONE ×2 (00:41→05:52)
[2024-09-07] MEDS ORDERED: Nicotine 21 MG/24 Hr Patch ONE (01:32)
[2024-09-07] MEDS: Nicotine 21 MG/24 Hr Patch TRDERM ONE (01:37)
[2024-09-07] MEDS: Magnesium Sulfate/Water Premix 2 GM in Premix Bag 1 BAG IV ONE (02:08)
[2024-09-07] MEDS ORDERED: Albuterol/Ipratropium 3.0-0.5 MG/3 ML Neb Soln NEB PRN (02:33)
[2024-09-07] MEDS ORDERED: Ondansetron 4 MG Tab.DIS PO PRN (02:33)
[2024-09-07] MEDS ORDERED: Acetaminophen 325 MG Tab PO PRN (02:33)
[2024-09-07] MEDS ORDERED: Ondansetron 4 MG/2 ML SDV IVPUSH PRN (02:35)
[2024-09-07] MEDS ORDERED: Lactated Ringers 1,000 ML IV SCH (02:45)
[2024-09-07] MEDS: Potassium Chloride 20 MEQ in Premix Bag 1 BAG IV ONE (04:15)
[2024-09-07] MEDS: LORazepam 2 MG/ML SDV IV SCH (05:52)
[2024-09-07] MEDS: Sodium Chloride 0.9% 1,000 ML IV ONE (07:57)
[2024-09-07] MEDS ORDERED: Albuterol 8 GM Inhaler INH PRN (09:02)
[2024-09-07] MEDS: Folic Acid 1 MG Tab PO SCH (09:22)
[2024-09-07] MEDS: Thiamine 100 MG Tab PO SCH (09:22)
[2024-09-07 10:37] VITALS: BP 116/71; PULSE 74
[2024-09-07] MEDS ORDERED: ARIPiprazole 5 MG Tab PO SCH (21:00)
[2024-09-08] MEDS ORDERED: Folic Acid 1 MG Tab PO SCH (09:00)
[2024-09-08] MEDS ORDERED: FLUoxetine 10 MG Cap PO SCH (09:00)
== END 2024-09-07 16:12 | disposition left against medical advice (07) ==
LOC: KA.ED 21:23 → KA.MS 09-07 01:52
PROVIDERS: ADMIT Physician Assistant Surgical; ATTEND Hospitalist
DX: F10.129 Alcohol abuse with intoxication, unspecified (principal); E87.6 Hypokalemia; E83.42 Hypomagnesemia; Z79.899 Other long term (current) drug therapy
CPT/HCPCS: 36415; 80053; 80305-QW; 80307; 81001; 82140; 83735; 85025; 96361; 96365; 96366; 96367; 96374; 96375; 96376; 99284; 99285-25; A9270-GY; G0378; J2060; J3475; J3480; J7030; Q3014

== ENCOUNTER 2024-10-29 23:32 | Emergency (ER) | payer MEDICAID ==
[2024-10-30] MEDS: Sodium Chloride 0.9% 1,000 ML IV ONE ×2 (00:10→01:09)
[2024-10-30] MEDS: Ondansetron 4 MG/2 ML SDV IVPUSH ONE (00:10)
[2024-10-30 00:17] LABS: BASOPHILS ABSOLUTE AUTO 0.03 10^3/uL (0.00-0.10); BASOPHILS PERCENT AUTO 0.5 % (0.0-1.0); EOSINOPHILS ABSOLUTE AUTO 0.12 10^3/uL (0.10-0.30); EOSINOPHILS PERCENT AUTO 1.9 % (1.0-3.0); HEMATOCRIT 43.8 % (37.0-47.0); HEMOGLOBIN 15.6 g/dL (12.0-16.0); IMMATURE GRAN ABSOLUTE AUTO 0.01 10^3/uL (0.00-0.04); IMMATURE GRAN PERCENT AUTO 0.2 % (0.0-0.4); LYMPHOCYTES ABSOLUTE AUTO 1.57 10^3/uL (1.00-4.00); MEAN CORPUSCULAR HEMOGLOBIN 33.9 pg (27.0-31.0); MEAN CORPUSCULAR HGB CONC 35.6 g/dL (32.0-36.0); MEAN CORPUSCULAR VOLUME 95.2 fL (82.0-92.0); MONOCYTES ABSOLUTE AUTO 0.46 10^3/uL (0.10-0.80); MONOCYTES PERCENT AUTO 7.3 % (2.0-8.0); NEUTROPHILS PERCENT AUTO 65.1 % (50.0-70.0); PLATELET COUNT,PLT 129 10^3/uL (150-400); RED CELL DISTRIBUTION WIDTH 14.5 % (11.5-14.5); WHITE BLOOD CELL COUNT,WBC 6.29 10^3/uL (5.00-10.00)
[2024-10-30 00:33] LABS: ALBUMIN 4.26 g/dL (3.40-5.00); ANION GAP 27.4 mmol/L (5-15); CALCIUM 8.9 mg/dL (8.7-10.3); CARBON DIOXIDE,CO2 21.6 mmol/L (21.0-32.0); CREATININE 0.56 mg/dL (0.51-1.17); EST CRCL DRUG DOSING (CG) 95.92 mL/min; MAGNESIUM 1.4 mg/dL (1.8-2.4)
[2024-10-30] MEDS: Haloperidol Lactate 5 MG/ML SDV IM ONE (00:48)
[2024-10-30] MEDS: Potassium Chloride 20 MEQ in Premix Bag 1 BAG IV ONE (00:56)
[2024-10-30] MEDS: Magnesium Sulfate/Water Premix 2 GM in Premix Bag 1 BAG IV ONE (00:57)
[2024-10-30 03:03] VITALS: BP 109/73; PULSE 74
== END 2024-10-30 03:15 | disposition home or self-care (01) ==
LOC: KA.ED 23:32
DX: R11.10 Vomiting, unspecified (principal); E87.6 Hypokalemia; E83.42 Hypomagnesemia; I25.2 Old myocardial infarction; E66.9 Obesity, unspecified; E11.9 Type 2 diabetes mellitus without complications; F17.210 Nicotine dependence, cigarettes, uncomplicated; Z88.0 Allergy status to penicillin; Z88.1 Allergy status to other antibiotic agents; Z91.011 Allergy to milk products; Z79.899 Other long term (current) drug therapy; Z68.27 Body mass index [BMI] 27.0-27.9, adult
CPT/HCPCS: 80053; 80307; 82140; 83735; 85025; 96361; 96365; 96366; 96368; 96372; 96375; 99284; J1630; J2405; J3475; J3480; J7030

== ENCOUNTER 2024-11-16 12:00 | Observation (INO) | payer MEDICAID ==
[2024-11-16] MEDS ORDERED: Acetaminophen 325 MG Tab PO PRN (12:55)
[2024-11-16] MEDS ORDERED: Ondansetron 4 MG/2 ML SDV IV PRN (12:55)
[2024-11-16] MEDS: Potassium Chloride 20 MEQ Tab.ER PO SCH (13:49)
[2024-11-16] MEDS ORDERED: Potassium Chloride 20 MEQ in Premix Bag 1 BAG IV ONE (13:55)
[2024-11-16] MEDS: Sodium Chloride 0.9% 1,000 ML IV SCH (13:55)
[2024-11-16] MEDS: Potassium Chloride 20 MEQ in Premix Bag 1 BAG IV ONE ×4 (13:57→20:12)
[2024-11-16] MEDS: Magnesium Sulf/Wat 2 GM/50 mL 2 GM in Premix Bag 1 BAG IV ONE (13:59)
[2024-11-16] MEDS ORDERED: Potassium Chloride 10 MEQ Tab.ER PO SCH (14:00)
[2024-11-16] MEDS ORDERED: Loperamide 2 MG Cap PO PRN (14:00)
[2024-11-16] MEDS ORDERED: Albuterol 8 GM Inhaler INH PRN (14:00)
[2024-11-16] MEDS: Potassium Chloride 80 MEQ in Premix Bag 1 BAG IV ONE (14:03)
[2024-11-16] MEDS: Levofloxacin/Dextrose 5%-Water 500 MG in Premix Bag 1 BAG IV SCH (16:05)
[2024-11-16] MEDS: Sodium Chloride 0.9% 50 ML IV SCH (16:06)
[2024-11-16] MEDS: chlordiazePOXIDE 25 MG Cap PO SCH (20:12)
[2024-11-16] MEDS ORDERED: ARIPIPRAZOLE 30 MG PO SCH (21:00)
[2024-11-17 07:56] LABS: ALBUMIN 2.45 g/dL (3.40-5.00); BILIRUBIN TOTAL 4.2 mg/dL (0.2-1.0); CALCIUM 7.6 mg/dL (8.7-10.3); CARBON DIOXIDE,CO2 28.8 mmol/L (21.0-32.0); CREATININE 0.52 mg/dL (0.51-1.17); EST CRCL DRUG DOSING (CG) 103.3 mL/min; MAGNESIUM 1.8 mg/dL (1.8-2.4); POTASSIUM,K 2.8 mmol/L (3.5-5.1); PROTEIN TOTAL,TP 5.9 g/dL (6.4-8.2)
[2024-11-17] MEDS: FLUoxetine 10 MG Cap PO SCH (08:34)
[2024-11-17] MEDS: Folic Acid 1 MG Tab PO SCH (08:34)
[2024-11-17] MEDS: Potassium Chloride 20 MEQ in Premix Bag 1 BAG IV SCH (11:32)
[2024-11-17] MEDS: Sodium Chloride 0.9% 100 ML IV SCH (15:00)
[2024-11-17 16:21] LABS: ANION GAP 15.7 mmol/L (5-15); CALCIUM 8.1 mg/dL (8.7-10.3); CARBON DIOXIDE,CO2 25.3 mmol/L (21.0-32.0); CREATININE 0.48 mg/dL (0.51-1.17); EST CRCL DRUG DOSING (CG) 111.91 mL/min; MAGNESIUM 1.7 mg/dL (1.8-2.4)
[2024-11-17] MEDS: Sodium Chloride 0.9% 50 ML ONE (16:54)
[2024-11-17 17:40] VITALS: BP 102/60; PULSE 18
== END 2024-11-17 17:38 | disposition home or self-care (01) ==
LOC: KA.MS 12:00
PROVIDERS: ADMIT Internal Medicine; ATTEND Internal Medicine
DX: F10.239 Alcohol dependence with withdrawal, unspecified (principal); K70.30 Alcoholic cirrhosis of liver without ascites; R53.1 Weakness; R19.7 Diarrhea, unspecified; E11.9 Type 2 diabetes mellitus without complications; E66.9 Obesity, unspecified; E87.6 Hypokalemia; E83.42 Hypomagnesemia; F17.210 Nicotine dependence, cigarettes, uncomplicated; Z88.1 Allergy status to other antibiotic agents; Z88.8 Allergy status to other drugs, medicaments and biological substances; Z68.30 Body mass index [BMI] 30.0-30.9, adult; Z83.42 Family history of familial hypercholesterolemia; Z79.899 Other long term (current) drug therapy
CPT/HCPCS: 36415; 80048; 80053; 83630; 83735; 84132; 87045; 87046; 87505; 99223-GT; 99239-GT; A9270-GY; J1956; J3475; J3480; J3490; J7030; Q3014

== ENCOUNTER 2024-11-26 01:15 | Observation (INO) | payer MEDICAID ==
[2024-11-26] MEDS ORDERED: Sodium Chloride 0.9% 10 ML Syringe FLUSH PRN (01:33)
[2024-11-26 01:40] LABS: BASOPHILS ABSOLUTE AUTO 0.14 10^3/uL (0.00-0.10); BASOPHILS PERCENT AUTO 0.9 % (0.0-1.0); EOSINOPHILS ABSOLUTE AUTO 0.29 10^3/uL (0.10-0.30); EOSINOPHILS PERCENT AUTO 1.8 % (1.0-3.0); HEMATOCRIT 34.3 % (37.0-47.0); HEMOGLOBIN 11.6 g/dL (12.0-16.0); IMMATURE GRAN ABSOLUTE AUTO 0.07 10^3/uL (0.00-0.04); IMMATURE GRAN PERCENT AUTO 0.4 % (0.0-0.4); LYMPHOCYTES ABSOLUTE AUTO 3.47 10^3/uL (1.00-4.00); LYMPHOCYTES PERCENT AUTO 21.7 % (20.0-40.0); MEAN CORPUSCULAR HEMOGLOBIN 34.5 pg (27.0-31.0); MEAN CORPUSCULAR HGB CONC 33.8 g/dL (32.0-36.0); MEAN CORPUSCULAR VOLUME 102.1 fL (82.0-92.0); MEAN PLATELET VOLUME 8.9 fL (7.4-10.4); MONOCYTES ABSOLUTE AUTO 0.62 10^3/uL (0.10-0.80); MONOCYTES PERCENT AUTO 3.9 % (2.0-8.0); NEUTROPHILS ABSOLUTE AUTO 11.39 10^3/uL (2.50-7.00); NEUTROPHILS PERCENT AUTO 71.3 % (50.0-70.0); PLATELET COUNT,PLT 339 10^3/uL (150-400); RED BLOOD CELL COUNT 3.36 10^6/uL (3.80-5.50); RED CELL DISTRIBUTION WIDTH 19.5 % (11.5-14.5); WHITE BLOOD CELL COUNT,WBC 15.98 10^3/uL (5.00-10.00)
[2024-11-26 01:52] LABS: ALANINE AMINOTRANSFERASE,ALT 38 U/L (14-63); ALBUMIN 2.46 g/dL (3.40-5.00); ALKALINE PHOSPHATASE 161 U/L (46-116); ANION GAP 18.9 mmol/L (5-15); ASPARTATE AMNIOTRANSFERASE,AST 174 U/L (15-37); BILIRUBIN TOTAL 4.6 mg/dL (0.2-1.0); BLOOD UREA NITROGEN,BUN 4 mg/dL (7-18); CALCIUM 7.9 mg/dL (8.7-10.3); CHLORIDE,CL 103 mmol/L (98-107); GLUCOSE RANDOM 111 mg/dL (70-140); MAGNESIUM 1.7 mg/dL (1.8-2.4); POTASSIUM,K 3.9 mmol/L (3.5-5.1); PROTEIN TOTAL,TP 6.8 g/dL (6.4-8.2); SODIUM,NA 141 mmol/L (136-145)
[2024-11-26 01:59] LABS: ESTIMATED GFR 128 mL/min (>=60)
[2024-11-26 02:01] LABS: ETHANOL BLOOD MEDICAL 325 mg/dL (<3)
[2024-11-26] MEDS: Sodium Chloride 0.9% 1,000 ML IV ONE (02:30)
[2024-11-26] MEDS: LORazepam 2 MG/ML SDV IVPUSH ONE (02:41)
[2024-11-26] MEDS ORDERED: Promethazine 25 MG Tab PO PRN (04:17)
[2024-11-26] MEDS ORDERED: Lactulose Soln 10 GM/15 ML 30 ML UD Cup PO PRN (04:17)
[2024-11-26] MEDS ORDERED: hydrOXYzine HCl 25 MG Tab PO PRN (04:17)
[2024-11-26] MEDS ORDERED: Albuterol 0.083% 2.5 MG/3 ML Neb Soln NEB PRN (04:17)
[2024-11-26] MEDS ORDERED: PROCHLORPERAZINE 10 MG PO PRN (04:17)
[2024-11-26] MEDS ORDERED: Ondansetron 4 MG/2 ML SDV IV PRN (04:43)
[2024-11-26] MEDS: Magnesium Sulf/Wat 2 GM/50 mL 2 GM in Premix Bag 1 BAG IV ONE (05:54)
[2024-11-26] MEDS: Lactated Ringers 1,000 ML IV SCH (05:55)
[2024-11-26] MEDS ORDERED: Prochlorperazine 5 MG Tab PO PRN (06:04)
[2024-11-26 07:19] LABS: BASOPHILS ABSOLUTE AUTO 0.08 10^3/uL (0.00-0.10); BASOPHILS PERCENT AUTO 0.8 % (0.0-1.0); EOSINOPHILS ABSOLUTE AUTO 0.22 10^3/uL (0.10-0.30); EOSINOPHILS PERCENT AUTO 2.1 % (1.0-3.0); HEMATOCRIT 29.8 % (37.0-47.0); HEMOGLOBIN 10.2 g/dL (12.0-16.0); IMMATURE GRAN ABSOLUTE AUTO 0.04 10^3/uL (0.00-0.04); IMMATURE GRAN PERCENT AUTO 0.4 % (0.0-0.4); LYMPHOCYTES ABSOLUTE AUTO 2.55 10^3/uL (1.00-4.00); MEAN CORPUSCULAR HEMOGLOBIN 35.3 pg (27.0-31.0); MEAN CORPUSCULAR HGB CONC 34.2 g/dL (32.0-36.0); MEAN CORPUSCULAR VOLUME 103.1 fL (82.0-92.0); MONOCYTES PERCENT AUTO 4.7 % (2.0-8.0); NEUTROPHILS ABSOLUTE AUTO 7.24 10^3/uL (2.50-7.00); PLATELET COUNT,PLT 247 10^3/uL (150-400); RED BLOOD CELL COUNT 2.89 10^6/uL (3.80-5.50); RED CELL DISTRIBUTION WIDTH 19.6 % (11.5-14.5); WHITE BLOOD CELL COUNT,WBC 10.63 10^3/uL (5.00-10.00)
[2024-11-26 07:50] LABS: ANION GAP 14.5 mmol/L (5-15); CALCIUM 7.6 mg/dL (8.7-10.3); CREATININE 0.41 mg/dL (0.51-1.17); EST CRCL DRUG DOSING (CG) 131.01 mL/min; POTASSIUM,K 3.5 mmol/L (3.5-5.1)
[2024-11-26] MEDS: Formoterol/Mometasone 200-5 MCG 8.8 GM Inhaler INH SCH (08:40)
[2024-11-26] MEDS: Gabapentin 100 MG Cap PO SCH (08:40)
[2024-11-26] MEDS: Pantoprazole 40 MG Tab.CR PO SCH (08:40)
[2024-11-26] MEDS: Potassium Chloride 10 MEQ Tab.ER PO SCH (08:40)
[2024-11-26] MEDS: FLUoxetine 10 MG Cap PO SCH (08:40)
[2024-11-26] MEDS: Folic Acid 1 MG Tab PO SCH (08:40)
[2024-11-26] MEDS: oxyCODONE 5 MG Tab PO PRN (10:23)
[2024-11-26] MEDS: Magnesium Oxide 500 MG Tab PO SCH (11:07)
[2024-11-26] MEDS: Iopamidol 755 Mg/ML 100 ML Bottle IV ONE (11:42)
[2024-11-26] MEDS: Sodium Chloride 0.9% 50 ML IV ONE (11:43)
[2024-11-26] MEDS ORDERED: cefTRIAXone 2 GM in Sodium Chloride 0.9% 50 ML IV SCH (12:30)
[2024-11-26] MEDS: cefTRIAXone 2 GM Vial IVPUSH SCH (13:15)
[2024-11-26] MEDS ORDERED: LORazepam 0.5 MG Tab PO PRN (15:35)
[2024-11-26] MEDS: HYDROmorphone 1 MG/ML Syringe IVPUSH PRN (16:06)
[2024-11-27 07:23] LABS: BASOPHILS ABSOLUTE AUTO 0.07 10^3/uL (0.00-0.10); BASOPHILS PERCENT AUTO 0.6 % (0.0-1.0); EOSINOPHILS ABSOLUTE AUTO 0.21 10^3/uL (0.10-0.30); EOSINOPHILS PERCENT AUTO 1.9 % (1.0-3.0); HEMATOCRIT 29.1 % (37.0-47.0); HEMOGLOBIN 10.1 g/dL (12.0-16.0); IMMATURE GRAN ABSOLUTE AUTO 0.03 10^3/uL (0.00-0.04); IMMATURE GRAN PERCENT AUTO 0.3 % (0.0-0.4); LYMPHOCYTES ABSOLUTE AUTO 1.73 10^3/uL (1.00-4.00); LYMPHOCYTES PERCENT AUTO 15.4 % (20.0-40.0); MEAN CORPUSCULAR HEMOGLOBIN 35.9 pg (27.0-31.0); MEAN CORPUSCULAR HGB CONC 34.7 g/dL (32.0-36.0); MEAN CORPUSCULAR VOLUME 103.6 fL (82.0-92.0); MEAN PLATELET VOLUME 8.8 fL (7.4-10.4); MONOCYTES ABSOLUTE AUTO 0.42 10^3/uL (0.10-0.80); MONOCYTES PERCENT AUTO 3.7 % (2.0-8.0); NEUTROPHILS ABSOLUTE AUTO 8.76 10^3/uL (2.50-7.00); NEUTROPHILS PERCENT AUTO 78.1 % (50.0-70.0); PLATELET COUNT,PLT 197 10^3/uL (150-400); RED BLOOD CELL COUNT 2.81 10^6/uL (3.80-5.50); RED CELL DISTRIBUTION WIDTH 19.1 % (11.5-14.5); WHITE BLOOD CELL COUNT,WBC 11.22 10^3/uL (5.00-10.00)
[2024-11-27 07:38] LABS: ALBUMIN 2.2 g/dL (3.40-5.00); ANION GAP 14.7 mmol/L (5-15); BILIRUBIN TOTAL 4.7 mg/dL (0.2-1.0); CALCIUM 7.6 mg/dL (8.7-10.3); CARBON DIOXIDE,CO2 23.5 mmol/L (21.0-32.0); CREATININE 0.38 mg/dL (0.51-1.17); EST CRCL DRUG DOSING (CG) 141.36 mL/min; POTASSIUM,K 4.2 mmol/L (3.5-5.1); PROTEIN TOTAL,TP 6.2 g/dL (6.4-8.2)
[2024-11-27] MEDS: Lactulose Soln 10 GM/15 ML 30 ML UD Cup PO PRN (10:54)
[2024-11-27 14:54] VITALS: BP 142/96; PULSE 97
== END 2024-11-27 15:07 ==
LOC: KA.ED 01:15 → KA.MS 02:30
PROVIDERS: ADMIT Family Medicine; ATTEND Family Medicine
DX: M79.10 Myalgia, unspecified site (principal); K70.30 Alcoholic cirrhosis of liver without ascites; E86.0 Dehydration; F10.10 Alcohol abuse, uncomplicated; I25.2 Old myocardial infarction; J45.909 Unspecified asthma, uncomplicated; K21.9 Gastro-esophageal reflux disease without esophagitis; E78.00 Pure hypercholesterolemia, unspecified; E66.9 Obesity, unspecified; E11.9 Type 2 diabetes mellitus without complications; Z88.0 Allergy status to penicillin; Z88.1 Allergy status to other antibiotic agents; Z91.011 Allergy to milk products; Z79.899 Other long term (current) drug therapy; Z68.32 Body mass index [BMI] 32.0-32.9, adult
CPT/HCPCS: 36415; 71045; 74177; 80048; 80053; 80307; 82140; 83735; 84484; 85025; 93010; 96361; 96365; 96366; 96374; 96375; 96376; 99223-GT; 99239-GT; 99284; 99285-25; A9270-GY; G0378; J0696; J1171; J2060; J3475; J3490; J7030; J7120; Q3014; Q9967

== ENCOUNTER 2024-12-05 07:40 | Emergency (ER) | payer MEDICAID ==
[2024-12-05] MEDS ORDERED: Sodium Chloride 0.9% 10 ML Syringe FLUSH PRN (08:01)
[2024-12-05] MEDS: Sodium Chloride 0.9% 1,000 ML IV ONE (08:12)
[2024-12-05] MEDS: Pantoprazole 40 MG Vial IVPUSH ONE (08:15)
[2024-12-05 08:16] LABS: BASOPHILS ABSOLUTE AUTO 0.08 10^3/uL (0.00-0.10); BASOPHILS PERCENT AUTO 0.7 % (0.0-1.0); EOSINOPHILS ABSOLUTE AUTO 0.31 10^3/uL (0.10-0.30); EOSINOPHILS PERCENT AUTO 2.8 % (1.0-3.0); HEMATOCRIT 35.7 % (37.0-47.0); IMMATURE GRAN ABSOLUTE AUTO 0.04 10^3/uL (0.00-0.04); IMMATURE GRAN PERCENT AUTO 0.4 % (0.0-0.4); LYMPHOCYTES ABSOLUTE AUTO 2.86 10^3/uL (1.00-4.00); LYMPHOCYTES PERCENT AUTO 25.8 % (20.0-40.0); MEAN CORPUSCULAR HEMOGLOBIN 35.5 pg (27.0-31.0); MEAN CORPUSCULAR HGB CONC 33.6 g/dL (32.0-36.0); MEAN CORPUSCULAR VOLUME 105.6 fL (82.0-92.0); MEAN PLATELET VOLUME 9.1 fL (7.4-10.4); MONOCYTES ABSOLUTE AUTO 0.48 10^3/uL (0.10-0.80); MONOCYTES PERCENT AUTO 4.3 % (2.0-8.0); NEUTROPHILS ABSOLUTE AUTO 7.32 10^3/uL (2.50-7.00); PLATELET COUNT,PLT 175 10^3/uL (150-400); RED BLOOD CELL COUNT 3.38 10^6/uL (3.80-5.50); RED CELL DISTRIBUTION WIDTH 17.8 % (11.5-14.5); WHITE BLOOD CELL COUNT,WBC 11.09 10^3/uL (5.00-10.00)
[2024-12-05 08:32] VITALS: BP 112/71; PULSE 91
[2024-12-05 08:39] LABS: ALANINE AMINOTRANSFERASE,ALT 37 U/L (14-63); ALBUMIN 2.48 g/dL (3.40-5.00); ALKALINE PHOSPHATASE 141 U/L (46-116); AMYLASE 17 U/L (25-125); ASPARTATE AMNIOTRANSFERASE,AST 158 U/L (15-37); BILIRUBIN TOTAL 2.3 mg/dL (0.2-1.0); C-REACTIVE PROTEIN 1.63 mg/dL (0.00-0.50); CALCIUM 8.2 mg/dL (8.7-10.3); CARBON DIOXIDE,CO2 25.6 mmol/L (21.0-32.0); CHLORIDE,CL 108 mmol/L (98-107); CREATININE 0.31 mg/dL (0.51-1.17); EST CRCL DRUG DOSING (CG) 173.28 mL/min; GLUCOSE RANDOM 131 mg/dL (70-140); LIPASE 43 U/L (16-77); POTASSIUM,K 3.6 mmol/L (3.5-5.1); PROTEIN TOTAL,TP 7.1 g/dL (6.4-8.2); SODIUM,NA 146 mmol/L (136-145)
[2024-12-05 08:40] LABS: BLOOD UREA NITROGEN,BUN 1 mg/dL (7-18); ESTIMATED GFR 136 mL/min (>=60); ETHANOL BLOOD MEDICAL 377 mg/dL (<3)
[2024-12-05 08:53] LABS: APPEARANCE,URINE CLEAR (CLEAR); BILIRUBIN,URINE NEGATIVE (NEGATIVE); GLUCOSE,URINE NEGATIVE (NEGATIVE); KETONES,URINE NEGATIVE (NEGATIVE); LEUKOCYTE ESTERASE,URINE NEGATIVE (NEGATIVE); NITRITE,URINE NEGATIVE (NEGATIVE); PROTEIN,URINE TRACE mg/dL (NEGATIVE); UROBILINOGEN,URINE 0.2 E.U./dL (0.2-1.0)
[2024-12-05 09:03] LABS: COLOR,URINE OTHER (YELLOW); OCCULT BLOOD,URINE MODERATE (NEGATIVE); RBC,URINE 20-30 /HPF (0-5)
[2024-12-05 09:04] LABS: BACTERIA,URINE OCCASIONAL /HPF (NONE TO FEW); EPITHELIAL CELLS,URINE RARE /LPF; WBC,URINE 0-5 /HPF (0-5)
[2024-12-05 09:05] LABS: AMPHETAMINES SCREEN, URINE NEGATIVE (NEGATIVE); BARBITURATE SCREEN,URINE NEGATIVE (NEGATIVE); BENZODIAZEPINES SCREEN,URINE POSITIVE (NEGATIVE); COCAINE METABOLITES,URINE NEGATIVE (NEGATIVE); METHADONE SCREEN, URINE NEGATIVE (NEGATIVE); METHAMPHETAMINES SCREEN, URINE NEGATIVE (NEGATIVE); OXYCODONE SCREEN,URINE NEGATIVE (NEGATIVE); PCP SCREEN,URINE NEGATIVE (NEGATIVE); TCA SCREEN,URINE NEGATIVE (NEGATIVE); THC SCREEN,URINE 50 NG/ML NEGATIVE (NEGATIVE)
== END 2024-12-05 09:06 | disposition home or self-care (01) ==
LOC: KA.ED 07:40
DX: K70.30 Alcoholic cirrhosis of liver without ascites (principal); F32.9 Major depressive disorder, single episode, unspecified; R10.84 Generalized abdominal pain; R74.8 Abnormal levels of other serum enzymes; R07.9 Chest pain, unspecified; R79.89 Other specified abnormal findings of blood chemistry; F10.129 Alcohol abuse with intoxication, unspecified; I25.2 Old myocardial infarction; K21.9 Gastro-esophageal reflux disease without esophagitis; E11.9 Type 2 diabetes mellitus without complications; E66.9 Obesity, unspecified; Z79.899 Other long term (current) drug therapy; Z91.148 Patient's other noncompliance with medication regimen for other reason; Z79.51 Long term (current) use of inhaled steroids; Z88.0 Allergy status to penicillin; Z88.1 Allergy status to other antibiotic agents; Z91.011 Allergy to milk products; Z68.27 Body mass index [BMI] 27.0-27.9, adult
CPT/HCPCS: 80053; 80305; 80307; 81001; 82140; 82150; 83605; 83690; 84484; 85025; 86140; 96361; 96374; 99285; J2470; J7030; 36415

== ENCOUNTER 2024-12-09 06:31 | Inpatient (IN) | payer MEDICAID ==
[2024-12-09] MEDS ORDERED: Sodium Chloride 0.9% 10 ML Syringe FLUSH PRN (06:57)
[2024-12-09 07:42] LABS: BASOPHILS ABSOLUTE AUTO 0.09 10^3/uL (0.00-0.10); BASOPHILS PERCENT AUTO 0.7 % (0.0-1.0); EOSINOPHILS ABSOLUTE AUTO 0.25 10^3/uL (0.10-0.30); EOSINOPHILS PERCENT AUTO 1.9 % (1.0-3.0); HEMOGLOBIN 11.9 g/dL (12.0-16.0); IMMATURE GRAN ABSOLUTE AUTO 0.04 10^3/uL (0.00-0.04); IMMATURE GRAN PERCENT AUTO 0.3 % (0.0-0.4); LYMPHOCYTES ABSOLUTE AUTO 2.51 10^3/uL (1.00-4.00); MEAN CORPUSCULAR HEMOGLOBIN 35.5 pg (27.0-31.0); MEAN CORPUSCULAR VOLUME 104.5 fL (82.0-92.0); MEAN PLATELET VOLUME 8.8 fL (7.4-10.4); MONOCYTES ABSOLUTE AUTO 0.39 10^3/uL (0.10-0.80); MONOCYTES PERCENT AUTO 2.9 % (2.0-8.0); NEUTROPHILS ABSOLUTE AUTO 9.95 10^3/uL (2.50-7.00); NEUTROPHILS PERCENT AUTO 75.2 % (50.0-70.0); PLATELET COUNT,PLT 195 10^3/uL (150-400); RED BLOOD CELL COUNT 3.35 10^6/uL (3.80-5.50); RED CELL DISTRIBUTION WIDTH 15.9 % (11.5-14.5); WHITE BLOOD CELL COUNT,WBC 13.23 10^3/uL (5.00-10.00)
[2024-12-09 08:04] LABS: LACTIC ACID 3.8 mmol/L (0.4-2.0)
[2024-12-09 08:08] LABS: ALANINE AMINOTRANSFERASE,ALT 43 U/L (14-63); ALBUMIN 2.88 g/dL (3.40-5.00); ALKALINE PHOSPHATASE 170 U/L (46-116); ANION GAP 18.7 mmol/L (5-15); ASPARTATE AMNIOTRANSFERASE,AST 247 U/L (15-37); BILIRUBIN TOTAL 2.6 mg/dL (0.2-1.0); CALCIUM 8.3 mg/dL (8.7-10.3); CARBON DIOXIDE,CO2 23.7 mmol/L (21.0-32.0); CHLORIDE,CL 104 mmol/L (98-107); CREATINE KINASE,CK 50 U/L (26-276); CREATININE 0.38 mg/dL (0.51-1.17); EST CRCL DRUG DOSING (CG) 141.36 mL/min; GLUCOSE RANDOM 115 mg/dL (70-140); POTASSIUM,K 3.4 mmol/L (3.5-5.1); PROTEIN TOTAL,TP 7.5 g/dL (6.4-8.2); SODIUM,NA 143 mmol/L (136-145)
[2024-12-09 08:10] LABS: BLOOD UREA NITROGEN,BUN 1 mg/dL (7-18); ESTIMATED GFR 130 mL/min (>=60); ETHANOL BLOOD MEDICAL 325 mg/dL (<3)
[2024-12-09 08:50] LABS: APPEARANCE,URINE CLEAR (CLEAR); BILIRUBIN,URINE NEGATIVE (NEGATIVE); COLOR,URINE YELLOW (YELLOW); GLUCOSE,URINE NEGATIVE (NEGATIVE); KETONES,URINE NEGATIVE (NEGATIVE); LEUKOCYTE ESTERASE,URINE NEGATIVE (NEGATIVE); NITRITE,URINE NEGATIVE (NEGATIVE); OCCULT BLOOD,URINE TRACE-LYSED (NEGATIVE); PH,URINE 6.5 (5.0-9.0); PROTEIN,URINE NEGATIVE (NEGATIVE)
[2024-12-09 09:03] LABS: EPITHELIAL CELLS,URINE FEW /LPF; WBC,URINE 0-5 /HPF (0-5)
[2024-12-09] MEDS: Sodium Chloride 0.9% 1,000 ML IV ONE (09:03)
[2024-12-09 09:04] LABS: BACTERIA,URINE RARE /HPF (NONE TO FEW)
[2024-12-09 10:15] VITALS: BP 127/82; PULSE 84
[2024-12-09] MEDS: Ondansetron 4 MG/2 ML SDV IVPUSH PRN (11:30)
[2024-12-09] MEDS ORDERED: Melatonin 3 MG Tab PO PRN (12:00)
[2024-12-09] MEDS ORDERED: Albuterol 8 GM Inhaler INH PRN (12:05)
[2024-12-09] MEDS ORDERED: hydrOXYzine HCl 25 MG Tab PO PRN (12:05)
[2024-12-09] MEDS ORDERED: Albuterol 0.083% 2.5 MG/3 ML Neb Soln NEB PRN (12:05)
[2024-12-09] MEDS ORDERED: Pantoprazole 40 MG Tab.CR PO SCH (12:15)
[2024-12-09] MEDS ORDERED: Folic Acid 1 MG Tab PO SCH (12:15)
[2024-12-09] MEDS ORDERED: Lactulose Soln 10 GM/15 ML 30 ML UD Cup PO SCH (12:15)
[2024-12-09] MEDS ORDERED: Enoxaparin 40 MG/0.4 ML Syringe SUBCUT SCH (12:15)
[2024-12-09] MEDS ORDERED: Non-Formulary Medication 1 Each (Magnesium Oxide [Magnesium] 400 MG Capsule) PO SCH (21:00)
[2024-12-09] MEDS ORDERED: Non-Formulary Medication 1 Each (Fluticasone Propion/Salmeterol [Advair 250-50 Diskus] 1 E INH SCH (21:00)
[2024-12-10] MEDS ORDERED: Non-Formulary Medication 1 Each (Fluoxetine Hcl [Prozac] 20 MG Capsule) PO SCH (09:00)
[2024-12-10] MEDS ORDERED: Potassium Chloride 10 MEQ Tab.ER PO SCH (09:00)
== END 2024-12-09 12:05 | disposition left against medical advice (07) | DRG 894 ==
LOC: KA.ED 06:31 → KA.MS 09:55
PROVIDERS: ADMIT Internal Medicine; ATTEND Internal Medicine
DX: F10.229 Alcohol dependence with intoxication, unspecified (principal); E72.20 Disorder of urea cycle metabolism, unspecified; F10.129 Alcohol abuse with intoxication, unspecified; E87.20 Acidosis, unspecified; H54.7 Unspecified visual loss; E78.00 Pure hypercholesterolemia, unspecified; Z88.0 Allergy status to penicillin; K21.9 Gastro-esophageal reflux disease without esophagitis; Z91.018 Allergy to other foods; G43.909 Migraine, unspecified, not intractable, without status migrainosus; F41.9 Anxiety disorder, unspecified; Y90.8 Blood alcohol level of 240 mg/100 ml or more; E11.9 Type 2 diabetes mellitus without complications; F17.210 Nicotine dependence, cigarettes, uncomplicated; F12.90 Cannabis use, unspecified, uncomplicated; E86.0 Dehydration; M54.6 Pain in thoracic spine; M54.2 Cervicalgia; R10.84 Generalized abdominal pain; R07.89 Other chest pain; E87.6 Hypokalemia; Z53.29 Procedure and treatment not carried out because of patient's decision for other reasons; Z90.89 Acquired absence of other organs; I25.2 Old myocardial infarction; Z87.81 Personal history of (healed) traumatic fracture; Y08.89XA Assault by other specified means, initial encounter; Z98.891 History of uterine scar from previous surgery; Z91.199 Patient's noncompliance with other medical treatment and regimen due to unspecified reason; Z88.1 Allergy status to other antibiotic agents; Z88.8 Allergy status to other drugs, medicaments and biological substances; Z79.51 Long term (current) use of inhaled steroids; Z79.899 Other long term (current) drug therapy; Z98.51 Tubal ligation status; Z98.890 Other specified postprocedural states
CPT/HCPCS: 36415; 71250; 72125; 74176; 80053; 80307; 81001; 82140; 82550; 83605; 84484; 85025; 87040; 96360; 99236-GT; 99284; 99285-25; J2405; J7030

== ENCOUNTER 2024-12-12 15:55 | Emergency (ER) | payer MEDICAID ==
[2024-12-12 16:24] LABS: BASOPHILS ABSOLUTE AUTO 0.06 10^3/uL (0.00-0.10); BASOPHILS PERCENT AUTO 0.4 % (0.0-1.0); EOSINOPHILS ABSOLUTE AUTO 0.09 10^3/uL (0.10-0.30); EOSINOPHILS PERCENT AUTO 0.6 % (1.0-3.0); HEMATOCRIT 31.7 % (37.0-47.0); HEMOGLOBIN 11.4 g/dL (12.0-16.0); IMMATURE GRAN ABSOLUTE AUTO 0.07 10^3/uL (0.00-0.04); IMMATURE GRAN PERCENT AUTO 0.5 % (0.0-0.4); LYMPHOCYTES ABSOLUTE AUTO 3.23 10^3/uL (1.00-4.00); LYMPHOCYTES PERCENT AUTO 23.1 % (20.0-40.0); MEAN CORPUSCULAR HEMOGLOBIN 36.7 pg (27.0-31.0); MEAN CORPUSCULAR VOLUME 101.9 fL (82.0-92.0); MONOCYTES ABSOLUTE AUTO 0.48 10^3/uL (0.10-0.80); MONOCYTES PERCENT AUTO 3.4 % (2.0-8.0); NEUTROPHILS ABSOLUTE AUTO 10.05 10^3/uL (2.50-7.00); PLATELET COUNT,PLT 179 10^3/uL (150-400); RED BLOOD CELL COUNT 3.11 10^6/uL (3.80-5.50); RED CELL DISTRIBUTION WIDTH 15.6 % (11.5-14.5); WHITE BLOOD CELL COUNT,WBC 13.98 10^3/uL (5.00-10.00)
[2024-12-12] MEDS: Ondansetron 4 MG/2 ML SDV IVPUSH ONE (16:25)
[2024-12-12] MEDS: Sodium Chloride 0.9% 1,000 ML IV ONE (16:25)
[2024-12-12 16:30] VITALS: BP 127/87; PULSE 102
== END 2024-12-12 16:39 | disposition left against medical advice (07) ==
LOC: KA.ED 15:55
DX: R11.2 Nausea with vomiting, unspecified (principal); I25.2 Old myocardial infarction; E78.00 Pure hypercholesterolemia, unspecified; J45.909 Unspecified asthma, uncomplicated; Z79.899 Other long term (current) drug therapy; Z88.0 Allergy status to penicillin; Z88.1 Allergy status to other antibiotic agents; Z91.011 Allergy to milk products; Z86.59 Personal history of other mental and behavioral disorders
CPT/HCPCS: 85025; 93010; 96374; 99284; 99284-25; J2405; J7030

== ENCOUNTER 2024-12-12 19:51 | Emergency (ER) | payer MEDICAID ==
[2024-12-12 20:03] LABS: BASOPHILS ABSOLUTE AUTO 0.06 10^3/uL (0.00-0.10); BASOPHILS PERCENT AUTO 0.5 % (0.0-1.0); EOSINOPHILS ABSOLUTE AUTO 0.12 10^3/uL (0.10-0.30); EOSINOPHILS PERCENT AUTO 0.9 % (1.0-3.0); HEMATOCRIT 30.2 % (37.0-47.0); HEMOGLOBIN 10.8 g/dL (12.0-16.0); IMMATURE GRAN ABSOLUTE AUTO 0.07 10^3/uL (0.00-0.04); IMMATURE GRAN PERCENT AUTO 0.5 % (0.0-0.4); LYMPHOCYTES ABSOLUTE AUTO 2.54 10^3/uL (1.00-4.00); LYMPHOCYTES PERCENT AUTO 19.2 % (20.0-40.0); MEAN CORPUSCULAR HEMOGLOBIN 36.5 pg (27.0-31.0); MEAN CORPUSCULAR HGB CONC 35.8 g/dL (32.0-36.0); MEAN PLATELET VOLUME 9.2 fL (7.4-10.4); MONOCYTES ABSOLUTE AUTO 0.68 10^3/uL (0.10-0.80); MONOCYTES PERCENT AUTO 5.1 % (2.0-8.0); NEUTROPHILS ABSOLUTE AUTO 9.77 10^3/uL (2.50-7.00); NEUTROPHILS PERCENT AUTO 73.8 % (50.0-70.0); PLATELET COUNT,PLT 160 10^3/uL (150-400); RED BLOOD CELL COUNT 2.96 10^6/uL (3.80-5.50); RED CELL DISTRIBUTION WIDTH 15.6 % (11.5-14.5); WHITE BLOOD CELL COUNT,WBC 13.24 10^3/uL (5.00-10.00)
[2024-12-12 20:08] VITALS: BP 132/107; PULSE 106
[2024-12-12 20:18] LABS: ALBUMIN 2.88 g/dL (3.40-5.00); ANION GAP 19.5 mmol/L (5-15); BILIRUBIN TOTAL 2.4 mg/dL (0.2-1.0); CARBON DIOXIDE,CO2 23.4 mmol/L (21.0-32.0); CREATININE 0.38 mg/dL (0.51-1.17); EST CRCL DRUG DOSING (CG) 141.36 mL/min; MAGNESIUM 1.3 mg/dL (1.8-2.4); POTASSIUM,K 2.9 mmol/L (3.5-5.1); PROTEIN TOTAL,TP 7.5 g/dL (6.4-8.2)
[2024-12-12] MEDS: Thiamine 100 MG Tab PO ONE (20:54)
[2024-12-12] MEDS: Folic Acid 1 MG Tab PO ONE (20:54)
[2024-12-12] MEDS: Magnesium Sulf/Wat 2 GM/50 mL 2 GM in Premix Bag 1 BAG IV ONE (20:54)
[2024-12-14] MEDS: Sodium Chloride 0.9% 0 ML ONE (13:54)
[2024-12-14] MEDS: Folic Acid 1 MG Tab ONE (13:55)
[2024-12-14] MEDS: Thiamine 100 MG Tab ONE (13:55)
== END 2024-12-12 20:40 | disposition left against medical advice (07) ==
LOC: KA.ED 19:51
DX: K70.30 Alcoholic cirrhosis of liver without ascites (principal); F10.929 Alcohol use, unspecified with intoxication, unspecified; I25.2 Old myocardial infarction; J45.909 Unspecified asthma, uncomplicated; K21.9 Gastro-esophageal reflux disease without esophagitis; E11.9 Type 2 diabetes mellitus without complications; E66.9 Obesity, unspecified; Z68.27 Body mass index [BMI] 27.0-27.9, adult; Z88.1 Allergy status to other antibiotic agents; Z88.8 Allergy status to other drugs, medicaments and biological substances; Z91.011 Allergy to milk products; Z79.51 Long term (current) use of inhaled steroids; Z79.899 Other long term (current) drug therapy; Y90.8 Blood alcohol level of 240 mg/100 ml or more
CPT/HCPCS: 80053; 80307; 82140; 83605; 83690; 83735; 85025; 99284

== ENCOUNTER 2024-12-13 19:25 | Inpatient (IN) | payer MEDICAID ==
[2024-12-13] MEDS ORDERED: Folic Acid 1 MG Tab ONE (19:46)
[2024-12-13] MEDS ORDERED: Sodium Chloride 0.9% 0 ML ONE (19:46)
[2024-12-13] MEDS ORDERED: Thiamine 100 MG Tab ONE (19:46)
[2024-12-13 19:49] LABS: BASOPHILS ABSOLUTE AUTO 0.07 10^3/uL (0.00-0.10); BASOPHILS PERCENT AUTO 0.6 % (0.0-1.0); EOSINOPHILS ABSOLUTE AUTO 0.19 10^3/uL (0.10-0.30); EOSINOPHILS PERCENT AUTO 1.8 % (1.0-3.0); HEMATOCRIT 31.6 % (37.0-47.0); HEMOGLOBIN 11.3 g/dL (12.0-16.0); IMMATURE GRAN ABSOLUTE AUTO 0.07 10^3/uL (0.00-0.04); IMMATURE GRAN PERCENT AUTO 0.6 % (0.0-0.4); LYMPHOCYTES ABSOLUTE AUTO 3.27 10^3/uL (1.00-4.00); LYMPHOCYTES PERCENT AUTO 30.3 % (20.0-40.0); MEAN CORPUSCULAR HEMOGLOBIN 36.2 pg (27.0-31.0); MEAN CORPUSCULAR HGB CONC 35.8 g/dL (32.0-36.0); MEAN CORPUSCULAR VOLUME 101.3 fL (82.0-92.0); MEAN PLATELET VOLUME 8.7 fL (7.4-10.4); MONOCYTES ABSOLUTE AUTO 0.41 10^3/uL (0.10-0.80); MONOCYTES PERCENT AUTO 3.8 % (2.0-8.0); NEUTROPHILS ABSOLUTE AUTO 6.79 10^3/uL (2.50-7.00); NEUTROPHILS PERCENT AUTO 62.9 % (50.0-70.0); PLATELET COUNT,PLT 149 10^3/uL (150-400); RED BLOOD CELL COUNT 3.12 10^6/uL (3.80-5.50); RED CELL DISTRIBUTION WIDTH 15.5 % (11.5-14.5)
[2024-12-13] MEDS: Magnesium Sulf/Wat 2 GM/50 mL 2 GM in Premix Bag 1 BAG IV ONE (20:04)
[2024-12-13 20:05] LABS: ANION GAP 19.4 mmol/L (5-15); BILIRUBIN TOTAL 2.4 mg/dL (0.2-1.0); CALCIUM 8.2 mg/dL (8.7-10.3); CARBON DIOXIDE,CO2 25.4 mmol/L (21.0-32.0); CREATININE 0.4 mg/dL (0.51-1.17); EST CRCL DRUG DOSING (CG) 134.29 mL/min; POTASSIUM,K 2.8 mmol/L (3.5-5.1); PROTEIN TOTAL,TP 7.8 g/dL (6.4-8.2)
[2024-12-13] MEDS: Lactated Ringers 1,000 ML IV SCH (20:09)
[2024-12-13] MEDS: Thiamine 100 MG Tab PO ONE (20:09)
[2024-12-13] MEDS: Folic Acid 1 MG Tab PO ONE (20:09)
[2024-12-13] MEDS ORDERED: Potassium Chloride 20 MEQ Tab.ER ONE ×2 (20:16→21:41)
[2024-12-13] MEDS: Potassium Chloride 20 MEQ Tab.ER PO ONE ×2 (20:31→21:45)
[2024-12-13] MEDS: Sodium Chloride 0.9% 100 ML ONE (20:44)
[2024-12-13] MEDS: LORazepam 2 MG/ML SDV IVPUSH ONE (20:54)
[2024-12-13] MEDS: Lactated Ringers 1,000 ML IV ONE (21:22)
[2024-12-14 00:07] LABS: INR 1.4 (0.9-1.1)
[2024-12-14] MEDS: oxyCODONE 5 MG Tab PO PRN (00:42)
[2024-12-14] MEDS: Lactated Ringers 1,000 ML IV SCH (00:43)
[2024-12-14] MEDS: Ondansetron 4 MG/2 ML SDV IV PRN (02:00)
[2024-12-14 07:26] LABS: BASOPHILS ABSOLUTE AUTO 0.03 10^3/uL (0.00-0.10); BASOPHILS PERCENT AUTO 0.5 % (0.0-1.0); EOSINOPHILS ABSOLUTE AUTO 0.19 10^3/uL (0.10-0.30); EOSINOPHILS PERCENT AUTO 2.9 % (1.0-3.0); HEMATOCRIT 26.8 % (37.0-47.0); HEMOGLOBIN 9.5 g/dL (12.0-16.0); IMMATURE GRAN ABSOLUTE AUTO 0.04 10^3/uL (0.00-0.04); IMMATURE GRAN PERCENT AUTO 0.6 % (0.0-0.4); LYMPHOCYTES ABSOLUTE AUTO 2.38 10^3/uL (1.00-4.00); LYMPHOCYTES PERCENT AUTO 36.5 % (20.0-40.0); MEAN CORPUSCULAR HEMOGLOBIN 36.7 pg (27.0-31.0); MEAN CORPUSCULAR HGB CONC 35.4 g/dL (32.0-36.0); MEAN CORPUSCULAR VOLUME 103.5 fL (82.0-92.0); MEAN PLATELET VOLUME 8.7 fL (7.4-10.4); MONOCYTES ABSOLUTE AUTO 0.34 10^3/uL (0.10-0.80); MONOCYTES PERCENT AUTO 5.2 % (2.0-8.0); NEUTROPHILS ABSOLUTE AUTO 3.54 10^3/uL (2.50-7.00); NEUTROPHILS PERCENT AUTO 54.3 % (50.0-70.0); PLATELET COUNT,PLT 107 10^3/uL (150-400); RED BLOOD CELL COUNT 2.59 10^6/uL (3.80-5.50); RED CELL DISTRIBUTION WIDTH 15.7 % (11.5-14.5); WHITE BLOOD CELL COUNT,WBC 6.52 10^3/uL (5.00-10.00)
[2024-12-14 07:42] LABS: ANION GAP 15.3 mmol/L (5-15); CALCIUM 7.6 mg/dL (8.7-10.3); CARBON DIOXIDE,CO2 26.5 mmol/L (21.0-32.0); CREATININE 0.39 mg/dL (0.51-1.17); EST CRCL DRUG DOSING (CG) 137.73 mL/min; MAGNESIUM 1.5 mg/dL (1.8-2.4); POTASSIUM,K 3.8 mmol/L (3.5-5.1)
[2024-12-14] MEDS: Lactulose Soln 10 GM/15 ML 30 ML UD Cup PO SCH (08:28)
[2024-12-14 10:40] VITALS: BP 138/92; PULSE 89
== END 2024-12-14 10:32 | disposition home or self-care (01) | DRG 432 ==
LOC: KA.ED 19:25 → KA.MS 21:42
PROVIDERS: ADMIT Nurse Practitioner Family; ATTEND Family Medicine
DX: K70.30 Alcoholic cirrhosis of liver without ascites (principal); F10.10 Alcohol abuse, uncomplicated; G93.41 Metabolic encephalopathy; E24.9 Cushing's syndrome, unspecified; R74.02 Elevation of levels of lactic acid dehydrogenase [LDH]; K80.11 Calculus of gallbladder with chronic cholecystitis with obstruction; E87.21 Acute metabolic acidosis; Z66 Do not resuscitate; E87.6 Hypokalemia; Z88.1 Allergy status to other antibiotic agents; H54.7 Unspecified visual loss; Z79.51 Long term (current) use of inhaled steroids; E78.00 Pure hypercholesterolemia, unspecified; I25.2 Old myocardial infarction; Z68.25 Body mass index [BMI] 25.0-25.9, adult; J45.909 Unspecified asthma, uncomplicated; K21.9 Gastro-esophageal reflux disease without esophagitis; G89.29 Other chronic pain; G43.909 Migraine, unspecified, not intractable, without status migrainosus; F41.9 Anxiety disorder, unspecified; F31.9 Bipolar disorder, unspecified; E11.9 Type 2 diabetes mellitus without complications; F10.229 Alcohol dependence with intoxication, unspecified; D69.6 Thrombocytopenia, unspecified; R79.89 Other specified abnormal findings of blood chemistry; E83.42 Hypomagnesemia; E66.9 Obesity, unspecified; D64.9 Anemia, unspecified; Z90.49 Acquired absence of other specified parts of digestive tract; Z88.0 Allergy status to penicillin; Z79.899 Other long term (current) drug therapy; Z88.8 Allergy status to other drugs, medicaments and biological substances; Z98.51 Tubal ligation status; Z98.891 History of uterine scar from previous surgery
CPT/HCPCS: 36415; 71045; 80053; 82140; 83605; 85025; 96365; 96366; 99285; A9270 ×3; J2060; J3475; J7120 ×2; 80048; 83735; 85610; 99284; J2405; Q3014

== ENCOUNTER 2024-12-18 18:30 | Inpatient (IN) | payer MEDICAID ==
[2024-12-18] MEDS: Haloperidol Lactate 5 MG/ML SDV IM ONE (19:16)
[2024-12-18 19:21] LABS: ANION GAP 16.1 mmol/L (5-15); BILIRUBIN TOTAL 2.3 mg/dL (0.2-1.0); CALCIUM 7.9 mg/dL (8.7-10.3); CARBON DIOXIDE,CO2 24.4 mmol/L (21.0-32.0); CREATININE 0.49 mg/dL (0.51-1.17); EST CRCL DRUG DOSING (CG) 109.62 mL/min; POTASSIUM,K 3.5 mmol/L (3.5-5.1); PROTEIN TOTAL,TP 7.7 g/dL (6.4-8.2)
[2024-12-18 19:22] LABS: BASOPHILS ABSOLUTE AUTO 0.05 10^3/uL (0.00-0.10); BASOPHILS PERCENT AUTO 0.7 % (0.0-1.0); EOSINOPHILS ABSOLUTE AUTO 0.16 10^3/uL (0.10-0.30); EOSINOPHILS PERCENT AUTO 2.1 % (1.0-3.0); HEMATOCRIT 34.4 % (37.0-47.0); HEMOGLOBIN 12.1 g/dL (12.0-16.0); IMMATURE GRAN ABSOLUTE AUTO 0.05 10^3/uL (0.00-0.04); IMMATURE GRAN PERCENT AUTO 0.7 % (0.0-0.4); LYMPHOCYTES ABSOLUTE AUTO 2.55 10^3/uL (1.00-4.00); MEAN CORPUSCULAR HEMOGLOBIN 36.9 pg (27.0-31.0); MEAN CORPUSCULAR HGB CONC 35.2 g/dL (32.0-36.0); MEAN CORPUSCULAR VOLUME 104.9 fL (82.0-92.0); MEAN PLATELET VOLUME 9.7 fL (7.4-10.4); MONOCYTES ABSOLUTE AUTO 0.43 10^3/uL (0.10-0.80); MONOCYTES PERCENT AUTO 5.7 % (2.0-8.0); NEUTROPHILS ABSOLUTE AUTO 4.26 10^3/uL (2.50-7.00); NEUTROPHILS PERCENT AUTO 56.8 % (50.0-70.0); PLATELET COUNT,PLT 121 10^3/uL (150-400); RED BLOOD CELL COUNT 3.28 10^6/uL (3.80-5.50); RED CELL DISTRIBUTION WIDTH 15.2 % (11.5-14.5)
[2024-12-18] MEDS: Midazolam 1 MG/ML 2 ML SDV IVPUSH ONE ×3 (19:28→21:34)
[2024-12-18] MEDS: Sodium Chloride 0.9% 1,000 ML IV SCH (19:44)
[2024-12-18] MEDS: Metoclopramide 10 MG/2 ML SDV IVPUSH ONE (20:23)
[2024-12-18] MEDS ORDERED: Ondansetron 4 MG/2 ML SDV IV PRN (22:25)
[2024-12-18] MEDS ORDERED: Acetaminophen 325 MG Tab PO PRN (22:25)
[2024-12-19] MEDS: LORazepam 2 MG/ML SDV IV PRN (01:17)
[2024-12-19 01:25] VITALS: PULSE 107
[2024-12-19] MEDS ORDERED: Prochlorperazine 5 MG Tab PO PRN (04:21)
[2024-12-19] MEDS ORDERED: hydrOXYzine HCl 25 MG Tab PO PRN (04:21)
[2024-12-19] MEDS ORDERED: Albuterol 0.083% 2.5 MG/3 ML Neb Soln INH PRN (04:21)
[2024-12-19 05:57] VITALS: BP 107/67
[2024-12-19 07:27] LABS: HEMATOCRIT 29.3 % (37.0-47.0); HEMOGLOBIN 9.8 g/dL (12.0-16.0); MEAN CORPUSCULAR HEMOGLOBIN 36.4 pg (27.0-31.0); MEAN CORPUSCULAR HGB CONC 33.4 g/dL (32.0-36.0); MEAN PLATELET VOLUME 9.2 fL (7.4-10.4); PLATELET COUNT,PLT 68 10^3/uL (150-400); RED BLOOD CELL COUNT 2.69 10^6/uL (3.80-5.50); RED CELL DISTRIBUTION WIDTH 15.6 % (11.5-14.5)
[2024-12-19 07:44] LABS: ALBUMIN 2.4 g/dL (3.40-5.00); ANION GAP 13.9 mmol/L (5-15); BILIRUBIN TOTAL 2.3 mg/dL (0.2-1.0); CALCIUM 6.8 mg/dL (8.7-10.3); CARBON DIOXIDE,CO2 23.8 mmol/L (21.0-32.0); CREATININE 0.43 mg/dL (0.51-1.17); EST CRCL DRUG DOSING (CG) 124.92 mL/min; POTASSIUM,K 2.7 mmol/L (3.5-5.1); PROTEIN TOTAL,TP 6.4 g/dL (6.4-8.2)
[2024-12-19 07:50] LABS: MEAN CORPUSCULAR VOLUME 108.9 fL (82.0-92.0)
[2024-12-19] MEDS ORDERED: Potassium Chloride 20 MEQ Tab.ER PO SCH (09:00)
[2024-12-19] MEDS ORDERED: Potassium Chloride 10 MEQ Tab.ER PO SCH (09:00)
[2024-12-19] MEDS ORDERED: Naltrexone 50 MG Tab PO SCH (09:00)
[2024-12-19] MEDS ORDERED: Magnesium Oxide 500 MG Tab PO SCH (09:00)
[2024-12-19] MEDS ORDERED: Non-Formulary Medication 1 Each (Fluticasone Propion/Salmeterol [Advair 250-50 Diskus] 1 E INH SCH (09:00)
[2024-12-19] MEDS ORDERED: NS with KCl 40mEq 1,000 ML IV SCH (10:00)
[2024-12-19] MEDS: Potassium Chloride 20 MEQ Tab.ER PO ONE (10:14)
[2024-12-19] MEDS: WAT IV ONE (10:14)
[2024-12-19] MEDS: FLUoxetine 10 MG Cap PO SCH (10:14)
[2024-12-19] MEDS: Formoterol/Mometasone 200-5 MCG 8.8 GM Inhaler INH SCH (10:14)
[2024-12-19] MEDS: Lactulose Soln 10 GM/15 ML 30 ML UD Cup PO SCH (10:14)
[2024-12-19] MEDS: Pantoprazole 40 MG Tab.CR PO SCH (10:14)
[2024-12-19] MEDS: Enoxaparin 40 MG/0.4 ML Syringe SUBCUT SCH (10:14)
[2024-12-19] MEDS: MAGNESIUM SULF IV ONE (10:14)
[2024-12-19] MEDS: Folic Acid 1 MG Tab PO SCH (10:14)
[2024-12-19] MEDS ORDERED: Potassium Chloride 20 MEQ Tab.ER PO ONE (16:00)
[2024-12-19] MEDS ORDERED: Thiamine 100 MG Tab PO SCH (21:00)
== END 2024-12-19 10:29 | disposition left against medical advice (07) | DRG 894 ==
LOC: KA.ED 18:30 → KA.MS 20:50
PROVIDERS: ADMIT Physician Assistant; ATTEND Internal Medicine
PROC: HZ2ZZZZ Detoxification Services for Substance Abuse Treatment (ICD-10-PCS; principal; 2024-12-19)
DX: F10.239 Alcohol dependence with withdrawal, unspecified (principal); E24.9 Cushing's syndrome, unspecified; F10.229 Alcohol dependence with intoxication, unspecified; Z68.24 Body mass index [BMI] 24.0-24.9, adult; H54.7 Unspecified visual loss; E78.00 Pure hypercholesterolemia, unspecified; I25.2 Old myocardial infarction; J45.909 Unspecified asthma, uncomplicated; K21.9 Gastro-esophageal reflux disease without esophagitis; K76.0 Fatty (change of) liver, not elsewhere classified; G43.909 Migraine, unspecified, not intractable, without status migrainosus; R42 Dizziness and giddiness; F41.9 Anxiety disorder, unspecified; K70.30 Alcoholic cirrhosis of liver without ascites; D64.9 Anemia, unspecified; Y90.8 Blood alcohol level of 240 mg/100 ml or more; F32.A Depression, unspecified; E66.9 Obesity, unspecified; Z88.0 Allergy status to penicillin; Z88.8 Allergy status to other drugs, medicaments and biological substances; Z79.899 Other long term (current) drug therapy; Z90.49 Acquired absence of other specified parts of digestive tract; Z98.891 History of uterine scar from previous surgery; Z98.51 Tubal ligation status
CPT/HCPCS: 36415; 80053; 80307; 83735; 85025; 85027; 96372; 96374; 96375; 99285-25; A9270-GY; J1630; J2060; J2250; J2765; J7030; Q3014